=== PATIENT | male | born 1970 | race Caucasian/White ===

== ENCOUNTER 2024-03-17 03:31 | Emergency (ER) | payer OTHER, SELFPAY ==
[2024-03-17 03:31] VITALS: BP 162/98
--- NOTE | 2024-03-17 03:51 | ED.GENMED ---
History of Present Illness
<BHARAT Fuller - Last Filed: 03/17/24 05:41>
General
Chief Complaint: Throat Problem
Source: patient
Exam Limitations: none
Time Seen by Provider: 03/17/24 03:37
Travel History
Have you had any contact with someone who has COVID-19?: No
Do you have any symptoms of coronavirus? Fever > 100 degrees, chills, cough, shortness of breath, sore throat, loss of taste or smell, muscle aches, or headache?: No
History of Present Illness
History of Present Illness:
53 year old male with hx of CAD, HTN, HLD who presents with 24 hours of severe sore throat. Pt states he woke up last night with severe 10/10 sore throat. States the sore throat resolved during the day however it has returned. Currently he reports
7/10 throat pain. Pain worsens with swallowing. He also reports head ache, runny nose, mild cough, and 2 episodes of diarrhea. Denies fevers/chills, chest pain, SOB, body aches, abdominal pain, nausea, or vomiting. Denies any sick contacts or recent
travel. 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 Pt has taken Aspirin 81 mg and cough drops without relief of symptoms. He took tylenol prior to arrival. States the last time he had a sore throat this severe was last year when he had COVID.
Past History
<BHARAT Fuller - Last Filed: 03/17/24 05:41>
Past History
ED Past Medical History: CAD, HTN and Hypercholesterolemia
ED Past Surgical History: Cardiac (Stents X2)
Social History
Tobacco: Former smoker
Alcohol: None
Drug: Marijuana
Personal: Single
Living: alone
Family History
Family History: Early CAD, CAD and Sudden
Review of Systems
<BHARAT Fuller - Last Filed: 03/17/24 05:41>
Review of Systems
Allergies reviewed?: Yes
All Other Systems: ROS reviewed and negative except as documented in HPI and ROS
Constitutional: Reports no symptoms
EENT: Reports sore throat and other (rhinorrhea)
Respiratory: Reports cough
Cardiac: Reports no symptoms
ABD/GI: Reports diarrhea
: Reports no symptoms
Musculoskeletal: Reports no symptoms
Skin: Reports no symptoms
Neurological: Reports headache
Phy Exam
<[facility] - Last Filed: 03/17/24 05:41>
General Physical Exam
General Presentation: well appearing and no apparent distress
General age: appears stated age
General Skin: warm
General Habitus: obese
General Mental: alert
General Hydration: appears well hydrated
ENT Exam
ENT Exam: TM's normal and pharynx normal
Additional ENT: Oropharynx without erythema or swelling. No tonsillar enlargment or exudate
Cardiovascular Exam
Cardiovascular Exam: regular rate/rhythm, no edema, no gallop and no murmur
Pulmonary Exam
Pulmonary Exam: lungs clear, no respiratory distress, no rales, no crackles, no rhonchi and no wheezing
Gastrointestinal Exam
Gastrointestinal Exam: normal bowel sounds, non tender, soft and non distended
Neurological Exam
Neurological Exam: alert and oriented x3
Skin Exam
Skin Exam: normal color and warm/dry
Psychiatric Exam
Psychiatric Exam: normal mood/affect
Course
<[facility] - Last Filed: 03/17/24 05:41>
Orders/Labs/Results
Orders:
Orders
03/17/24 03:40
COVID-19 Antigen Urgent
Source: Nasal Swab
Influenza A+B Rapid Molecular Urgent
CHIDI Source: Nasal Swab
Specimen Description:
Date Specimen was Collected: 03/17/24
Time Specimen was Collected: 03:37
03/17/24 03:41
Rapid Strep Group A Urgent
CHIDI Source: Throat/Pharynx
Specimen Description:
Date Specimen was Collected: 03/17/24
Time Specimen was Collected: 03:37
03/17/24 04:09
Prednisone [Deltasone] 50 mg PO NOW STA
Vital Signs
Initial and Last Documented VS:
Initial Vital Signs
Temp Pulse Resp BP Pulse Ox
97.9 F 80 24 162/98 98
03/17/24 03:31 03/17/24 03:31 03/17/24 03:31 03/17/24 03:31 03/17/24 03:31
Last Documented Vital Signs
Temp Pulse Resp BP Pulse Ox
97.9 F 80 24 162/98 98
03/17/24 03:31 03/17/24 03:31 03/17/24 03:31 03/17/24 03:31 03/17/24 03:31
<Mery Landrum, DO - Last Filed: 03/17/24 04:23>
Orders/Labs/Results
Orders:
Orders
03/17/24 03:40
COVID-19 Antigen Urgent
Source: Nasal Swab
Influenza A+B Rapid Molecular Urgent
CHIDI Source: Nasal Swab
Specimen Description:
Date Specimen was Collected: 03/17/24
Time Specimen was Collected: 03:37
03/17/24 03:41
Rapid Strep Group A Urgent
CHIDI Source: Throat/Pharynx
Specimen Description:
Date Specimen was Collected: 03/17/24
Time Specimen was Collected: 03:37
03/17/24 04:09
Prednisone [Deltasone] 50 mg PO NOW STA
Vital Signs
Initial and Last Documented VS:
Initial Vital Signs
Temp Pulse Resp BP Pulse Ox
97.9 F 80 24 162/98 98
03/17/24 03:31 03/17/24 03:31 03/17/24 03:31 03/17/24 03:31 03/17/24 03:31
Last Documented Vital Signs
Temp Pulse Resp BP Pulse Ox
97.9 F 80 24 162/98 98
03/17/24 03:31 03/17/24 03:31 03/17/24 03:31 03/17/24 03:31 03/17/24 03:31
<BHARAT Fuller - Last Filed: 03/17/24 05:41>
MDM/Problems Addressed
Differential Diagnosis Includes:
viral vs strep pharyngitis
MDM/Problems Addressed:
53 year old male who presents with 24 hours of sore throat.
Chronic conditions affecting care: HTN, CAD and Psychiatric illness
<BHARAT Fuller - Last Filed: 03/17/24 05:41>
*Critical Care Note
Total Time (30-74mins, 75-104mins- exclusive of procedures): Not Applicable
<Mery Landrum DO - Last Filed: 03/17/24 04:23>
*Pulse Oximetry
Patient hypoxic: no
ED Attending Note
<BHARAT Fuller - Last Filed: 03/17/24 05:41>
-
Portions of this chart may have been created with voice recognition software.� Occasional wrong word or��sound alike� substitutions may have occurred due to the inherent limitations of voice recognition software.
<Mrey Landrum DO - Last Filed: 03/17/24 04:23>
ED Attending Note
Patient seen and examined by attending physician: Yes
I performed the substantive portion of visit, reviewed & personally made and approve the management plan that is documented in note by myself or AMARIS.: Yes
I performed a history and physical exam of patient and discussed management with resident, I reviewed resident's note and agree with documented findings and plan of care.: Yes
ED Attending Note:
This is a 53-year-old gentleman who has history of hypertension, hyperlipidemia, CAD, bipolar disorder who complains of 24-hour history of URI symptoms, mainly sore throat accompanied with mild nasal congestion, intermittent dry cough and mild left
ear discomfort. Sore throat is worse tonight waking him from sleep but after waking he took a dose of Tylenol and since arrival to the ED he admits that sore throat is markedly improved. He denies chest pain or shortness of breath, no neck nor
back pain, no abdominal pain, no nausea nor vomiting, no diarrhea nor constipation. He denies fever nor chills.
No known close contacts with similar symptoms.
No recent travel nor recent antibiotic use.
He admits to similar symptoms 1 year ago and tested positive for COVID-19 at that time. COVID URI resolved without sequela.
He has no history of chronic lung disease. No history of diabetes. Prior history of smoking, quit in 2016.
GENERAL: 53-year-old overweight male appears his stated age, he is bright and alert, pleasant, easily communicative and appears in no acute distress. Speech is clear, non-muffled. No cough appreciated during exam.
EYE: anicteric
NECK: Supple, nontender, no meningismus, no significant adenopathy.
ENT: posterior pharynx is minimally injected without edema nor exudate nor ulcerations, scant clear to pearly postnasal drip is noted, oral mucosa is moist. Left TM without redness or bulging but there is note of pearly effusion behind the left TM.
Right TM and canal are clear. Nares have mildly boggy turbinates with scant clear rhinorrhea.
CARDIAC: Regular rate and rhythm. no murmur.
LUNGS: Clear breath sounds bilaterally, no acute respiratory distress, no wheezes/rales/rhonchi
ABDOMEN: Soft, nondistended, without focal tenderness
NEUROLOGICAL: Alert and oriented x3, no focal neuro deficits. Gait is olivares and steady.
SKIN: Warm and dry, normal color, skin intact. No rash.
MUSCULOSKELETAL: No C/C/E. peripheral pulses are full and equal b/l. No palpable tenderness.
PSYCH: Normal and appropriate interaction.
53-year-old gentleman presents with 24-hour history of URI symptoms without fever.
Overall nontoxic in appearance.
Exam remarkable for serous left otitis media, mild turbinate injection with clear rhinorrhea, clear postnasal drip.
Concern for viral URI, COVID URI, less likely influenza, less likely strep pharyngitis.
Rapid strep, influenza and COVID testing are pending. If unremarkable, history/exam and testing most consistent with viral URI with serous left otitis media.
03/17/2024 0418 AM
Rapid strep is negative as is influenza and COVID.
Will treat viral URI, left serous otitis media with a tapering course of prednisone.
Recommend supportive measures, staying well-hydrated on a daily basis, continue Tylenol as needed for pain, fever.
Elevate head of bed at nighttime.
Prompt follow-up with PCP for recheck.
Return precautions discussed.
Discharge Plan
Departure
Patient Disposition: Home (Routine Discharge)
Date of Disposition: 03/17/24
Time of Disposition: 04:20
Patient with high blood pressure during this ER visit?: No
Condition: Good
Discharge Problem:
Viral upper respiratory infection, Acute serous otitis media of left ear
Instructions: Sore Throat, Adult (DC), Serous Otitis Media, Upper respiratory infection in adults - Discharge instructions
Prescriptions:
New
prednisone 10 mg Tablet
See Rx Instructions .ROUTE .COMPLEX Qty: 30 0RF
Rx Instructions:
Take By Mouth:
40 mg daily x3 days, 30 mg daily x3 days,
20 mg daily x3 days, 10 mg daily x3 days.
No Action
clopidogrel 75 MG tablet
75 mg PO DAILY Qty: 90 3RF
lisinopril 40 MG tablet
20 mg PO HS
hydroxyzine HCl 10 MG tablet
10 mg PO HS
atorvastatin 80 MG tablet
80 mg PO HS
metoprolol succinate 50 MG tablet extended release 24 hr
50 mg PO HS
aspirin 81 MG tablet,delayed release (DR/EC)
81 mg PO DAILY
pantoprazole 40 MG tablet,delayed release (DR/EC)
40 mg PO HS
nitroglycerin 0.4 MG tablet, sublingual
0.4 mg sublingual [id number] PRN (Reason: chest pain)
quetiapine [Seroquel XR] 150 MG tablet extended release 24 hr
150 mg PO HS
isosorbide mononitrate 30 MG tablet extended release 24 hr
60 mg PO DAILY
divalproex 500 MG tablet,delayed release (DR/EC)
1,000 mg PO HS
divalproex 500 MG tablet,delayed release (DR/EC)
500 mg PO DAILY
clonazepam 1 MG tablet
1 mg PO BID
albuterol sulfate [ProAir HFA] 90 mcg/actuation Hfa Aerosol Inhaler
2 puff INHALATION R Q4HPRN PRN (Reason: shortness of breath) Qty: 6.7 0RF
tramadol 100 mg tablet
100 mg PO Q4H PRN (Reason: pain) Qty: 11 0RF
penicillin V potassium 500 mg tablet
500 mg PO Q6H 7 Days Qty: 28 0RF
tramadol 50 mg tablet
50 mg PO Q6H PRN (Reason: pain) Qty: 19 0RF
Rx Instructions:
1-2 tablets q6h prn pain
Referrals:
Jermaine Hager PA-C [Family Provider] -
Interventions
Interventions:
*Risk Screen - Suicide Last Done: 03/17/24 03:31
*Neglect/Abuse Screening Last Done: 03/17/24 03:31
*Nursing Disposition Last Done: 03/17/24 04:28
ED-EENT Assessment Last Done: 03/17/24 04:12
ED- Pulmonary Assessment Last Done: 03/17/24 04:12
Discharge Date and Time
Discharge Date/Time: 03/17/24 04:28
Print Language: WALLISIAN
[2024-03-17 04:04] LABS: COVID-19 Antigen Negative (Negative)
[2024-03-17] MEDS: DELTASONE 50 MG PO (04:25)
== END 2024-03-17 04:28 | disposition home or self-care (01) ==
LOC: EMR 03:31
PROVIDERS: EMERGENCY PHYSICIAN Emergency Medicine; FAMILY PHYSICIAN Physician Assistant Medical
DX: J06.9 Acute upper respiratory infection, unspecified (principal); H65.02 Acute serous otitis media, left ear; I10 Essential (primary) hypertension; I25.10 Atherosclerotic heart disease of native coronary artery without angina pectoris; F31.9 Bipolar disorder, unspecified; E78.00 Pure hypercholesterolemia, unspecified; Z11.52 Encounter for screening for COVID-19; Z87.891 Personal history of nicotine dependence
CPT/HCPCS: 99283; 87070; 87502; 87811; 87880

== ENCOUNTER 2024-03-29 17:08 | Inpatient (IN) | payer OTHER, SELFPAY ==
[2024-03-29] VITALS (9 sets, daily range): BP systolic 120–160; BP diastolic 76–97; BMI 40.4
--- NOTE | 2024-03-29 14:23 | ED.GENMED ---
History of Present Illness
General
Chief Complaint: Chest Pain
Source: patient
Exam Limitations: none
Time Seen by Provider: 03/29/24 14:19
Nursing documentation reviewed up to this point in time: agreed with
Travel History
Have you had any contact with someone who has COVID-19?: No
Do you have any symptoms of coronavirus? Fever > 100 degrees, chills, cough, shortness of breath, sore throat, loss of taste or smell, muscle aches, or headache?: No
History of Present Illness
History of Present Illness:
53 yo male presents emergency department due to chest pain started an hour ago. He has been having chest pain every day for the past month. He has multiple cardiac stents and follows with Dr. Melton. It is in the center of his chest and the left
side of his chest. He takes isosorbide and it does help him. Worse with exertion.
Past History
Past History
ED Past Medical History: CAD, HTN and Hypercholesterolemia
ED Past Surgical History: Cardiac (Stents X2)
Social History
Tobacco: Former smoker
Alcohol: None
Drug: Marijuana
Personal: Single
Living: alone
Family History
Family History: Early CAD, CAD and Sudden
Review of Systems
Review of Systems
Allergies reviewed?: Yes
All Other Systems: Not applicable
Constitutional: Reports no symptoms
EENT: Reports no symptoms
Respiratory: Reports no symptoms
Cardiac: Reports chest pain
ABD/GI: Reports no symptoms
: Reports no symptoms
Musculoskeletal: Reports no symptoms
Skin: Reports no symptoms
Neurological: Reports no symptoms
Endocrine: Reports no symptoms
Hematologic/Lymphatic: Reports no symptoms
Psychiatric: Reports no symptoms
Phy Exam
Physical Exam
Physical Exam:
Physical Exam
General: no apparent distress, not acutely ill
Neck: supple. no meningeal signs. normal posterior pharynx
Heart: s1/s2 regular rate and rhythm, no murmur. equal radial
pulses.
HEENT: Pupils equal round reactive to light, EOMI
Lungs: no acute respiratory distress. clear bilaterally
Abdomen: normal bowel sounds. not tender. no CVAT
Neuro: alert and oriented. no focal neurological deficits cranial nerves II through XII intact
Skin: no rash
Psychiatric: well kept. interactive and cooperative
Extremities: no edema. no calf tenderness. negative homans. good distal pulses
Scores
Heart Score for Chest Pain Patients
STEMI patient?: No
History: Moderately Suspicious
ECG: Nonspecific Repolarization
Age: >45 - <65 years
Risk Factors: >/= 3 Risk Factors or History of CAD
Troponin: >/= 3 x Normal Limit
Heart Score for Chest Pain Patients: 7
Heart Score Risk: 72.7 % MACE over next 6 weeks
Course
Orders/Labs/Results
Orders:
Orders
03/29/24 13:09
Electrocardiogram (*1) Urgent
Reason for Study: Chest Pain
EKG- Treatment ONCE
03/29/24 14:20
Complete Blood Count/With Diff Urgent
Comprehensive Metabolic Panel Urgent
D-Dimer Urgent
Glycohemoglobin (HgbA1c) Urgent
Magnesium Urgent
PTT Urgent
Comment: HGBA1C & PTT ADDED ON BY FLOOR 3PM 03-29-24
Troponin I Urgent
03/29/24 14:44
Aspirin Chewable [Low Strength Aspirin] 324 mg PO NOW STA
03/29/24 Dinner
NPO
Allow oral meds: Yes
Allow clear liquids: No
NPO with Ice Chips: No
03/29/24 15:06
Add On- LAB Routine
Tests Added?: Hgba1c
03/29/24 15:07
Echo 2D MMode Color/Doppler Urgent
Reason for Study: CAD, chest pain
03/29/24 15:09
Heparin 4,000 units IV NOW STA
Heparin Protocol- PTT Orders As Directed
PTT per Heparin protocol: -Obtain CBC and baseline PTT - if not already collected.
-Obtain PTT 6 hours from start of infusion. Then, every 6 hours until 2 consecutive
PTT's are therapeutic. Then, PTT Daily.
-With each rate change, obtain PTT every 6 hours until 2 consecutive PTT's are
therapeutic. Then, PTT Daily.
Notify MD As Directed
Notify physician if: PTT is greater than or equal to 200.
03/29/24 15:12
Add On- LAB Urgent
Tests Added?: PTT
03/29/24 15:15
Heparin 18800 Units/250 ml 25,000 units in 250 ml IV PER PROTOCOL
Weight to be used for heparin protocol in kilograms (kg):: 124
Protocol:: Cardiac Tx/Acute Coronary
PTT Goal Range to be used:: PTT 73 to 111 seconds
Order type:: Initial
INITIAL Infusion Dose (UNITS/KG/hr) & then follow protocol:: 12 units/kg/hr
Infusion Dose in UNITS/hr & then follow protocol (UNITS/hr):: 1,000
INFUSION RATE in mL/hr & then follow protocol (mL/hr):: 10
PTT less than or equal to 64 seconds:: Increase rate by 200 units/hr (+ 2 mL/hr)
PTT 64.1 to 72.9 seconds:: Increase rate by 100 units/hr (+ 1 mL/hr)
PTT 73 to 111 seconds:: Target Range. No change in rate.
PTT 111.1 to 130.9 seconds:: Decrease rate by 100 units/hr (- 1 mL/hr)
PTT 131 to 199.9 seconds:: HOLD for 1 hr. Then decrease rate by 200 units/hr (- 2 mL/hr)
PTT greater than or equal to 200 seconds:: HOLD for 2 hrs & Notify Provider. Then decrease by 200 units/hr (-
2 mL/hr)
Lab follow-up:: Each change, PTT q6h until 2 consecutive are therapeutic. Then PTT
daily.
03/29/24 16:00
CARDIOLOGY CONSULT Routine
Consulting Provider: Kraig Chapa
Was physician already notified: Yes
Reason for consult: [place]
03/29/24 16:03
Clopidogrel Bisulfate [Plavix] 75 mg PO NOW STA
03/29/24 16:07
Admit/Transfer Patient As Directed
Co-Sign Provider:
Level of Care: Inpatient admission
Assign to:: IVU
Physician / Group: darius mckenna
Diagnosis: Unstable angina
Reason for Hospitalization: Unstable angina
Expected length of stay greater than two midnights?: Yes
ELOS- Estimated Length of Stay in days: 3
I certify the patient meets the requirements for IP care: Yes
Code Status As Directed
Resuscitation Status: Full Code
03/29/24 16:14
Nitroglycerin Sublingual [Nitrostat (Sublingual)] 0.4 mg SL NOW STA
03/29/24 16:16
Verapamil Injectable [Isoptin/Verapamil Injection] 5 mg .ROUTE .STK-MED ONE
03/29/24 16:17
Heparin 1000 Units/500 ml [Heparin] 1,000 units in 500 ml .ROUTE .STK-MED
Heparin Sodium,Porcine/Ns/Pf [Heparin 2000 Units/1000 ml] 2,000 unit in 1,000 ml .ROUTE .STK-MED
Lidocaine HCl/Pf [Xylocaine-Mpf 1% Vial] 50 mg .ROUTE .STK-MED ONE
Nitroglycerin [Tridil] 1,500 mcg .ROUTE .STK-MED ONE
03/29/24 16:23
Fentanyl Citrate/Pf [Sublimaze] 100 mcg .ROUTE .STK-MED ONE
Heparin 10,000 units .ROUTE .STK-MED ONE
Midazolam HCl [Versed] 2 mg .ROUTE .STK-MED ONE
03/29/24 17:31
Dextrose 50%-Water [Dextrose 50% Syringe] 12.5 grams IV [id number] PRN
Glucagon [GlucaGen] 1 mg IM PRN PRN
Insulin Aspart Corrective Low [Novolog Flexpen-Low Resistance] See Protocol SC AC
acetaminophen 1,300 mg PO Q8HPRN PRN
03/29/24 17:31
VTE Contraindication Routine
VTE Mechanical Device Contraindication: Medical Contraindication
Pharmocologic Contraindication: Medical Contraindication
Comment: pt on iv heparin
Activity As Directed
Activity Level: As Tolerated
Bedside Glucose Monitoring As Directed
Frequency: AC&HS
Additional Instructions:: Change to q6h if pt on TPN, tube feeding or not eating
Intake/ Output As Directed
Frequency: Per unit guidelines
Vital Signs As Directed
Frequency: Per unit guidelines
Weight As Directed
Frequency: Daily
Ot Eval And Treat Routine
Pt Eval And Treat Routine
Activity Level: As Tolerated
03/29/24 20:00
Clonazepam [Klonopin] 1 mg PO BID
03/29/24 22:00
Atorvastatin [Lipitor] 80 mg PO HS
Divalproex Delayed Rel. 12 Hr [Depakote (12 Hr Release)] 1,000 mg PO HS
HydrOXYZINE [Atarax] 10 mg PO HS
Lisinopril [Zestril] 20 mg PO HS
Metoprolol Xl [Toprol Xl] 50 mg PO HS
Pantoprazole [Protonix] 40 mg PO HS
Trazodone [Desyrel] 100 mg PO HS
03/30/24 06:00
EKG [Electrocardiogram (*1)] IN AM
Reason for Study: Chest Pain
Cardiovascular Evaluation IN AM
Complete Blood Count/With Diff IN AM
Glycohemoglobin (HgbA1c) IN AM
03/30/24 08:00
Bupropion(12Hr)Sustain Release [WELLBUTRIN SR (12 hour sustained release)] 200 mg PO DAILY
Divalproex Delayed Rel. 12 Hr [Depakote (12 Hr Release)] 500 mg PO DAILY
ISOSORBIDE MONOnitrate ER [Imdur (Extended Release)] 60 mg PO DAILY
Lamotrigine [Lamictal] 100 mg PO DAILY
Abnormal Lab Results
03/29/24
14:20
Abs Immat Gran (auto) 0.1 H 10^3/uL
(0-0.05)
Immature Gran % 1.4 H %
(0-0.5)
Glucose 205 H mg/dl
(70-99)
Troponin I 0.200 H* ng/ml
03/29/24 14:20
03/29/24 14:20
Vital Signs
Initial and Last Documented VS:
Initial Vital Signs
Temp Pulse Resp BP Pulse Ox
97.9 F 86 20 160/97 97
03/29/24 13:13 03/29/24 13:13 03/29/24 13:13 03/29/24 13:13 03/29/24 13:13
Last Documented Vital Signs
Temp Pulse Resp BP Pulse Ox
97.6 F 72 20 141/89 97
03/29/24 17:47 03/29/24 16:15 03/29/24 17:47 03/29/24 14:06 03/29/24 18:30
MDM/Problems Addressed
Differential Diagnosis Includes:
ACS, PE
MDM/Problems Addressed:
53-year-old male with NSTEMI. Admit to hospitalist. Discussed with Dr. Chapa, who states patient will go to [facility].
Chronic conditions affecting care: CAD
Acute Exacerbation and/or Progression of Chronic Illness: CAD
*Pulse Oximetry
Patient hypoxic: no
*EKG
Interpreted by ED Provider?: Yes
EKG Intrepretation Date: 03/29/24
EKG Intrepretation Time: 13:12
Interpretation: abnormal
Comparison EKG: no changes
Heart Rate: 74
Rate: normal
Rhythm: sinus
Lohman: normal axis
Interval: normal interval
QRS Pattern: normal QRS
Ischemia: non-specific ST changes
*Talent Agent Interpretation
Rate: normal
Interpretation: normal
Heart Rate: 68
Rhythm: sinus
*Critical Care Note
Total Time (30-74mins, 75-104mins- exclusive of procedures): 30
comment:
Critical care statement: A total of 30 minutes of critical care time was provided for this patient. This includes management of unstable vital signs, evaluation of the patient at bedside, reviewing the patient's pertinent medical records, discussion
with consultants, review of old EKGs and review of pertinent medical records. This time with separate from time utilized to perform the aforementioned documented procedures
Data Reviewed
Review of Other/Old Records Reveals: Operative Reports (Prior cardiac catheterization 04/12/2021, OM 2 stenosis with SHANA placed)
Source: records
Patient Management
Discussion with other providers: Hospitalist and [employer] (Cardiology Dr. Chapa)
Escalation/DeEscalation of care consider admission/obs:
Admit indicated
ED Attending Note
-
Portions of this chart may have been created with voice recognition software.� Occasional wrong word or��sound alike� substitutions may have occurred due to the inherent limitations of voice recognition software.
Discharge Plan
Departure
Patient Disposition: Admit
Date of Disposition: 03/29/24
Time of Disposition: 15:04
Admit to: IVU
Presentation/result/management discussed w/ accepting MD/DO: Hospitalist
Patient with high blood pressure during this ER visit?: Yes
Condition: Good
Discharge Problem:
Unstable angina
Interventions
Interventions:
*Risk Screen - Suicide Last Done: 03/29/24 13:13
*General Assessment Last Done: 03/29/24 13:13
*Neglect/Abuse Screening Last Done: 03/29/24 13:13
ED- Fall Risk Assessment Last Done: 03/29/24 14:03
*ED COVID-19 Vaccine History Last Done: 03/29/24 13:56
*Nursing Disposition Last Done: 03/29/24 16:42
ED- Cardiac Assessment Last Done: 03/29/24 14:03
Discharge Date and Time
Discharge Date/Time: 03/29/24 16:44
[2024-03-29 14:27] LABS: % Basophils 0.3 % (0-2); % Eosinophils 0.8 % (0-6); % Immature Granulocytes 1.4 % (0-0.5); % Lymphocytes 26.3 % (20.5-51.1); % Monocytes 6.4 % (1.7-9.3); % Neutrophils 64.8 % (42.2-75.2); Absolute Eosinophils 0.1 10^3/uL (0-0.7); Absolute Immature Granulocytes 0.1 10^3/uL (0-0.05); Absolute Lymphocytes 2.6 10^3/uL (1.2-3.4); Absolute Monocytes 0.6 10^3/uL (0.1-0.6); Absolute Neutrophils 6.5 10^3/uL (1.4-6.5); Hematocrit 42.8 % (39.0-52.0); Hemoglobin 14.4 g/dL (13.0-18.0); Mean Corp Hgb Conc. 33.6 g/dL (33.0-37.0); Mean Corpuscular Hgb 29.4 pg (27.0-31.0); Mean Corpuscular Volume 87.3 fL (80.0-94.0); Mean Platelet Volume 9.4 fL (7.4-10.4); Nucleated Red Blood Cells % 0 % (-); Platelet Count 206 10^3/uL (130-400); Red Cell Dist. Width 13.8 % (11.5-14.5)
[2024-03-29 14:43] LABS: ALT (SGPT) 34 U/L (0-50); AST (SGOT) 23 U/L (17-59); Albumin 4.1 g/dl (3.5-5.0); Alkaline Phosphatase 69 U/L (38-126); Blood Urea Nitrogen 13 mg/dl (9-20); Calcium 9.6 mg/dl (8.4-10.2); Carbon Dioxide 26 mmol/L (22-30); Chloride 102 mmol/L (98-107); Estimated Creatinine Clearance > 125 ml/min; Glucose 205 mg/dl (70-99); Magnesium 1.8 mg/dl (1.6-2.3); Potassium 3.9 mmol/L (3.5-5.1); Sodium 138 mmol/L (135-145); Total Bilirubin 0.3 mg/dl (0.2-1.3); Total Protein 6.9 g/dl (6.3-8.2); eGFR > 60.00
[2024-03-29] MEDS: LOW STRENGTH ASPIRIN 324 MG PO (15:00)
[2024-03-29 15:05] LABS: D-Dimer < 0.27 ug/mlFEU (0.00-0.50)
[2024-03-29] MEDS: HEPARIN 25000 UNITS/250 ML IV ×2 (15:19→23:33)
[2024-03-29] MEDS: HEPARIN 4000 UNITS IV (15:19)
--- NOTE | 2024-03-29 15:30 | CON.CAR ---
Addendum entered and electronically signed by Kraig Chapa MD 03/29/24 17:26:
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
-53-year-old male with CAD status-post multiple stents over the past decade (partially noncompliant with Cardiology follow-up and medications as patient was last seen in the office over a year and a half ago, and he stopped taking aspirin 6 months
ago), hypertension, hyperlipidemia, diabetes (likely poorly controlled), obesity, and severe anxiety/depression (on multiple medications for this) presenting with chest pain highly concerning for unstable angina.
-The patient's troponin is mildly elevated, concerning for an NSTEMI.
-Will start the patient on a heparin drip; full dose aspirin now.
-Case discussed with Interventional Cardiology; cardiac catheterization recommended today.
-Admit to the Hospitalist service, given comorbidities listed above.
-Check hemoglobin A1c and lipid panel.
-High-dose statin.
-Telemetry monitoring; will follow.
Original Note:
Consultation
Consultation Request
Date/Time Consultation Requested: 03/29/24 3p
Date/Time Consultation Performed: 03/29/24 3:15p
Requesting Provider: Dr. Carnes
Performing Provider: RAFAT Izquierdo for Dr. Chapa
Reason for Consultation: chest pain
Medical History
-
Chief Complaint: chest pain
History of Present Illness:
Mr. Kuhn is a 53 year-old male with CAD (RCA, LCx SHANA 07/2016, then mid LAD SHANA 07/2017, then SHANA of high-grade ostial OM2 03/2021), hypertension, former tobacco use (quit 10 years ago), dyslipidemia, NIDDM, obesity, and anxiety, who presents to the
ER with c/o chest pain for 1 month. Chest pain is severe, occurs sometimes with rest and always with exertion, and resolves with rest. He admits to NOT taking ASA 81mg daily for the last 6 months for unclear reasons. Currently his chest pain is a
11/01. He has not been seen in our office in 2 years. EKG NSR 74 bpm, unchanged from previous. Initial troponin 0.200.
Past Medical History
Past Medical History: Other (as above)
Past Surgical History: Orthopedic (left knee)
Social History
Tobacco: Former Smoker (quit 10 years ago)
Alcohol: None
Personal: Single
Living: With Roomate (girlfriend )
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
Allergies / Home Medications
Allergy/AdvReac Type Severity Reaction Status Date / Time
No Known Allergies Allergy Verified 03/29/24 13:17
�Medication �Instructions �Recorded �Confirmed �Type
clopidogrel 75 mg tablet 75 mg PO DAILY ##90 08/09/16 04/12/21 Rx
hydroxyzine HCl 10 mg tablet 10 mg PO HS 03/30/17 04/12/21 History
lisinopril 40 mg tablet 20 mg PO HS 03/30/17 04/12/21 History
aspirin 81 mg tablet,delayed 81 mg PO DAILY 08/21/17 04/13/21 History
release
atorvastatin 80 mg tablet 80 mg PO HS 08/21/17 04/12/21 History
metoprolol succinate 50 mg 50 mg PO HS 08/21/17 04/12/21 History
tablet,extended release 24 hr
nitroglycerin 0.4 mg sublingual 0.4 mg sublingual [id number] PRN 09/14/18 04/12/21 History
tablet chest pain
pantoprazole 40 mg tablet,delayed 40 mg PO HS 09/14/18 04/12/21 History
release
clonazepam 1 mg tablet 1 mg PO BID 04/12/21 04/12/21 History
divalproex 500 mg tablet,delayed 1,000 mg PO HS 04/12/21 04/12/21 History
release
divalproex 500 mg tablet,delayed 500 mg PO DAILY 04/12/21 04/12/21 History
release
isosorbide mononitrate 30 mg 60 mg PO DAILY 04/12/21 04/12/21 History
tablet,extended release 24 hr
quetiapine 150 mg tablet,extended 150 mg PO HS 04/12/21 04/12/21 History
release 24 hr (Seroquel XR)
albuterol sulfate 90 mcg/actuation 2 puff inhalation R Q4HPRN PRN 02/04/23 Rx
aerosol inhaler (ProAir HFA) shortness of breath #6.7 grams
penicillin V potassium 500 mg 500 mg PO Q6H 7 days #28 tabs 02/18/23 Rx
tablet
tramadol 100 mg tablet 100 mg PO Q4H PRN pain #11 tabs 02/18/23 Rx
tramadol 50 mg tablet 50 mg PO Q6H PRN pain #19 tabs 02/18/23 Rx
prednisone 10 mg tablet See Rx Instructions .Route 03/17/24 Rx
.COMPLEX #30 tabs
Review of Systems
-
History Source: Patient
All other systems: Negative unless noted
Physical Exam
Vital Signs
Temp Pulse Resp BP Pulse Ox
97.9 F 82 20 141/89 96
03/29/24 13:13 03/29/24 14:06 03/29/24 13:13 03/29/24 14:06 03/29/24 14:06
Lab Results
03/29/24 14:20
03/29/24 14:20
Troponin I 0.200 ng/ml H* 03/29/24 14:20
Physical Exam
General: Well Developed, Well Nourished and No Apparent Distress
HEENT: Normocephalic, Anicteric and Moist Mucous Membranes
Respiratory: Clear
Cardiac: S1/S2 and Regular Rhythm
GI: Soft, Non Tender and Normal Bowel Sounds
Rectal: Deferred by Provider
Genito-urinary: No Costovertebral Tender
Musculoskeletal: No Clubbing, No Cyanosis and No Edema
Skin: Warm and Dry
Neuro: AO x 3
Hematologic/Lymphatic: No Lymphadenopathy
Psych: Calm
Impression / Plan
-
NSTEMI - initial troponin 0.200, trend to peak.
- exertional and non-exertional chest pain for 1 month, resolves with rest.
- ASA 325mg and IV Heparin drip.
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
CAD - SHANA to RCA, LCX, mid LAD and ostial OM2 (2020).
- NSTEMI as above.
- has not been taking ASA 81mg daily, unclear reasons.
- he has not been seen in our office in 2 years.
- suspect medication noncompliance.
HTN - continue outpatient meds, lisinopril, Toprol, Imdur.
- monitor.
HLD - Lipitor 80mg daily.
- lipid profile in 2021 - TC 238, TG 285, LDL 150, HDL 35.
- check lipid profile.
- with CAD, goal LDL is < 55.
NIDDM - on metformin per pcp.
- hgba1c 6.8% 08/2022.
- per hospitalist.
Anxiety - continue meds.
Data Reviewed
-
EKG: Tracing Personally Visualized and interpreted (NSR 74 bpm, unchanged from previous.)
Labs: Labs Reviewed by me
Old Records: Reviewed
[2024-03-29 15:33] LABS: APTT 26.9 Sec (23.4-35.0)
--- NOTE | 2024-03-29 15:35 | HPS.HSE ---
Addendum entered and electronically signed by Edis Russell MD 03/29/24 16:16:
I saw and examined the patient.
The HAND CHAIN MAKER or PA's note was reviewed and I agree with the note.
Comment:
53 yo male w/ pmhx of �HTN, HLD, CAD/stent circumflex, RCA, 2016, OM 24 March 2021, history of CAD with LAD disease, arthritis, eczema, bipolar disorder, depression, history of COVID, hemorrhoids now coming in for chest pain an hour ago.� Describes
chest pain in the center and left side of his chest, worsened with exertion. Has been happening intermittently for about 1 month. Has not taken asa for 6 months. Stopped on his own. �Vitals, BP 141/89, pulse 82, respiratory rate of 20, afebrile.� 97
percent on room air.� Troponin is 0.2.� EKG with no obvious acute findings.� Admitted to medicine due to mild hyperglycemia, bipolar disease.� Plan�unstable angina, planning for cath today.� Aspirin, heparin drip. �Statin hydration. �Follow-up with
lipid panel, hemoglobin A1c.� Insulin sliding scale, will hold metformin. Cont psych meds
Original Note:
Family Physician
-
Family Physician: Jermaine Hager
Chief Complaint
-
Chest pain
History of Present Illness
53-year-old male complaining of chest pain midsternal on and off for the past few weeks lasting approximately 1 hour. He does report occasional indigestion did have some today after eating eggs and biscuits this morning. He reports he missed his
Protonix for the past few days. He denies any radiation of the chest pain, diaphoresis, nausea, fever, chills, shortness breath, cough, abdominal pain, nausea, vomiting, diarrhea, urinary symptoms. He has past medical history of CAD with 4 stents.
He does state that he has not been taking his aspirin for at least 6 months to 1 year because he forgot. He also reports he stopped his Seroquel and Ambien as the combination of those with his other medications was making him confused and walking
into bill.
He has past medical history HTN, HLD, CAD/stent circumflex, RCA, 2015, OM 24 March 2021, history of CAD with LAD disease, arthritis, eczema, bipolar disorder, depression, history of COVID, hemorrhoids, obesity due to excess calorie consumption�BMI
40.4 kg.
Medical History
Past Medical History
Past Medical History: Reports Other
Additional Past Medical History:
HTN
HLD
CAD/stent circumflex, RCA, 2015, OM 24 March 2021, history of CAD with LAD disease
Former smoker 35-year 1 pack a day quit 10 years ago
arthritis
eczema
bipolar disorder
depression
Morbid obesity
history of COVID
hemorrhoids
Past Surgical History: Reports Other
Additional Past Surgical History:
Knee arthroscopy 20 years ago
Undescended testicle repair 35 years ago
PTCA/stent circumflex, RCA 08/08/2016, stent OM 11/28/2020
Left knee meniscus repair 2020
Social History
Tobacco: Former Smoker (Former smoker 35-year 1 pack a day quit 10 years ago)
Drug: None
Personal: Other (Girlfriend Marianela)
Living: With Family (Girlfriend Marianela)
Family History
Family History: CAD (Mother and father CAD/CABG both 74) and Other (Brother history multiple CVA starting at age 30 age 65, brother drug overdose, 1 brother/1 sister estranged from)
Allergies / Home Medications
Allergies reflects when Allergies were last updated in [facility].
Home Medications with original date entered in [facility]
Allergy/Medication List:
Allergies
Allergy/AdvReac Type Severity Reaction Status Date / Time
No Known Allergies Allergy Verified 03/29/24 13:17
Home Medications
clopidogrel 75 mg tablet 75 mg PO DAILY ##90 08/09/16
hydroxyzine HCl 10 mg tablet 10 mg PO HS 03/30/17
lisinopril 40 mg tablet 20 mg PO HS 03/30/17
atorvastatin 80 mg tablet 80 mg PO HS 08/21/17
metoprolol succinate 50 mg tablet,extended release 24 hr 50 mg PO HS 08/21/17
nitroglycerin 0.4 mg sublingual tablet 0.4 mg sublingual [id number] PRN chest pain 09/14/18
pantoprazole 40 mg tablet,delayed release 40 mg PO HS 09/14/18
clonazepam 1 mg tablet 1 mg PO BID 04/12/21
divalproex 500 mg tablet,delayed release 1,000 mg PO HS 04/12/21
divalproex 500 mg tablet,delayed release 500 mg PO DAILY 04/12/21
acetaminophen 650 mg tablet,extended release 1,300 mg PO Q8HPRN PRN mild pain 03/29/24
bupropion HCl 200 mg tablet,12 hr sustained-release 200 mg PO DAILY 03/29/24
isosorbide mononitrate 60 mg tablet,extended release 24 hr 60 mg PO DAILY 03/29/24
lamotrigine 100 mg tablet 100 mg PO DAILY 03/29/24
metformin 500 mg tablet 500 mg PO DAILY 03/29/24
quetiapine 400 mg tablet,extended release 24 hr 400 mg PO HS 03/29/24
trazodone 100 mg tablet 100 mg PO HS 03/29/24
zolpidem 10 mg tablet 10 mg PO HS 03/29/24
Review of Systems
-
History Source: Patient
A 12 point ROS was completed and negative except as noted: Yes
Constitutional: Denies Fever, Fatigue or Chills
EENT: Denies Sore Throat or Runny Nose
Respiratory: Denies Cough or Trouble Breathing
Cardiac: Reports Chest Pain (Midsternal); Denies Diaphoresis, Palpitations or Syncope
Abdomen/GI: Reports Other (Indigestion today); Denies Abdominal Pain, Nausea, Vomiting, Diarrhea, Constipated, Bloody Stools or Black Stools
: Denies Dysuria, Frequency, Flank Pain, Incontinence, Difficulty Voiding or Urgency
Musculoskeletal: Denies Joint Pain or Edema
Skin: Denies Itching or Rash
Neurological: Denies Dizzy, Headache or Weakness
Endocrine: Reports No Symptoms
Hematologic/Lymphatic: Reports No Symptoms
Psych: Reports Calm
Physical Exam
Vital Signs
Vital Signs
Temp Pulse Resp BP Pulse Ox
97.9 F 82 20 141/89 96
03/29/24 13:13 03/29/24 14:06 03/29/24 13:13 03/29/24 14:06 03/29/24 14:06
Physical Exam
General: Conversant, Pain (2/10) and Morbidly Obese; No Chills
HEENT: NormoCephalic, Anicteric, Moist mucous membranes, PERRLA, [place] Conjunctivae and No Ptosis
Respiratory: Clear; No Wheezes, Rales or Rhonchi
Cardiac: S1/S2 and Regular Rhythm; No Murmur, Rub, Gallop or Peripheral Edema
Breast: Deferred by me
GI: Soft, Non Tender, Non Distended, Normal Bowel Sounds and No Hepatosplenomegaly
Genito-urinary: Deferred by me
Musculoskeletal: No Clubbing, No Cyanosis and No Edema
Skin: Warm and Dry; No Rash
Neuro: AO x 3, No Motor Deficits, Nonfocal/grossly intact, Cranial Nerves Intact and No Sensory Deficits; No Slurred Speech, Facial Droop or Tremors
Psych: Calm
Laboratory Results
-
03/29/24 14:20
03/29/24 14:20
Laboratory Results
Total Bilirubin 0.3 mg/dl (0.2-1.3) 03/29/24 14:20
AST 23 U/L (17-59) 03/29/24 14:20
ALT 34 U/L (0-50) 03/29/24 14:20
Alkaline Phosphatase 69 U/L (38-126) 03/29/24 14:20
Troponin I 0.200 ng/ml H* 03/29/24 14:20
Data Reviewed
-
Lab Data: Labs Reviewed by me
Impression/Plan
-
Impression/plan:
Admit to IVU
#Unstable angina with troponin elevation
#CAD�PTCA/stent circumflex, RCA 08/08/2016, stent OM 11/28/2020
Troponin 0.2 will trend
-N.p.o. for cath today
-Check lipid profile, HgbA1c
-IV heparin drip
-Will give patient's Plavix 75 mg now he missed this a.m.
-Nitro sublingual now for current chest pain short of 10
-Aspirin 324 mg now then aspirin 81 mg daily(patient had stopped it 6 months - 1 year ago)
-Continue atorvastatin 80 mg at bedtime, Plavix 75 mg daily, Imdur 60 mg daily, metoprolol succinate 50 mg at bedtime
2D echo 12/26/2019: EF 55 to 60%, mild LVH, no valvular disease
EKG: NSR 74 bpm, QTc 386 MS no significant change from February 04, 2023
#HTN�benign
BP 141/89
-Continue lisinopril 20 mg at bedtime, Imdur 60 mg daily, metoprolol succinate 50 mg at bedtime with hold parameters
#DM2 with hyperglycemia
BS 205
Accu-Cheks with SSI, check HgbA1c
-Hold metformin 500 mg daily
#GERD
-Continue Protonix 40 mg at bedtime
#Bipolar disorder
-Continue , trazodone 100 mg at bedtime, Depakote 500 mg a.m., 1000 g at bedtime, Wellbutrin 20 mg daily
-Continue clonazepam 1 mg twice daily
-Pt stopped Seroquel 400 mg at bedtime/, Ambien 10 mg at bedtime 2 weeks ago due to feeling off and walking into bill
#Insomnia
-Continue hydroxyzine 10 mg at bedtime
Pt stopped , Ambien 10 mg at bedtime 2 weeks ago
#Obesity due to excess calorie consumption�BMI 40.4 kg
Affects all aspects of care
-Weight loss recommended, low-fat diet
DVT prophylaxis
-Continue IV heparin drip
Full code
[2024-03-29] MEDS: PLAVIX 75 MG PO (16:11)
--- NOTE | 2024-03-29 17:41 | ITS.CL.CATH ---
Health Unit Clerk - Catheterization
Cardiac Catheterization
Procedure Report:
CARDIAC CATHETERIZATION REPORT
Date of Procedure: 03/29/2024
Referring: Kraig Chapa M.D.
INDICATION: Non-ST elevation myocardial infarction.
PROCEDURE:
1. Left heart catheterization.
2. Coronary angiography.
3. Successful IVUS of the left main coronary artery.
ACCESS:
6 [place] right radial artery.
CATHETERS:
1. 5 [place] JR4.
2. 5 [place] JL 3.5.
3. 6 [place] JL 3.5 guiding catheter.
HEMODYNAMIC DATA
Weight (kg): 123.8
AO (s/d/x, mmHg): 141/86/107
LV (s/x mmHg): 141/16
LEFT VENTRICULOGRAPHY: Not performed.
CORONARY ANGIOGRAPHY
Dominance: Right.
Left Main: Normal size, trifurcating vessel. There is a 50-60%, hazy lesion in the mid vessel.
LAD: Normal size vessel giving rise to several small diagonals. A patent stent is visible in the proximal/mid vessel. There is no evidence of in-stent restenosis. There are minor luminal irregularities.
Ramus: Small size, diminutive vessel.
Circumflex: Large size, nondominant vessel giving rise to 2 obtuse marginals then ending is a small left posterolateral branch. A patent stent is visible in the proximal circumflex going into OM1. There is no evidence of in-stent restenosis.
There are minor luminal irregularities.
RCA: Normal size, dominant vessel. A patent stent is visible in the proximal vessel with no evidence of in-stent restenosis. There are minor luminal irregularities.
INTERVENTION(S)
1. Successful IVUS of the hazy, 50-60% mid left main coronary artery lesion demonstrating hemodynamically significant disease (MLA = 4.5 mm�).
Narrative:
The decision was made to perform intracoronary imaging. The diagnostic catheter was removed over a wire and exchanged for 6 [place] JL 3.5 guiding catheter. The guiding catheter was advanced into the ascending aorta and seated in the left main
coronary artery. Additional heparin was given to obtain an ACT greater than 250 seconds. After crossing the lesion with a coronary wire, an IVUS catheter was advanced through the guiding catheter and into the ostium of the artery. Ring down was
performed once the imaging crystal was no longer inside of the guiding catheter. The IVUS catheter was advanced into the proximal LAD. Intravascular ultrasound was performed in a retrograde fashion using a slow pullback. Intracoronary imaging
demonstrated calcified atherosclerotic disease in the proximal LAD with severe stenosis in the mid left main coronary artery. Minimal luminal area was measured at 4.5 mm�. The lesion was measured several times. The IVUS catheter was withdrawn,
the wire was pulled back and the catheter was disengaged. The catheter was removed over a J-wire.
Closure Device: Vascular band.
Radiation (mGy): 611.83
DAP (cm2.Gy): 54.5705
Fluoroscopy time (minutes): 5.2
Sedation time (minutes): 36
CONCLUSIONS
1. Right dominant circulation with a hemodynamically significant 58-60%, hazy mid left main coronary artery lesion, patent stents in the LAD, circumflex and OM1 and proximal RCA, all without in-stent restenosis and minor luminal irregularities.
2. Top normal to mildly elevated filling pressures (LVEDP = 16 mmHg at 123.8 kg).
3. Diabetes mellitus.
RECOMMENDATIONS:
1. Expectant management after cardiac catheterization via right radial approach.
2. Limited weight bearing on the right wrist for one week.
3. Consultation with CT surgery regarding optimal revascularization technique given diabetes and left main stenosis.
4. Trend troponins to peak.
5. Echocardiogram pending.
6. Hold clopidogrel and resume heparin after hemostasis achieved in the right radial artery.
Copy to: Ever Dumas M.D., Jermaine Hager PA-C, Patrick Wynn M.D.
Angel Copeland, DO, FACC, FACP
--- NOTE | 2024-03-29 17:50 | PTCARENOTE ---
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 pt is GERARDO, SR on the monitor, HR in the 70s, O2 95% on RA, VSS. Pt offers no complaints at this time and denies CP. R radial is CDI. Pt educated on plan of care and pt verbalized understanding. call dickson within reach.
--- NOTE | 2024-03-29 18:08 | CONSULT.CT ---
Consultation
-
Date/Time Consultation Requested: 03/29
Date/Time Consultation Performed: 03/29
Requesting Provider: Dr. Copeland
Performing Provider: Bernie Walls for Dr. Stepan Fernandes
Reason for Consultation: CABG evaluation
Patient History
Physicians
Family Physician: Jermaine Hager
Outpatient Manager Background: Garfield Fleming
Inpatient Manager Background: Angel Copeland
History of Present Illness
53 year-old Right hand dominant male with known CAD and multiple stents, was admitted via the ER 03/29 with c/o chest pain for 1 week. Initially reported exertional midsternal chest pain that progressed to occasional rest pain. He admits
to NOT taking ASA 81mg daily for the last 6 months (doesn't remember to take meds) and has not been evaluated by manufacturing project manager for more than 1 year. Initial troponin 0.200. Patient received Plavix dose in the emergency room. Echocardiogram
reported a normal ejection fraction. Patient taken to the cardiac catheterization lab and found to have significant left main disease. Patient is currently resting in bed and pain-free. He is most concerned about an operation due to driving
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
TTE 03/29: EF 55-60%. Normal RV size and function. Trace MR, no TR
Cardiac Cath 03/29 (R radial by Dr. Copeland): 50-60% mid left main. Patent proximal/mid LAD stent. Patent proximal LCx stent. Patent proximal RCA stent. Successful IVUS of the hazy, 50-60% mid left main coronary artery lesion demonstrating
hemodynamically significant disease (MLA = 4.5 mm�).
Past Medical History
Past Medical History: CAD (RCA, LCx SHANA 07/2016, mid LAD SHANA 07/2017, high-grade ostial OM2 SHANA 03/2021), HTN, Hypercholesterolemia, NIDDM (takes MFM), Psychiatric (bipolar disporder) and Other (undescended testes, obesity (BMI 40))
Past Surgical History
Past Surgical History: Other (repair for undescended testes)
Social History
Alcohol: None
Drug: None
Tobacco: Former Smoker
Personal: Single
Living: Other (lives with girlfriend)
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
Allergies
Allergy/AdvReac Type Severity Reaction Status Date / Time
No Known Allergies Allergy Verified 03/29/24 13:17
Home Medications
�Medication �Instructions �Recorded �Confirmed �Type
clopidogrel 75 mg tablet 75 mg PO DAILY ##90 08/09/16 03/29/24 Rx
hydroxyzine HCl 10 mg tablet 10 mg PO HS 03/30/17 03/29/24 History
lisinopril 40 mg tablet 20 mg PO HS 03/30/17 03/29/24 History
atorvastatin 80 mg tablet 80 mg PO HS 08/21/17 03/29/24 History
metoprolol succinate 50 mg 50 mg PO HS 08/21/17 03/29/24 History
tablet,extended release 24 hr
nitroglycerin 0.4 mg sublingual 0.4 mg sublingual [id number] PRN 09/14/18 03/29/24 History
tablet chest pain
pantoprazole 40 mg tablet,delayed 40 mg PO HS 09/14/18 03/29/24 History
release
clonazepam 1 mg tablet 1 mg PO BID 04/12/21 03/29/24 History
divalproex 500 mg tablet,delayed 1,000 mg PO HS 04/12/21 03/29/24 History
release
divalproex 500 mg tablet,delayed 500 mg PO DAILY 04/12/21 03/29/24 History
release
acetaminophen 650 mg 1,300 mg PO Q8HPRN PRN mild pain 03/29/24 03/29/24 History
tablet,extended release
bupropion HCl 200 mg tablet,12 hr 200 mg PO DAILY 03/29/24 03/29/24 History
sustained-release
isosorbide mononitrate 60 mg 60 mg PO DAILY 03/29/24 03/29/24 History
tablet,extended release 24 hr
lamotrigine 100 mg tablet 100 mg PO DAILY 03/29/24 03/29/24 History
metformin 500 mg tablet 500 mg PO DAILY 03/29/24 03/29/24 History
quetiapine 400 mg tablet,extended 400 mg PO HS 03/29/24 03/29/24 History
release 24 hr
trazodone 100 mg tablet 100 mg PO HS 03/29/24 03/29/24 History
zolpidem 10 mg tablet 10 mg PO HS 03/29/24 03/29/24 History
Review of Systems
-
History Source: Patient
HEENT: Reports Visual Changes (poor night vision)
Respiratory: Reports No Symptoms
Cardiac: Reports No Symptoms
Abdomen/GI: Reports No Symptoms
: Reports No Symptoms
Musculoskeletal: Reports No Symptoms
Skin: Reports No Symptoms
Neurological: Reports No Symptoms
Vascular: Reports No Symptoms
Physical Exam
Vital Signs
Temp 97.6 F 03/29/24 17:47
Temp route: Oral 03/29/24 17:47
Pulse 72 03/29/24 16:15
Resp Rate 20 03/29/24 17:47
Blood pressure 141/89 03/29/24 14:06
Blood pressure extremity used: Left upper arm 03/29/24 17:47
Position: Lying 03/29/24 17:47
MAP (cuff-Gabrielle Monitor) 101 03/29/24 14:06
SaO2 96 03/29/24 17:47
Oxygen Mode of Delivery Room air 03/29/24 17:47
Actual Weight 124 kg 03/29/24 14:03
Body Mass Index (BMI) 40.4 03/29/24 14:03
Labs
03/29/24 14:20
03/29/24 14:20
APTT Cancelled 03/29/24 21:25
Troponin I Cancelled 03/29/24 17:00
Exam
General: No Apparent Distress and Comfortable
HEENT: Normocephalic, Moist Mucous Membranes and PERRLA
Neck: Trachea Midline
Respiratory: Clear
Cardiac: S1/S2 and Regular Rhythm
GI: Normal Bowel Sounds and Other (obese)
Rectal: Deferred by Provider
Skin: Warm and Dry
Neuro: AO x 3, No Motor Deficits and Nonfocal/Grossly Intact
Extremities: Pulses (+2/4 DP pulese B/L; right radial artery w/TR band intact)
Assessment / Plan
-
53 year old male with left main disease and patent LAD, LCx & RCA stents
- case d/w Dr. Fernandes
-last Plavix dose 03/29
- pre-op diagnostic orders placed
- need case management to follow for social determinants of health assessment
- for CABG 04/04
- hold MGM x 48h s/p cath
- hold lisinopril 24-48h prior to CABG (increased risk of vasoplegia)
- check valproic acid level
[2024-03-29 18:16] LABS: Glucose - Point of Care 171 mg/dl (70-99)
[2024-03-29 20:15] LABS: Glucose - Point of Care 183 mg/dl (70-99)
[2024-03-29] MEDS: NOVOLOG FLEXPEN-LOW RESISTANCE 1 UNITS SC (20:15)
[2024-03-29 20:30] LABS: B.E. 1.3 mmol/L; HCO3 25.9 mmol/L (21-28); O2 Saturation % 97.6 % (94-98); PCO2 40 mmHg (35-48); PO2 86 mmHg (83-108); pH 7.42 (7.35-7.45)
[2024-03-29] MEDS: KLONOPIN 1 MG PO (20:51)
[2024-03-29 21:31] LABS: INR 0.98
[2024-03-29 21:32] LABS: APTT 46.3 Sec (23.4-35.0)
[2024-03-29 21:39] LABS: ALT (SGPT) 30 U/L (0-50); AST (SGOT) 20 U/L (17-59); Albumin 3.7 g/dl (3.5-5.0); Alkaline Phosphatase 64 U/L (38-126); Direct Bilirubin 0.3 mg/dl (0.0-0.4); Total Bilirubin 0.3 mg/dl (0.2-1.3); Total Protein 6.4 g/dl (6.3-8.2)
[2024-03-29 21:42] LABS: Glucose - Point of Care 164 mg/dl (70-99)
[2024-03-29] MEDS: TOPROL XL 50 MG PO (21:52)
[2024-03-29] MEDS: LIPITOR 80 MG PO (21:52)
[2024-03-29] MEDS: ZESTRIL 20 MG PO (21:52)
[2024-03-29] MEDS: PROTONIX 40 MG PO (21:52)
[2024-03-29] MEDS: DESYREL 100 MG PO (21:52)
[2024-03-29] MEDS: DEPAKOTE (12 HR RELEASE) 1000 MG PO (21:52)
[2024-03-29] MEDS: ATARAX 10 MG PO (21:52)
--- NOTE | 2024-03-29 23:54 | PTCARENOTE ---
Heparin gtt infusing at 1000 units/hr. R radial site is c/d/i. Pt has no c/o at this time. Currently in bed; call yessi w/in reach.
[2024-03-30] VITALS (79 sets, daily range): BP systolic 71–138; BP diastolic 39–97; PULSE 67–68; O2SAT 98; BMI 40.4
[2024-03-30] MEDS: NITROSTAT (SUBLINGUAL) 0.400000000000000022 MG SL ×2 (02:43→02:50)
--- NOTE | 2024-03-30 02:59 | PTCARENOTE ---
Pt rang call dickson c/o CP 08/01. Pt reports 'it is the same pain i get every night and it eventually alleviates itself.' 2L O2 NC applied for comfort sating at 98%. Miguel REDDY aware and orders placed. 1 SL Nitro administered. BP 138/96. Pt reports
some relief rating 05/01. Additional SL Nitro administered. BP 115/83. Pt reports relief. Pt aware to use call dickson if CP returns.
[2024-03-30 05:40] LABS: % Basophils 0.4 % (0-2); % Eosinophils 1.5 % (0-6); % Immature Granulocytes 1.1 % (0-0.5); % Lymphocytes 37.2 % (20.5-51.1); % Monocytes 5.9 % (1.7-9.3); % Neutrophils 53.9 % (42.2-75.2); Absolute Eosinophils 0.1 10^3/uL (0-0.7); Absolute Immature Granulocytes 0.1 10^3/uL (0-0.05); Absolute Monocytes 0.5 10^3/uL (0.1-0.6); Absolute Neutrophils 4.4 10^3/uL (1.4-6.5); Hemoglobin 13.8 g/dL (13.0-18.0); Mean Corp Hgb Conc. 34.5 g/dL (33.0-37.0); Mean Corpuscular Hgb 29.5 pg (27.0-31.0); Mean Corpuscular Volume 85.5 fL (80.0-94.0); Nucleated Red Blood Cells % 0 % (-); Platelet Count 177 10^3/uL (130-400); Red Blood Cell Count 4.68 10^6/uL (4.70-6.10); Red Cell Dist. Width 14.1 % (11.5-14.5); White Blood Cell Count 8.2 10^3/uL (4.8-10.8)
[2024-03-30 05:50] LABS: APTT 39.8 Sec (23.4-35.0)
[2024-03-30 06:00] LABS: Blood Urea Nitrogen 11 mg/dl (9-20); Calcium 9.2 mg/dl (8.4-10.2); Carbon Dioxide 21 mmol/L (22-30); Chloride 107 mmol/L (98-107); Estimated Creatinine Clearance > 125 ml/min; Glucose 126 mg/dl (70-99); HDL Cholesterol 40 mg/dl; LDL Cholesterol, Calculated 74 mg/dl; Potassium 3.9 mmol/L (3.5-5.1); Sodium 138 mmol/L (135-145); Total Cholesterol 163 mg/dl (50-199); Triglyceride 246 mg/dl (10-149); Very Low Density Lipoprotein 49 mg/dl (0-30); eGFR > 60.00
[2024-03-30 06:09] LABS: Depakane 28.6 ug/ml (50.0-120.0)
[2024-03-30 07:24] LABS: Glucose - Point of Care 127 mg/dl (70-99)
--- NOTE | 2024-03-30 07:34 | W.PN.CD ---
Today's Communication / Plan
-
CT surgery consult.
Hold clopidogrel.
Nitro gtt.
EKG.
Pantoprazole.
Impression / Plan
-
Impression/Plan: 53 y/o male with HTN, HLD, NIDDM and prior CAD with PCI of the RCA/LCx/LAD now admitted with NSTEMI.
#NSTEMI
-Acute. Pain exacerbated overnight, relieved with SL nitro.
-Troponin peaked at 0.200.
-Cardiac catheterization shows severe LMCA disease (MLA 4.5 mm2 on IVUS). Prior SHANA to RCA, LCX, mid LAD and ostial OM2 (2020), all stable on cardiac catheterization.
-Has not been seen in the office for quite some time. There is suspicion for non-compliance.
-Continue aspirin, atorvastatin, heparin and metoprolol.
-Hold clopidogrel.
-CT surgery consult.
-Start nitro gtt and titrate for further chest pain. I am not entirely convinced that his chest pain is cardiac. His CAD is significant but difficult to assign resting pain. Possible GERD component.
-Start pantoprazole 40 mg daily.
#HTN
-Chronic, stable.
-Continue metoprolol, lisinopril.
#HLD
-Chronic.
-Total cholesterol = 163, LDL = 74, HDL = 40, Triglycerides = 246.
-Goal LDL < 55.
-Continue atorvastatin 80 mg daily.
-Start ezetimibe 10 mg daily.
-Repeat lipid panel in 3 months. He may need PCSK9i and/or icosapent ethyl.
#NIDDM
-Chronic, stable.
-HbA1c pending.
-Metformin on hold given recent cath.
-SSI per hospitalist.
-He would benefit from GLP1 analog (Diabetes + CAD + obesity).
#Anxiety
-Chronic, stable.
-Continue meds per hospitalist.
Subjective/Interval History:
Cath shows obstructive LMCA disease.
Chest pain free.
Patient had severe chest pain overnight, relieved by SL nitro x2.
Troponin peaked at 0.200, now 0.190.
DATA:
Cardiac Catheterization, 03/29/2024:
CONCLUSIONS
1. Right dominant circulation with a hemodynamically significant 58-60%, hazy mid left main coronary artery lesion, patent stents in the LAD, circumflex and OM1 and proximal RCA, all without in-stent restenosis and minor luminal irregularities.
2. Top normal to mildly elevated filling pressures (LVEDP = 16 mmHg at 123.8 kg).
3. Diabetes mellitus.
TTE, 03/29/2024:
CONCLUSIONS
LV ejection fraction is 55-60% by visual assessment. No regional wall motion
abnormalities are seen.
Normal right ventricular size and function.
No significant valvular disease.
No significant change since the prior study of 12/26/2019.
Physical Exam
Vital Signs/Labs
Vital Signs
Temp Pulse Resp BP Pulse Ox
36.6 C 71 18 92/69 98
03/30/24 03:07 03/30/24 03:00 03/30/24 03:07 03/30/24 03:00 03/30/24 03:07
03/28/24 03/29/24 03/30/24
11:59 11:59 11:59
Actual Weight 124 kg
03/30/24 05:31
03/30/24 05:31
PT 13.0 Sec (11.4-14.6) 03/29/24 21:06
INR 0.98 03/29/24 21:06
APTT 39.8 Sec (23.4-35.0) H 03/30/24 05:31
Magnesium 1.8 mg/dl (1.6-2.3) 03/29/24 14:20
Triglycerides 246 mg/dl (10-149) H 03/30/24 05:31
LDL Cholesterol, Calc 74 mg/dl 03/30/24 05:31
VLDL Cholesterol, Calc 49 mg/dl (0-30) H 03/30/24 05:31
HDL Cholesterol 40 mg/dl 03/30/24 05:31
LAB Results
03/29/24 03/29/24 03/30/24
14:20 17:00 05:31
Troponin I 0.200 H* Cancelled 0.190 H*
Physical Exam
Constitutional: No acute distress and Comfortable
EENT: Anicteric and Moist mucous membranes
Cardiovascular: Rhythm & rate is regular, Pedal edema is absent, JVD pressure is normal, S1S2 is normal and Murmur/rub/gallop absent
Respiratory: Respiratory effort normal, Lungs clear to auscul., Wheeze Absent, Crackles Absent and Rhonchi Absent
GI: Soft, Distention absent, Flat, Non tender and Normal bowel sounds
Neuro/Psych: AO x 3
Other: Cath Site (Right radial access site is C/D/I.)
Data Reviewed
-
Date of Service: March 30, 2024
Medical Decision Making: Reviewed Test Results, Independent Historian Assessment, Test Interpretation and Review of Case with other Provider
EKG: Tracing Personally Visualized and interpreted and Report Reviewed by me
Echo: Tracing Personally Visualized and interpreted and Report Reviewed by me
X-Ray/CT/US/MRI/NUC/PET: Image Personally Visualized and interpreted and Report Reviewed by me
Medical Tests (PFT, Pathology etc): Image Personally Visualized and interpreted, Report Reviewed by me, Discussed with Physician, Discussed with Nurse and Discussed with Patient
Labs: Labs Reviewed by me
Old Records: Reviewed
[2024-03-30] MEDS: NITROGLYCERIN PREMIX 250 IV (08:04)
[2024-03-30] MEDS: NOVOLOG FLEXPEN-LOW RESISTANCE SC ×2 (08:22→18:19)
[2024-03-30] MEDS: LAMICTAL 100 MG PO (08:22)
[2024-03-30] MEDS: KLONOPIN 1 MG PO ×2 (08:23→19:22)
[2024-03-30] MEDS: IMDUR (EXTENDED RELEASE) 60 MG PO (08:23)
[2024-03-30] MEDS: DEPAKOTE (12 HR RELEASE) 500 MG PO (08:23)
[2024-03-30] MEDS: WELLBUTRIN SR (12 hour sustained release) 200 MG PO (08:23)
--- NOTE | 2024-03-30 09:13 | PTCARENOTE ---
received pt at change of shift, pt c/o 11/[address] stack, nitro gtt ordered and hung per order see MAR. Pt is SR on the monitor, HR in the 70s, vss. pt is resting in bed comfortably. pt educated on plan of care. call dickson within reach.
[2024-03-30 09:41] LABS: Glycohemoglobin (HgbA1c) 7.4 % (4.0-5.6)
[2024-03-30] MEDS: PROTONIX IV 40 MG IV (10:41)
[2024-03-30] MEDS: NSS (PRESERVATIVE FREE) 10 ML IV (10:42)
[2024-03-30 11:49] LABS: Glucose - Point of Care 152 mg/dl (70-99)
[2024-03-30] MEDS: NOVOLOG FLEXPEN-LOW RESISTANCE 1 UNITS SC (12:13)
[2024-03-30 12:30] LABS: APTT 42.8 Sec (23.4-35.0)
--- NOTE | 2024-03-30 12:45 | PTOTSP ---
educated pt regarding sternal precautions and impact on ADLs. pt verbalized understanding. pt demonstrates ability to complete simple ADLs, functional transfers, ambulation with no assistance. no acute OT needs identified at this time, will sign
off.
[2024-03-30] MEDS: LR 500 IV (12:53)
--- NOTE | 2024-03-30 16:02 | W.PN.HOSP.TC ---
Today's Communication/Plan
-
CT surg consult
nitro ggt
ppi iv
ezetimibe
Assessment / Plan
Assessment / Plan
Physical Exam
General: Conversant, Pain (11/01) and Morbidly Obese; No Chills
HEENT: NormoCephalic, Anicteric, Moist mucous membranes, PERRLA, [place] Conjunctivae and No Ptosis
Respiratory: Clear; No Wheezes, Rales or Rhonchi
Cardiac: S1/S2 and Regular Rhythm; No Murmur, Rub, Gallop or Peripheral Edema
Breast: Deferred by me
GI: Soft, Non Tender, Non Distended, Normal Bowel Sounds and No Hepatosplenomegaly
Genito-urinary: Deferred by me
Musculoskeletal: No Clubbing, No Cyanosis and No Edema
Skin: Warm and Dry; No Rash
Neuro: AO x 3, No Motor Deficits, Nonfocal/grossly intact, Cranial Nerves Intact and No Sensory Deficits; No Slurred Speech, Facial Droop or Tremors
Psych: Calm
#Unstable angina
#NSTEMI
#CAD�PTCA/stent circumflex, RCA 08/08/2016, stent OM 11/28/2020
#ACS
� Cardiac catheterization showing severe LMCA disease
�Hold clopidogrel
� CT surgery consult
� Nitro drip
� EKG
� Continue aspirin, statin, heparin, metoprolol
� Suspicion for noncompliance
- EF 55 -60 %
#Nonspecific chest pain
� Possibly secondary to cardiac disease although there is possibility of acid reflux
� Initiate PPI IV
#HTN�benign
-Continue lisinopril 20 mg at bedtime, Imdur 60 mg daily, metoprolol succinate 50 mg at bedtime with hold parameters
#DM2 with hyperglycemia
BS 205
Accu-Cheks with SSI, check HgbA1c - 7.4
-Hold metformin 500 mg daily
#GERD
-Continue Protonix 40 mg at bedtime
#HLD
-statin
-Start Ezetimibe
-would benefit from GLP-1
#Bipolar disorder
-Continue , trazodone 100 mg at bedtime, Depakote 500 mg a.m., 1000 g at bedtime, Wellbutrin 20 mg daily
-Continue clonazepam 1 mg twice daily
-Pt stopped Seroquel 400 mg at bedtime/, Ambien 10 mg at bedtime 2 weeks ago due to feeling off and walking into bill
#Insomnia
-Continue hydroxyzine 10 mg at bedtime
Pt stopped , Ambien 10 mg at bedtime 2 weeks ago
#Obesity due to excess calorie consumption�BMI 40.4 kg
Affects all aspects of care
-Weight loss recommended, low-fat diet
DVT prophylaxis
-Continue IV heparin drip
Full code
Anticipated Discharge: > 48 hours
Subjective/Interval History
-
Date of Service: March 30, 2024
Still has some chest pain, cardiac cath with significant LMCA disease
Objective Data
-
Labs:
Laboratory Results
03/30/24 03/30/24 03/30/24
05:31 12:07 19:00
WBC 8.2
Hgb 13.8
Hct 40.0
Plt Count 177
APTT 39.8 H 42.8 H Pending
Sodium 138
Potassium 3.9
Chloride 107
Carbon Dioxide 21 L
BUN 11
Creatinine 0.7
Glucose 126 H
Calcium 9.2
Vital Signs:
Vital Signs
Temp Pulse Resp BP Pulse Ox
97.7 F 77 18 85/49 96
03/30/24 15:31 03/30/24 15:31 03/30/24 15:31 03/30/24 14:00 03/30/24 15:31
I&O
03/29/24 03/30/2424
06:59 06:59 06:59
Intake Total 680 / 680 480 / 480
Output Total
Balance 679 / 679 480 / 480
Review of Systems
-
History Source: Patient
All other systems: Not reviewed unless documented
Data Reviewed
-
Diagnostic Radiology: Image personally visualized and interpreted and Report Reviewed by me
CT Scan: Image personally visualized and interpreted and Report Reviewed by me
Medical Tests (Nuc Med, Echo etc): Image personally visualized and interpreted and Report Reviewed by me
Labs: Labs Reviewed by me
[2024-03-30 17:48] LABS: Glucose - Point of Care 134 mg/dl (70-99)
--- NOTE | 2024-03-30 18:36 | PTCARENOTE ---
pt has been sr on the monitor, hr in the 70s, vss. pt denies CP at this time. Nitro gtt weaned off per dr. santillan due to low BPs. heparin gtt running per protocol, see documentation. pt educated on plan of care for the evening and pt verbalized
understanding. call dickson within reach.
[2024-03-30] MEDS: HEPARIN 25000 UNITS/250 ML IV (19:17)
[2024-03-30 19:26] LABS: APTT 57.4 Sec (23.4-35.0)
--- NOTE | 2024-03-30 20:30 | PTCARENOTE ---
Received pt at handoff. Heparin gtt infusing at 16 ml/hr. Pt currently reports no CP. Assessment noted as documented. Tele-SR. HR 60-70s. Ambulatory in room w/ standby assist. R radial site is c/d/i w/ ecchymosis. Currently in bed; call yessi w/in
reach.
[2024-03-30 21:34] LABS: Glucose - Point of Care 131 mg/dl (70-99)
[2024-03-30] MEDS: ATARAX 10 MG PO (22:18)
[2024-03-30] MEDS: DESYREL 100 MG PO (22:18)
[2024-03-30] MEDS: TOPROL XL 50 MG PO (22:18)
[2024-03-30] MEDS: LIPITOR 80 MG PO (22:18)
[2024-03-30] MEDS: DEPAKOTE (12 HR RELEASE) 1000 MG PO (22:18)
[2024-03-31] VITALS (7 sets, daily range): BP systolic 91–124; BP diastolic 58–84; BMI 37.1
--- NOTE | 2024-03-31 00:50 | W.PN.CT ---
Addendum entered and electronically signed by Stepan Fernandes MD 03/31/24 09:08:
I saw and examined the patient.
The PA's note was reviewed and I agree with the note.
Comment:
No episodes of CP - OFF NTG, continue heparin
OR timing pending - tentatively OR post plavix washout
Original Note:
Today's Communication / Plan
-
Plan:
-No chest pain overnight
-NTG gtt d/c'd d/t hypotension. Off note pt noted to be on isosorbide mononitrate
-Plavix washout
-Ongoing CT Surgery evaluation
-For CABG by Dr. Fernandes likely 04/04
-Will cont. to closely monitor
Assessment / Plan
-
Assessment:
-CAD including 50-60% mid LM
-NSTEMI (peak trop 0.20)
-Unstable Angina
-Hx CAD S/P PCI with SHANA to RCA and LCx 07/2016; mid LAD 07/2017; high-grade ostial OM2 03/2021 (all patent per cath 03/29)
-Plavix washout, last dose 03/29
-LVEF 55-60%
-No significant valvular disease
-HTN
-HLD
-T2DM (A1C 7.4)
-Class 3 obesity (BMI 40.4)
-Probable COLETTE
-Bipolar disorder
-Anxiety disorder
-S/P Repair of undescended testes
Discussed patient care with: Cardiology, Nursing, Respiratory Therapy, Pharmacy and Care Team
Subjective
-
Date of Service: March 31, 2024
No issues overnight. Denies CP/SOB
Objective Data
-
PT 13.0 Sec (11.4-14.6) 03/29/24 21:06
INR 0.98 06/07/24 21:06
APTT 57.4 Sec (23.4-35.0) H 03/30/24 19:03
Vital Signs
Vital Signs
Temp Pulse Resp BP Pulse Ox
98.4 F 76 16 107/78 95
03/30/24 22:15 03/30/24 22:18 03/30/24 22:15 03/30/24 22:18 03/30/24 22:15
CT Intake/Output/Weight
03/30/24 03/30/24 03/31/24
06:59 18:59 06:59
Intake Total 200 / 680 480 / 480
Output Total
Balance 199 / 679 480 / 480
SaO2: 95 (RA)
Physical Exam
-
General: Awake, Oriented and AOx3
Cardiovascular: Regular rate & rhythm (sinus bradycardia) and No Murmurs
Extremities: No Edema
Data Reviewed
-
Lab Results: Results Reviewed
Medications: Active Meds Reviewed
Chest X-Ray: Report Reviewed and Image Reviewed
ECG: Report Reviewed and Image Reviewed
[2024-03-31 02:13] LABS: Hematocrit 38.2 % (39.0-52.0); Hemoglobin 12.9 g/dL (13.0-18.0); Mean Corp Hgb Conc. 33.8 g/dL (33.0-37.0); Mean Corpuscular Hgb 29.8 pg (27.0-31.0); Mean Corpuscular Volume 88.2 fL (80.0-94.0); Mean Platelet Volume 9.6 fL (7.4-10.4); Platelet Count 150 10^3/uL (130-400); Red Blood Cell Count 4.33 10^6/uL (4.70-6.10); Red Cell Dist. Width 14.1 % (11.5-14.5); White Blood Cell Count 8.4 10^3/uL (4.8-10.8)
[2024-03-31 02:26] LABS: APTT 83.1 Sec (23.4-35.0)
[2024-03-31 02:47] LABS: Blood Urea Nitrogen 12 mg/dl (9-20); Calcium 9.7 mg/dl (8.4-10.2); Carbon Dioxide 24 mmol/L (22-30); Chloride 104 mmol/L (98-107); Estimated Creatinine Clearance > 125 ml/min; Glucose 150 mg/dl (70-99); Magnesium 1.8 mg/dl (1.6-2.3); Potassium 4.4 mmol/L (3.5-5.1); Sodium 135 mmol/L (135-145); eGFR > 60.00
--- NOTE | 2024-03-31 08:23 | W.PN.CD ---
Today's Communication / Plan
-
Clopidogrel washout.
CABG this week.
Impression / Plan
-
Impression/Plan: 53 y/o male with HTN, HLD, NIDDM and prior CAD with PCI of the RCA/LCx/LAD now admitted with NSTEMI.
#NSTEMI
-Acute. Pain exacerbated overnight, relieved with SL nitro.
-Troponin peaked at 0.200.
-Cardiac catheterization shows severe LMCA disease (MLA 4.5 mm2 on IVUS). Prior SHANA to RCA, LCX, mid LAD and ostial OM2 (2020), all stable on cardiac catheterization.
-Has not been seen in the office for quite some time. There is suspicion for non-compliance.
-Continue aspirin, atorvastatin, heparin and metoprolol.
-Clopidogrel washout.
-CT surgery consulted. CABG this week.
#HTN
-Chronic, stable.
-Continue metoprolol, lisinopril.
#HLD
-Chronic.
-Total cholesterol = 163, LDL = 74, HDL = 40, Triglycerides = 246.
-Goal LDL < 55.
-Continue atorvastatin 80 mg daily.
-Start ezetimibe 10 mg daily.
-Repeat lipid panel in 3 months. He may need PCSK9i and/or icosapent ethyl.
#GERD
-New diagnosis.
-Chest pain resolved with addition of PPI.
-Maintain pantoprazole at this time. Transition to famotidine as an outpatient.
#NIDDM
-Chronic, stable.
-HbA1c pending.
-Metformin on hold given recent cath.
-SSI per hospitalist.
-He would benefit from GLP1 analog (Diabetes + CAD + obesity).
#Anxiety
-Chronic, stable.
-Continue meds per hospitalist.
Subjective/Interval History:
Nitro gtt discontinued due to hypotension.
PPI added yesterday.
Patient is now chest pain free.
PFT's show normal pulmonary function.
DATA:
Cardiac Catheterization, 03/29/2024:
CONCLUSIONS
1. Right dominant circulation with a hemodynamically significant 58-60%, hazy mid left main coronary artery lesion, patent stents in the LAD, circumflex and OM1 and proximal RCA, all without in-stent restenosis and minor luminal irregularities.
2. Top normal to mildly elevated filling pressures (LVEDP = 16 mmHg at 123.8 kg).
3. Diabetes mellitus.
TTE, 03/29/2024:
CONCLUSIONS
LV ejection fraction is 55-60% by visual assessment. No regional wall motion
abnormalities are seen.
Normal right ventricular size and function.
No significant valvular disease.
No significant change since the prior study of 12/26/2019.
Physical Exam
Vital Signs/Labs
Vital Signs
Temp Pulse Resp BP Pulse Ox
36.5 C 90 18 100/72 95
03/31/24 01:55 03/31/24 02:00 03/31/24 01:55 03/31/24 01:55 03/31/24 06:50
03/29/24 03/30/24 03/31/24
11:59 11:59 11:59
Actual Weight 124 kg 114 kg
03/31/24 02:00
03/31/24 02:00
PT 13.0 Sec (11.4-14.6) 03/29/24 21:06
INR 0.98 03/29/24 21:06
APTT 83.1 Sec (23.4-35.0) H 03/31/24 02:00
Magnesium 1.8 mg/dl (1.6-2.3) 03/31/24 02:00
Triglycerides 246 mg/dl (10-149) H 03/30/24 05:31
LDL Cholesterol, Calc 74 mg/dl 03/30/24 05:31
VLDL Cholesterol, Calc 49 mg/dl (0-30) H 03/30/24 05:31
HDL Cholesterol 40 mg/dl 03/30/24 05:31
LAB Results
03/29/24 03/29/24 03/30/24
14:20 17:00 05:31
Troponin I 0.200 H* Cancelled 0.190 H*
Physical Exam
Constitutional: No acute distress and Comfortable
EENT: Anicteric and Moist mucous membranes
Cardiovascular: Rhythm & rate is regular, Pedal edema is absent, JVD pressure is normal, S1S2 is normal and Murmur/rub/gallop absent
Respiratory: Respiratory effort normal, Lungs clear to auscul., Wheeze Absent, Crackles Absent and Rhonchi Absent
GI: Soft, Distention absent, Flat, Non tender and Normal bowel sounds
Neuro/Psych: AO x 3
Other: Cath Site (Right radial access site C/D/I.)
Data Reviewed
-
Date of Service: March 31, 2024
Medical Decision Making: Reviewed Test Results, Independent Historian Assessment, Test Interpretation and Review of Case with other Provider
EKG: Tracing Personally Visualized and interpreted and Report Reviewed by me
Echo: Tracing Personally Visualized and interpreted and Report Reviewed by me
X-Ray/CT/US/MRI/NUC/PET: Image Personally Visualized and interpreted and Report Reviewed by me
Medical Tests (PFT, Pathology etc): Image Personally Visualized and interpreted and Report Reviewed by me
Labs: Labs Reviewed by me
Old Records: Reviewed
[2024-03-31] MEDS: IMDUR (EXTENDED RELEASE) 60 MG PO (08:39)
[2024-03-31] MEDS: WELLBUTRIN SR (12 hour sustained release) 200 MG PO (08:39)
[2024-03-31] MEDS: PROTONIX IV 40 MG IV (08:40)
[2024-03-31] MEDS: KLONOPIN 1 MG PO ×2 (08:40→20:20)
[2024-03-31] MEDS: LAMICTAL 100 MG PO (08:40)
[2024-03-31] MEDS: NSS (PRESERVATIVE FREE) 10 ML IV (08:40)
[2024-03-31] MEDS: DEPAKOTE (12 HR RELEASE) 500 MG PO (08:40)
[2024-03-31 08:43] LABS: Glucose - Point of Care 115 mg/dl (70-99)
[2024-03-31 09:01] LABS: APTT 104.7 Sec (23.4-35.0)
[2024-03-31] MEDS: NOVOLOG FLEXPEN-LOW RESISTANCE SC ×3 (09:27→17:42)
[2024-03-31] MEDS: HEPARIN 25000 UNITS/250 ML IV (10:51)
--- NOTE | 2024-03-31 12:42 | PTCARENOTE ---
pt continues to be SR on the monitor, hr in the 60s, vss. pt offers no complaints at this time. heparin gtt running per protocol, see documentation. pt is resting in bed comfortably. pt educated on plan of care and pt verbalized understanding. call
dickson within reach.
[2024-03-31 13:51] LABS: Glucose - Point of Care 143 mg/dl (70-99)
--- NOTE | 2024-03-31 14:35 | W.PN.HOSP.TC ---
Today's Communication/Plan
-
plavix washout
cabg this week
Assessment / Plan
Assessment / Plan
Physical Exam
General: Conversant, Pain (11/01) and Morbidly Obese; No Chills
HEENT: NormoCephalic, Anicteric, Moist mucous membranes, PERRLA, [place] Conjunctivae and No Ptosis
Respiratory: Clear; No Wheezes, Rales or Rhonchi
Cardiac: S1/S2 and Regular Rhythm; No Murmur, Rub, Gallop or Peripheral Edema
Breast: Deferred by me
GI: Soft, Non Tender, Non Distended, Normal Bowel Sounds and No Hepatosplenomegaly
Genito-urinary: Deferred by me
Musculoskeletal: No Clubbing, No Cyanosis and No Edema
Skin: Warm and Dry; No Rash
Neuro: AO x 3, No Motor Deficits, Nonfocal/grossly intact, Cranial Nerves Intact and No Sensory Deficits; No Slurred Speech, Facial Droop or Tremors
Psych: Calm
#Unstable angina
#NSTEMI
#CAD�PTCA/stent circumflex, RCA 08/08/2016, stent OM 11/28/2020
#ACS
� Cardiac catheterization showing severe LMCA disease
�Hold clopidogrel for washout
� CT surgery consult - plan for CABG
� DC Nitro drip
� EKG
� Continue aspirin, statin, heparin, metoprolol
� Suspicion for noncompliance
- EF 55 -60 %
#Nonspecific chest pain
� Possibly secondary to cardiac disease although there is possibility of acid reflux
� Initiate PPI IV
#HTN�benign
-Continue lisinopril 20 mg at bedtime, Imdur 60 mg daily, metoprolol succinate 50 mg at bedtime with hold parameters
#DM2 with hyperglycemia
BS 205
Accu-Cheks with SSI, check HgbA1c - 7.4
-Hold metformin 500 mg daily
#GERD
-Continue Protonix 40 mg at bedtime
#HLD
-statin
-Start Ezetimibe
-would benefit from GLP-1
#Bipolar disorder
-Continue , trazodone 100 mg at bedtime, Depakote 500 mg a.m., 1000 g at bedtime, Wellbutrin 20 mg daily
-Continue clonazepam 1 mg twice daily
-Pt stopped Seroquel 400 mg at bedtime/, Ambien 10 mg at bedtime 2 weeks ago due to feeling off and walking into bill
#Insomnia
-Continue hydroxyzine 10 mg at bedtime
Pt stopped , Ambien 10 mg at bedtime 2 weeks ago
#Obesity due to excess calorie consumption�BMI 40.4 kg
Affects all aspects of care
-Weight loss recommended, low-fat diet
DVT prophylaxis
-Continue IV heparin drip
Full code
Anticipated Discharge: > 48 hours
Subjective/Interval History
-
Date of Service: March 31, 2024
no acute events
Objective Data
-
Labs:
Laboratory Results
03/31/24 03/31/24
02:00 08:41
APTT 104.7 H
Sodium 135
Potassium 4.4
Chloride 104
Carbon Dioxide 24
BUN 12
Creatinine 0.8
Glucose 150 H
Calcium 9.7
Vital Signs:
Vital Signs
Temp Pulse Resp BP Pulse Ox
98.2 F 65 20 91/58 93
03/31/24 11:26 03/31/24 13:30 03/31/24 11:26 03/31/24 11:30 03/31/24 11:26
I&O
03/30/24 03/31/24 04/01/24
06:59 06:59 06:59
Intake Total 680 / 680 720 / 720 480 / 480
Output Total
Balance 679 / 679 720 / 720 480 / 480
Review of Systems
-
History Source: Patient
All other systems: Not reviewed unless documented
Data Reviewed
-
Diagnostic Radiology: Image personally visualized and interpreted and Report Reviewed by me
CT Scan: Image personally visualized and interpreted and Report Reviewed by me
Medical Tests (Nuc Med, Echo etc): Image personally visualized and interpreted and Report Reviewed by me
Labs: Labs Reviewed by me
[2024-03-31 17:31] LABS: Glucose - Point of Care 135 mg/dl (70-99)
[2024-03-31 21:29] LABS: Glucose - Point of Care 130 mg/dl (70-99)
[2024-03-31] MEDS: LIPITOR 80 MG PO (22:14)
[2024-03-31] MEDS: DESYREL 100 MG PO (22:14)
[2024-03-31] MEDS: TOPROL XL 50 MG PO (22:14)
[2024-03-31] MEDS: DEPAKOTE (12 HR RELEASE) 1000 MG PO (22:14)
[2024-03-31] MEDS: ATARAX 10 MG PO (22:14)
[2024-04-01] VITALS (10 sets, daily range): BP systolic 90–130; BP diastolic 44–87; BMI 36.7
[2024-04-01] MEDS: HEPARIN 25000 UNITS/250 ML IV ×2 (02:19→17:46)
--- NOTE | 2024-04-01 04:19 | W.PN.CT ---
Addendum entered and electronically signed by Stepan Fernandes MD 04/01/24 16:23:
I saw and examined the patient.
The PA's note was reviewed and I agree with the note.
Comment:
Planning for OR on MONDAY
Pt. w/ significant social apprehension regarding loss of apartment, car, etc. given recovery time required postoperatively
Pt. speaking with creditors....offered to assist in any way possible as surgery represents the best medial option for this patient
Original Note:
Today's Communication / Plan
-
Plan:
-No chest pain overnight
-NTG gtt d/c'd 03/30/24 d/t hypotension. Off note, on isosorbide mononitrate
-Plavix washout
-Ongoing CT Surgery evaluation
-For CABG by Dr. Fernandes likely 04/04
-Will cont. to closely monitor
Assessment / Plan
-
Assessment:
-CAD including 50-60% mid LM
-NSTEMI (peak trop 0.20)
-Unstable Angina
-Hx CAD S/P PCI with SHANA to RCA and LCx 07/2016; mid LAD 07/2017; high-grade ostial OM2 03/2021 (all patent per cath 03/29)
-Plavix washout, last dose 03/29
-LVEF 55-60%
-No significant valvular disease
-HTN
-HLD
-T2DM (A1C 7.4)
-Class 3 obesity (BMI 40.4)
-Probable COLETTE
-Bipolar disorder
-Anxiety disorder
-S/P Repair of undescended testes
Discussed patient care with: Cardiology, Nursing, Pharmacy and Care Team
Subjective
-
Date of Service: April 01, 2024
No issues overnight. Denies CP/SOB
Objective Data
-
PT 13.0 Sec (11.4-14.6) 03/29/24 21:06
INR 0.98 03/29/24 21:06
APTT 104.7 Sec (23.4-35.0) H 03/31/24 08:41
Vital Signs
Vital Signs
Temp Pulse Resp BP Pulse Ox
97.7 F 65 20 101/72 96
04/01/24 02:22 04/01/24 02:30 04/01/24 02:22 04/01/24 02:22 04/01/24 02:22
CT Intake/Output/Weight
03/31/24 03/31/24 04/01/24
06:59 18:59 06:59
Intake Total 240 / 720 480 / 480
Balance 240 / 720 480 / 480
SaO2: 96 (RA)
Physical Exam
-
General: Awake, Oriented and AOx3
Cardiovascular: Regular rate & rhythm, No Murmurs, No Rub and No Gallop
Respiratory: Clear
Extremities: No Edema
Data Reviewed
-
Lab Results: Results Reviewed
Medications: Active Meds Reviewed
Chest X-Ray: Report Reviewed and Image Reviewed
ECG: Report Reviewed and Image Reviewed
[2024-04-01 05:52] LABS: Hematocrit 39.2 % (39.0-52.0); Hemoglobin 13.3 g/dL (13.0-18.0); Mean Corp Hgb Conc. 33.9 g/dL (33.0-37.0); Mean Corpuscular Hgb 29.8 pg (27.0-31.0); Mean Corpuscular Volume 87.7 fL (80.0-94.0); Mean Platelet Volume 9.4 fL (7.4-10.4); Platelet Count 146 10^3/uL (130-400); Red Blood Cell Count 4.47 10^6/uL (4.70-6.10); Red Cell Dist. Width 13.9 % (11.5-14.5); White Blood Cell Count 8.9 10^3/uL (4.8-10.8)
[2024-04-01 06:04] LABS: APTT 84.7 Sec (23.4-35.0)
[2024-04-01 06:18] LABS: Blood Urea Nitrogen 13 mg/dl (9-20); Calcium 9.8 mg/dl (8.4-10.2); Carbon Dioxide 24 mmol/L (22-30); Chloride 102 mmol/L (98-107); Estimated Creatinine Clearance 118 ml/min; Glucose 132 mg/dl (70-99); Potassium 3.8 mmol/L (3.5-5.1); Sodium 136 mmol/L (135-145); eGFR > 60.00
[2024-04-01] MEDS: NOVOLOG FLEXPEN-LOW RESISTANCE SC ×2 (07:05→17:47)
[2024-04-01 07:07] LABS: Glucose - Point of Care 132 mg/dl (70-99)
--- NOTE | 2024-04-01 08:51 | W.PN.HOSP.TC ---
Today's Communication/Plan
-
see A/P
Assessment / Plan
Assessment / Plan
Physical Exam
General: Conversant, Morbidly Obese; No Chills
HEENT: NormoCephalic, Anicteric, Moist mucous membranes, PERRLA, [place] Conjunctivae and No Ptosis
Respiratory: Clear; No Wheezes, Rales or Rhonchi
Cardiac: S1/S2 and Regular Rhythm; No Murmur, Rub, Gallop or Peripheral Edema
Breast: Deferred by me
GI: Soft, Non Tender, Non Distended, Normal Bowel Sounds and No Hepatosplenomegaly
Genito-urinary: Deferred by me
Musculoskeletal: No Clubbing, No Cyanosis and No Edema
Skin: Warm and Dry; No Rash
Neuro: AO x 3, No Motor Deficits, Nonfocal/grossly intact, Cranial Nerves Intact and No Sensory Deficits; No Slurred Speech, Facial Droop or Tremors
Psych: Calm
A/P:
# ACS/unstable angina with NSTEMI
# CAD�PTCA/stent circumflex, RCA 08/08/2016, stent OM 11/28/2020
Cardiac catheterization 03/29/24 showed severe left main coronary artery lesion, patent stents in the LAD, circumflex and OM1 and proximal RCA, all without in-stent restenosis and minor luminal irregularities.
Off nitro drip due to hypotension.
Cont isosorbide mononitrate, aspirin, statin, heparin drip, metoprolol
EF 55 -60 %
For CABG by Dr. Fernandes likely 04/04 after Plavix washout
# Nonspecific chest pain
Possibly secondary to cardiac disease although there is possibility of acid reflux
Initiated PPI IV
# HTN�benign
Cont Imdur 60 mg daily, metoprolol succinate 50 mg with hold parameters
lisinopril on hold
# DM2 with hyperglycemia
Accu-Cheks with SSI,
HgbA1c 7.4 %
Hold metformin 500 mg daily
# GERD
Continue Protonix 40 mg at bedtime
# HLD
statin
Start Ezetimibe
would benefit from GLP-1
# Bipolar disorder
Continue trazodone 100 mg at bedtime, Depakote 500 mg a.m., 1000 g at bedtime, Wellbutrin 200 mg daily
Continue clonazepam 1 mg twice daily
Pt stopped Seroquel 400 mg at bedtime, Ambien 10 mg at bedtime 2 weeks ago due to feeling off and walking into bill
# Insomnia
Continue hydroxyzine 10 mg at bedtime
Pt stopped Ambien 10 mg at bedtime 2 weeks ago
# Obesity due to excess calorie consumption
BMI 40.4 kg
Affects all aspects of care
Weight loss recommended, low-fat diet
DVT prophylaxis: Continue IV heparin drip
Full code
Anticipated Discharge: > 48 hours
Subjective/Interval History
-
Date of Service: April 01, 2024
Objective Data
-
Labs:
Laboratory Results
04/01/24
05:34
WBC 8.9
Hgb 13.3
Hct 39.2
Plt Count 146
APTT 84.7 H
Sodium 136
Potassium 3.8
Chloride 102
Carbon Dioxide 24
BUN 13
Creatinine 0.9
Glucose 132 H
Calcium 9.8
Vital Signs:
Vital Signs
Temp Pulse Resp BP Pulse Ox
36.8 C 66 18 101/72 96
04/01/24 07:03 04/01/24 07:03 04/01/24 07:03 04/01/24 02:22 04/01/24 07:03
I&O
03/31/24 04/01/24 04/02/24
06:59 06:59 06:59
Intake Total 720 / 720 480 / 480
Balance 720 / 720 480 / 480
Review of Systems
-
All other systems: Reviewed and negative
Data Reviewed
-
Labs: Labs Reviewed by me
[2024-04-01 09:10] LABS: ACT-LR - POC > 397 Seconds (116-155)
[2024-04-01] MEDS: WELLBUTRIN SR (12 hour sustained release) 200 MG PO (09:16)
[2024-04-01] MEDS: PROTONIX IV 40 MG IV (09:17)
[2024-04-01] MEDS: FLUSH (NSS) 3 FLUSH IV (09:17)
[2024-04-01] MEDS: KLONOPIN 1 MG PO ×2 (09:17→19:33)
[2024-04-01] MEDS: NSS (PRESERVATIVE FREE) 10 ML IV (09:17)
[2024-04-01] MEDS: LAMICTAL 100 MG PO (09:17)
[2024-04-01] MEDS: IMDUR (EXTENDED RELEASE) 60 MG PO (09:17)
[2024-04-01] MEDS: DEPAKOTE (12 HR RELEASE) 500 MG PO (09:18)
--- NOTE | 2024-04-01 09:35 | PTCARENOTE ---
The patient is aaxo3, vital signs are stable. NSR noted on the monitor. He has no complaints of chest pain or SOB. His Heparin gtt is running at 1600 units/hr. His right wrist cath site is c/d/i. He is ambulatory in his room.
[2024-04-01 12:25] LABS: Glucose - Point of Care 159 mg/dl (70-99)
--- NOTE | 2024-04-01 12:47 | W.PN.UPDATE ---
Update Note
Progress Note Update
STS RISK SCORE
Procedure Type:�Isolated CABG
PERIOPERATIVE OUTCOME ESTIMATE %
Operative Mortality 0.782%
Morbidity & Mortality 5.1%
Stroke 0.555%
Renal Failure 0.535%
Reoperation 1.46%
Prolonged Ventilation 2.98%
Deep Sternal Wound Infection 0.32%
Long Hospital Stay (>14 days) 2.29%
Short Hospital Stay (<6 days)* 63.3%
Clinical Summary
Planned Surgery: Isolated CABG, Urgent, First cardiovascular surgery
Demographics: 53 year old, White, male, 124kg, 175cm, BMI: 40.5 kg/m�
Lab Values: Creatinine: 0.7 mg/dL, Hematocrit: 40%, WBC Count: 8.2 10�/�L, Platelet Count: 724068 cells/�L
PreOp Medications: Oral diabetes control
Substance Abuse: Former smoker
Risk Factors / Comorbidities: Diabetes Mellitus
Cardiac Status: NYHA Class III, Ejection Fraction = 60%
Coronary Artery Disease: 3 vessels diseased, Left Main Stenosis >=50%, Non-ST Elevation OR, OR: 1 to 7 Days
Valve Disease: Trivial/Trace MR
Prev. Cardiac Interv: Previous PCI: Not at this facility
[2024-04-01] MEDS: NOVOLOG FLEXPEN-LOW RESISTANCE 1 UNITS SC (13:05)
--- NOTE | 2024-04-01 14:10 | W.PN.CD ---
Today's Communication / Plan
-
Clopidogrel washout.
CABG (04/04/2024).
Impression / Plan
-
Impression/Plan: 53 y/o male with HTN, HLD, NIDDM and prior CAD with PCI of the RCA/LCx/LAD now admitted with NSTEMI.
#NSTEMI
-Acute. Pain exacerbated overnight, relieved with SL nitro.
-Troponin peaked at 0.200.
-Cardiac catheterization shows severe LMCA disease (MLA 4.5 mm2 on IVUS). Prior SHANA to RCA, LCX, mid LAD and ostial OM2 (2020), all stable on cardiac catheterization.
-Has not been seen in the office for quite some time. There is suspicion for non-compliance.
-Continue aspirin, atorvastatin, heparin and metoprolol.
-Clopidogrel washout.
-CT surgery consulted. CABG anticipated on 04/04/2024 (Dr. Fernandes).
#HTN
-Chronic, stable.
-Continue metoprolol.
-Lisinopril on hold for relative hypotension.
#HLD
-Chronic.
-Total cholesterol = 163, LDL = 74, HDL = 40, Triglycerides = 246.
-Goal LDL < 55.
-Continue atorvastatin 80 mg daily.
-Start ezetimibe 10 mg daily.
-Repeat lipid panel in 3 months. He may need PCSK9i and/or icosapent ethyl.
#GERD
-New diagnosis.
-Chest pain resolved with addition of PPI.
-Maintain pantoprazole at this time. Transition to famotidine as an outpatient.
#NIDDM
-Chronic, stable.
-HbA1c pending.
-Metformin on hold given recent cath.
-SSI per hospitalist.
-He would benefit from GLP1 analog (Diabetes + CAD + obesity).
#Anxiety
-Chronic, stable.
-Continue meds per hospitalist.
Subjective/Interval History:
No acute events.
No subjective complaints.
DATA:
Cardiac Catheterization, 03/29/2024:
CONCLUSIONS
1. Right dominant circulation with a hemodynamically significant 58-60%, hazy mid left main coronary artery lesion, patent stents in the LAD, circumflex and OM1 and proximal RCA, all without in-stent restenosis and minor luminal irregularities.
2. Top normal to mildly elevated filling pressures (LVEDP = 16 mmHg at 123.8 kg).
3. Diabetes mellitus.
TTE, 03/29/2024:
CONCLUSIONS
LV ejection fraction is 55-60% by visual assessment. No regional wall motion
abnormalities are seen.
Normal right ventricular size and function.
No significant valvular disease.
No significant change since the prior study of 12/26/2019.
Physical Exam
Vital Signs/Labs
Vital Signs
Temp Pulse Resp BP Pulse Ox
36.6 C 59 18 90/44 97
04/01/24 11:28 04/01/24 12:00 04/01/24 11:28 04/01/24 11:30 04/01/24 11:28
03/31/24 04/01/24 04/02/24
11:59 11:59 11:59
Actual Weight 114 kg 112.8 kg
04/01/24 05:34
04/01/24 05:34
PT 13.0 Sec (11.4-14.6) 03/29/24 21:06
INR 0.98 03/29/24 21:06
APTT 84.7 Sec (23.4-35.0) H 04/01/24 05:34
Magnesium 1.8 mg/dl (1.6-2.3) 03/31/24 02:00
Triglycerides 246 mg/dl (10-149) H 03/30/24 05:31
LDL Cholesterol, Calc 74 mg/dl 03/30/24 05:31
VLDL Cholesterol, Calc 49 mg/dl (0-30) H 03/30/24 05:31
HDL Cholesterol 40 mg/dl 03/30/24 05:31
LAB Results
03/29/24 03/29/24 03/30/24
14:20 17:00 05:31
Troponin I 0.200 H* Cancelled 0.190 H*
Physical Exam
Constitutional: No acute distress and Comfortable
EENT: Anicteric and Moist mucous membranes
Cardiovascular: Rhythm & rate is regular, Pedal edema is absent, JVD pressure is normal, S1S2 is normal and Murmur/rub/gallop absent
Respiratory: Respiratory effort normal, Lungs clear to auscul., Wheeze Absent, Crackles Absent and Rhonchi Absent
GI: Soft, Distention absent, Flat, Non tender and Normal bowel sounds
Neuro/Psych: AO x 3
Data Reviewed
-
Date of Service: April 01, 2024
Medical Decision Making: Reviewed Test Results, Independent Historian Assessment, Test Interpretation and Review of Case with other Provider
EKG: Tracing Personally Visualized and interpreted and Report Reviewed by me
Echo: Tracing Personally Visualized and interpreted and Report Reviewed by me
X-Ray/CT/US/MRI/NUC/PET: Image Personally Visualized and interpreted, Report Reviewed by me, Discussed with Physician and Discussed with Patient
Medical Tests (PFT, Pathology etc): Image Personally Visualized and interpreted, Report Reviewed by me, Discussed with Physician and Discussed with Patient
Labs: Labs Reviewed by me
Old Records: Reviewed
--- NOTE | 2024-04-01 14:37 | CM ---
CM following for DC planning needs.
Met w/ patient at bedside to complete initial assessment.
Pt resides w/ sig. other in a private, 2 story home. He is functionally indep. at baseline w/ ADLs, mobility without the use of any assisted device.
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
Pt. and sig. other reside with an elderly woman, that they assist. They are currently living at [address] [place] [address]. in [place].
Pt. is anticipating CT Surgery on . 04/04. Will do pre-op teaching with him beforehand.
Pt. concerned with meals, transportation and income post operatively.
Will provide him with [employer] resources.
Plan is for CT Surgery 04/04.
Goal is for home w/ CT Transitional Care RN.
CM to follow.
[2024-04-01 17:40] LABS: Glucose - Point of Care 129 mg/dl (70-99)
[2024-04-01 21:38] LABS: Glucose - Point of Care 120 mg/dl (70-99)
[2024-04-01] MEDS: NITROSTAT (SUBLINGUAL) 0.400000000000000022 MG SL ×2 (22:00→22:11)
[2024-04-01] MEDS: TYLENOL 650 MG PO (22:15)
[2024-04-01] MEDS: TOPROL XL PO (22:17)
[2024-04-01] MEDS: DESYREL 100 MG PO (22:19)
[2024-04-01] MEDS: LIPITOR 80 MG PO (22:19)
[2024-04-01] MEDS: DEPAKOTE (12 HR RELEASE) 1000 MG PO (22:19)
[2024-04-01] MEDS: ATARAX 10 MG PO (22:19)
[2024-04-01] MEDS: TOPROL XL 50 MG PO (22:46)
[2024-04-02] VITALS (8 sets, daily range): BP systolic 102–115; BP diastolic 71–76; BMI 36.5
--- NOTE | 2024-04-02 03:35 | PTCARENOTE ---
Patient rang call dickson at approx 21:58 c/o left sided 'chest discomfort'. Patient rated pain a 2/10. BP 130/87. Sublingual nitro administered at 22:00, and BP post nitro 103/68. Post pain assessment performed, pt reports pain increased to a 3/10.
2nd sublingual nitroglycerin administered at 22:11. Patient developed headache after 2nd nitro. Tylenol administered at 22:15. Patient w/ good relief. Chest discomfort improved. Patient currently laying in bed.Tele remains SR. IV heparin gtt
currently infusing at 16ml/hr. POC ongoing. Call dickson within reach.
[2024-04-02] MEDS: TYLENOL 650 MG PO (04:34)
[2024-04-02 05:03] LABS: Hematocrit 37.7 % (39.0-52.0); Hemoglobin 13.2 g/dL (13.0-18.0); Mean Corpuscular Hgb 29.7 pg (27.0-31.0); Mean Corpuscular Volume 84.7 fL (80.0-94.0); Mean Platelet Volume 9.4 fL (7.4-10.4); Platelet Count 151 10^3/uL (130-400); Red Blood Cell Count 4.45 10^6/uL (4.70-6.10); White Blood Cell Count 9.1 10^3/uL (4.8-10.8)
[2024-04-02 05:17] LABS: APTT 94.6 Sec (23.4-35.0)
--- NOTE | 2024-04-02 05:23 | W.PN.CT ---
Today's Communication / Plan
-
Plan:
-Pt had 3/10 chest pain last night, relieved by SL NTG x 2
-NTG gtt d/c'd 03/30/24 d/t hypotension. Of note, on isosorbide mononitrate
-Plavix washout
-Ongoing CT Surgery evaluation
-For CABG by Dr. Fernandes likely 04/04
-Will cont. to closely monitor
Assessment / Plan
-
Assessment:
-CAD including 50-60% mid LM
-NSTEMI (peak trop 0.20)
-Unstable Angina
-Hx CAD S/P PCI with SHANA to RCA and LCx 07/2016; mid LAD 07/2017; high-grade ostial OM2 03/2021 (all patent per cath 03/29)
-Plavix washout, last dose 03/29
-LVEF 55-60%
-No significant valvular disease
-HTN
-HLD
-T2DM (A1C 7.4)
-Class 3 obesity (BMI 40.4)
-Probable COLETTE
-Bipolar disorder
-Anxiety disorder
-S/P Repair of undescended testes
Discussed patient care with: Cardiology, Nursing, Respiratory Therapy, Pharmacy and Care Team
Subjective
-
Date of Service: April 02, 2024
Pt had 3/10 chest pain last night, relieved by SL NTG x 2
Objective Data
-
Lab Results
04/02/24 04:44
PT 13.0 Sec (11.4-14.6) 03/29/24 21:06
INR 0.98 03/29/24 21:06
APTT 94.6 Sec (23.4-35.0) H 04/02/24 04:44
Vital Signs
Vital Signs
Temp Pulse Resp BP Pulse Ox
97.4 F 68 22 105/71 94
04/02/24 04:31 04/02/24 04:31 04/02/24 04:31 04/02/24 04:31 04/02/24 04:31
CT Intake/Output/Weight
04/01/24 04/01/24 04/02/24
06:59 18:59 06:59
Intake Total 432 / 432
Balance 432 / 432
SaO2: 94 (RA)
Physical Exam
-
General: Awake, Oriented and AOx3
Cardiovascular: Regular rate & rhythm, No Murmurs, No Rub and No Gallop
Respiratory: Clear
Sternum: Stable
Extremities: No Edema
Data Reviewed
-
Lab Results: Results Reviewed
Medications: Active Meds Reviewed
Chest X-Ray: Report Reviewed and Image Reviewed
ECG: Report Reviewed and Image Reviewed
[2024-04-02 05:31] LABS: Blood Urea Nitrogen 13 mg/dl (9-20); Calcium 9.8 mg/dl (8.4-10.2); Carbon Dioxide 27 mmol/L (22-30); Chloride 102 mmol/L (98-107); Estimated Creatinine Clearance 117 ml/min; Glucose 129 mg/dl (70-99); Magnesium 1.9 mg/dl (1.6-2.3); Sodium 137 mmol/L (135-145); eGFR > 60.00
[2024-04-02 08:11] LABS: Glucose - Point of Care 139 mg/dl (70-99)
[2024-04-02] MEDS: NOVOLOG FLEXPEN-LOW RESISTANCE SC ×2 (08:26→16:45)
--- NOTE | 2024-04-02 08:34 | W.PN.CD ---
Today's Communication / Plan
-
Clopidogrel washout.
SL nitro PRN chest pain.
CABG on 04/04/2024.
Impression / Plan
-
Impression/Plan: 53 y/o male with HTN, HLD, NIDDM and prior CAD with PCI of the RCA/LCx/LAD now admitted with NSTEMI.
#NSTEMI
-Acute. Pain exacerbated overnight, relieved with SL nitro.
-Troponin peaked at 0.200.
-Cardiac catheterization shows severe LMCA disease (MLA 4.5 mm2 on IVUS). Prior SHANA to RCA, LCX, mid LAD and ostial OM2 (2020), all stable on cardiac catheterization.
-Has not been seen in the office for quite some time. There is suspicion for non-compliance.
-Continue aspirin, atorvastatin, heparin and metoprolol.
-Clopidogrel washout.
-CT surgery consulted. CABG anticipated on 04/04/2024 (Dr. Fernandes).
#HTN
-Chronic, stable.
-Continue metoprolol.
-Lisinopril on hold for relative hypotension.
#HLD
-Chronic.
-Total cholesterol = 163, LDL = 74, HDL = 40, Triglycerides = 246.
-Goal LDL < 55.
-Continue atorvastatin 80 mg daily.
-Start ezetimibe 10 mg daily.
-Repeat lipid panel in 3 months. He may need PCSK9i and/or icosapent ethyl.
#GERD
-New diagnosis.
-Chest pain resolved with addition of PPI.
-Maintain pantoprazole at this time. Transition to famotidine as an outpatient.
#NIDDM
-Chronic, stable.
-HbA1c pending.
-Metformin on hold given recent cath.
-SSI per hospitalist.
-He would benefit from GLP1 analog (Diabetes + CAD + obesity).
#Anxiety
-Chronic, stable.
-Continue meds per hospitalist.
Subjective/Interval History:
Recurrent chest pain relieved with SL nitro overnight.
DATA:
Cardiac Catheterization, 03/29/2024:
CONCLUSIONS
1. Right dominant circulation with a hemodynamically significant 58-60%, hazy mid left main coronary artery lesion, patent stents in the LAD, circumflex and OM1 and proximal RCA, all without in-stent restenosis and minor luminal irregularities.
2. Top normal to mildly elevated filling pressures (LVEDP = 16 mmHg at 123.8 kg).
3. Diabetes mellitus.
TTE, 03/29/2024:
CONCLUSIONS
LV ejection fraction is 55-60% by visual assessment. No regional wall motion
abnormalities are seen.
Normal right ventricular size and function.
No significant valvular disease.
No significant change since the prior study of 12/26/2019.
Physical Exam
Vital Signs/Labs
Vital Signs
Temp Pulse Resp BP Pulse Ox
37.1 C 82 16 115/72 96
04/02/24 07:26 04/02/24 07:26 04/02/24 07:26 04/02/24 07:26 04/02/24 07:26
03/31/24 04/01/24 04/02/24
11:59 11:59 11:59
Actual Weight 114 kg 112.8 kg 111.9 kg
04/02/24 04:44
04/02/24 04:44
PT 13.0 Sec (11.4-14.6) 03/29/24 21:06
INR 0.98 03/29/24 21:06
APTT 94.6 Sec (23.4-35.0) H 04/02/24 04:44
Magnesium 1.9 mg/dl (1.6-2.3) 04/02/24 04:44
Triglycerides 246 mg/dl (10-149) H 03/30/24 05:31
LDL Cholesterol, Calc 74 mg/dl 03/30/24 05:31
VLDL Cholesterol, Calc 49 mg/dl (0-30) H 03/30/24 05:31
HDL Cholesterol 40 mg/dl 03/30/24 05:31
Physical Exam
Constitutional: No acute distress and Comfortable
EENT: Anicteric and Moist mucous membranes
Cardiovascular: Rhythm & rate is regular, Pedal edema is absent, JVD pressure is normal, S1S2 is normal and Murmur/rub/gallop absent
Respiratory: Respiratory effort normal, Lungs clear to auscul., Wheeze Absent, Crackles Absent and Rhonchi Absent
GI: Soft, Distention absent, Flat, Non tender and Normal bowel sounds
Neuro/Psych: AO x 3
Data Reviewed
-
Date of Service: April 02, 2024
Medical Decision Making: Reviewed Test Results, Independent Historian Assessment, Test Interpretation and Review of Case with other Provider
EKG: Tracing Personally Visualized and interpreted and Report Reviewed by me
Echo: Tracing Personally Visualized and interpreted and Report Reviewed by me
X-Ray/CT/US/MRI/NUC/PET: Image Personally Visualized and interpreted and Report Reviewed by me
Medical Tests (PFT, Pathology etc): Image Personally Visualized and interpreted and Report Reviewed by me
Labs: Labs Reviewed by me
--- NOTE | 2024-04-02 08:34 | W.PN.HOSP.TC ---
Today's Communication/Plan
-
see A/P
Assessment / Plan
Assessment / Plan
Physical Exam
General: Conversant, Morbidly Obese; No Chills
HEENT: NormoCephalic, Anicteric, Moist mucous membranes, PERRLA, [place] Conjunctivae and No Ptosis
Respiratory: Clear; No Wheezes, Rales or Rhonchi
Cardiac: S1/S2 and Regular Rhythm; No Murmur, Rub, Gallop or Peripheral Edema
Breast: Deferred by me
GI: Soft, Non Tender, Non Distended, Normal Bowel Sounds and No Hepatosplenomegaly
Genito-urinary: Deferred by me
Musculoskeletal: No Clubbing, No Cyanosis and No Edema
Skin: Warm and Dry; No Rash
Neuro: AO x 3, No Motor Deficits, Nonfocal/grossly intact, Cranial Nerves Intact and No Sensory Deficits; No Slurred Speech, Facial Droop or Tremors
Psych: Calm
A/P:
# ACS/unstable angina with NSTEMI
# CAD�PTCA/stent circumflex, RCA 08/08/2016, stent OM 11/28/2020
Cardiac catheterization 03/29/24 showed severe left main coronary artery lesion, patent stents in the LAD, circumflex and OM1 and proximal RCA, all without in-stent restenosis and minor luminal irregularities.
Off nitro drip due to hypotension.
Cont isosorbide mononitrate, aspirin, statin, heparin drip, metoprolol
EF 55 -60 %
For CABG by Dr. Fernandes likely 04/04 after Plavix washout
# Nonspecific chest pain
Possibly secondary to cardiac disease although there is possibility of acid reflux
Initiated PPI IV
# HTN�benign
Cont Imdur 60 mg daily, metoprolol succinate 50 mg with hold parameters
lisinopril on hold
# DM2 with hyperglycemia
Accu-Cheks with SSI,
HgbA1c 7.4 %
Hold metformin 500 mg daily
# GERD
Continue Protonix 40 mg at bedtime
# HLD
statin
Started Ezetimibe
would benefit from GLP-1
# Bipolar disorder
Mood stable
Continue trazodone 100 mg at bedtime, Depakote 500 mg a.m., 1000 g at bedtime, Wellbutrin 200 mg daily
Continue clonazepam 1 mg twice daily
Pt stopped Seroquel 400 mg at bedtime, Ambien 10 mg at bedtime 2 weeks ago due to feeling off and walking into bill
# Insomnia
Continue hydroxyzine 10 mg at bedtime
Pt stopped Ambien 10 mg at bedtime 2 weeks ago
# Obesity due to excess calorie consumption
BMI 40.4 kg
Affects all aspects of care
Weight loss recommended, low-fat diet
DVT prophylaxis: Continue IV heparin drip
Full code
Anticipated Discharge: > 48 hours
Subjective/Interval History
-
Date of Service: April 02, 2024
Objective Data
-
Labs:
Laboratory Results
04/02/24
04:44
WBC 9.1
Hgb 13.2
Hct 37.7 L
Plt Count 151
APTT 94.6 H
Sodium 137
Potassium 4.0
Chloride 102
Carbon Dioxide 27
BUN 13
Creatinine 0.9
Glucose 129 H
Calcium 9.8
Vital Signs:
Vital Signs
Temp Pulse Resp BP Pulse Ox
37.1 C 82 16 115/72 96
04/02/24 07:26 04/02/24 07:26 04/02/24 07:26 04/02/24 07:26 04/02/24 07:26
I&O
04/01/24 04/02/24 04/03/24
06:59 06:59 06:59
Intake Total 480 / 480 432 / 432
Balance 480 / 480 432 / 432
Review of Systems
-
All other systems: Reviewed and negative
Data Reviewed
-
Labs: Labs Reviewed by me
[2024-04-02] MEDS: PROTONIX IV 40 MG IV (08:54)
[2024-04-02] MEDS: NSS (PRESERVATIVE FREE) 10 ML IV (08:54)
[2024-04-02] MEDS: WELLBUTRIN SR (12 hour sustained release) 200 MG PO (08:55)
[2024-04-02] MEDS: LAMICTAL 100 MG PO (08:55)
[2024-04-02] MEDS: IMDUR (EXTENDED RELEASE) 60 MG PO (08:55)
[2024-04-02] MEDS: DEPAKOTE (12 HR RELEASE) 500 MG PO (08:55)
[2024-04-02] MEDS: FLUSH (NSS) 3 FLUSH IV (08:55)
[2024-04-02] MEDS: KLONOPIN 1 MG PO ×2 (08:56→19:33)
--- NOTE | 2024-04-02 09:05 | PTCARENOTE ---
The patient is aaox3 and ambulatory in his room. His vital signs are stable. NSR is noted on the monitor. He has no complaints of chest pain. His heparin gtt is running at 1600 units/hr and his call dickson is within reach.
[2024-04-02] MEDS: HEPARIN 25000 UNITS/250 ML IV (09:41)
--- NOTE | 2024-04-02 11:27 | CM ---
Addendum entered by SHOAIB Montgomery 04/02/24 15:08:
Met with patient this afternoon. Pt. was sleepy and I agreed to return tomorrow to complete pre-op teaching.
[facility] medical transport/ rapid response team.
Will meet w/ patient again tomorrow for pre-op teaching.
Original Note:
CM following for DC planning needs.
Attempted to meet with patient to provide resources from [facility] and [facility], however, patient was sleeping soundly and did not arouse to name.
Will re-attempt at a later time.
Will also plan to complete pre-op teaching at that time.
[2024-04-02 13:06] LABS: Glucose - Point of Care 182 mg/dl (70-99)
[2024-04-02] MEDS: NOVOLOG FLEXPEN-LOW RESISTANCE 1 UNITS SC (13:50)
[2024-04-02 16:27] LABS: Glucose - Point of Care 148 mg/dl (70-99)
[2024-04-02 22:09] LABS: Glucose - Point of Care 117 mg/dl (70-99)
[2024-04-02] MEDS: DESYREL 100 MG PO (22:27)
[2024-04-02] MEDS: TOPROL XL 50 MG PO (22:27)
[2024-04-02] MEDS: LIPITOR 80 MG PO (22:27)
[2024-04-02] MEDS: DEPAKOTE (12 HR RELEASE) 1000 MG PO (22:27)
[2024-04-02] MEDS: ATARAX 10 MG PO (22:27)
[2024-04-02] MEDS: SENOKOT-S 1 TABLET PO (22:56)
[2024-04-03] VITALS (8 sets, daily range): BP systolic 95–139; BP diastolic 61–119; BMI 36.3
[2024-04-03] MEDS: HEPARIN 25000 UNITS/250 ML IV ×2 (00:22→16:57)
--- NOTE | 2024-04-03 01:38 | PTCARENOTE ---
Tele remains SR, VSS, and denies any chest pain or discomfort. IV heparin gtt remains at 16ml/hr. POC ongoing. Call dickson within reach, pt can make his needs known.
[2024-04-03 03:02] LABS: Hematocrit 37.9 % (39.0-52.0); Hemoglobin 13.5 g/dL (13.0-18.0); Mean Corp Hgb Conc. 35.6 g/dL (33.0-37.0); Mean Corpuscular Hgb 29.9 pg (27.0-31.0); Mean Corpuscular Volume 83.8 fL (80.0-94.0); Mean Platelet Volume 9.2 fL (7.4-10.4); Platelet Count 152 10^3/uL (130-400); Red Blood Cell Count 4.52 10^6/uL (4.70-6.10); White Blood Cell Count 9.8 10^3/uL (4.8-10.8)
[2024-04-03 03:16] LABS: APTT 101.2 Sec (23.4-35.0)
[2024-04-03 03:29] LABS: Blood Urea Nitrogen 12 mg/dl (9-20); Calcium 9.7 mg/dl (8.4-10.2); Carbon Dioxide 26 mmol/L (22-30); Chloride 103 mmol/L (98-107); Estimated Creatinine Clearance 105 ml/min; Glucose 119 mg/dl (70-99); Magnesium 1.9 mg/dl (1.6-2.3); Potassium 4.2 mmol/L (3.5-5.1); Sodium 137 mmol/L (135-145); eGFR > 60.00
--- NOTE | 2024-04-03 04:49 | W.PN.CT ---
Today's Communication / Plan
-
Plan:
-No chest pain overnight
-NTG gtt d/c'd 03/30/24 d/t hypotension. Of note, on isosorbide mononitrate
-Plavix washout
-Ongoing CT Surgery evaluation
-For CABG by Dr. Fernandes likely tomorrow 04/04
-Will cont. to closely monitor
Assessment / Plan
-
Assessment:
-CAD including 50-60% mid LM
-NSTEMI (peak trop 0.20)
-Unstable Angina
-Hx CAD S/P PCI with SHANA to RCA and LCx 07/2016; mid LAD 07/2017; high-grade ostial OM2 03/2021 (all patent per cath 03/29)
-Plavix washout, last dose 03/29
-LVEF 55-60%
-No significant valvular disease
-HTN
-HLD
-T2DM (A1C 7.4)
-Class 3 obesity (BMI 40.4)
-Probable COLETTE
-Bipolar disorder
-Anxiety disorder
-S/P Repair of undescended testes
Discussed patient care with: Cardiology, Nursing, Respiratory Therapy, Pharmacy and Care Team
Subjective
-
Date of Service: April 03, 2024
No issues overnight. Denies CP/SOB
Objective Data
-
Lab Results
04/03/24 02:42
04/03/24 02:42
PT 13.0 Sec (11.4-14.6) 03/29/24 21:06
INR 0.98 03/29/24 21:06
APTT 101.2 Sec (23.4-35.0) H 04/03/24 02:42
Vital Signs
Vital Signs
Temp Pulse Resp BP Pulse Ox
97.6 F 71 20 122/84 96
04/03/24 02:45 04/03/24 03:00 04/03/24 02:45 04/03/24 02:32 04/03/24 02:45
CT Intake/Output/Weight
04/02/24 04/02/24 04/03/24
06:59 18:59 06:59
Intake Total 432 / 432 720 / 960 240 / 960
Balance 432 / 432 720 / 960 240 / 960
SaO2: 96 (RA)
Physical Exam
-
General: Awake, Oriented and AOx3
Cardiovascular: Regular rate & rhythm, No Murmurs and No Rub
Respiratory: Decreased Breath Sounds
Sternum: Stable
Incision: Clean, Dry and Intact
Extremities: No Edema
Data Reviewed
-
Lab Results: Results Reviewed
Medications: Active Meds Reviewed
Chest X-Ray: Report Reviewed and Image Reviewed
ECG: Report Reviewed and Image Reviewed
[2024-04-03] MEDS: PROTONIX IV 40 MG IV (08:27)
[2024-04-03] MEDS: KLONOPIN 1 MG PO ×2 (08:28→22:48)
[2024-04-03] MEDS: WELLBUTRIN SR (12 hour sustained release) 200 MG PO (08:28)
[2024-04-03] MEDS: LAMICTAL 100 MG PO (08:28)
[2024-04-03] MEDS: IMDUR (EXTENDED RELEASE) 60 MG PO (08:28)
[2024-04-03] MEDS: DEPAKOTE (12 HR RELEASE) 500 MG PO (08:29)
[2024-04-03] MEDS: FLUSH (NSS) 1 FLUSH IV (08:30)
[2024-04-03 08:43] LABS: Glucose - Point of Care 129 mg/dl (70-99)
[2024-04-03] MEDS: NOVOLOG FLEXPEN-LOW RESISTANCE SC ×3 (08:44→17:03)
[2024-04-03] MEDS: NSS (PRESERVATIVE FREE) 10 ML IV (08:45)
--- NOTE | 2024-04-03 11:01 | W.PN.UPDATE ---
Addendum entered and electronically signed by Stepan Fernandes MD 04/04/24 07:39:
I saw and examined the patient.
The PA's note was reviewed and I agree with the note.
Comment:
CARDIAC SURGERY ATTENDING:
I had a long conversation with Mr. Jermaine Kuhn. We re-discussed his pathology, the proposed operative interventions, the associated perioperative risks (including, but not limited to, , stroke, MT, arrhythmia, PNA, RAE/F, bleeding, and
infection), the expected in-hospital postoperative course, and the expected outpatient recovery. All questions were answered to the best of my abilities. Mr. Kuhn is agreeable to proceed. Given his young age and LM CAD, I am planning for FATEMEH
grafting w/ DEBRA to LAD and fRITA 'Y' to OM. We discussed that given his elevated BMI (36.1), FATEMEH grafting could negatively affect sternal healing, but that FATEMEH grafting would provide the best patency rates given his young age. The current
operative plan is also dependent on the quality/flow through his BITAs at the time of surgery. I will plan to close w/ rigid sternal plate fixation in addition to sternal wires.
Original Note:
Update Note
Progress Note Update
Procedure Type:�Isolated CABG
PERIOPERATIVE OUTCOME ESTIMATE %
Operative Mortality 0.652%
Morbidity & Mortality 4.65%
Stroke 0.52%
Renal Failure 0.527%
Reoperation 1.33%
Prolonged Ventilation 2.48%
Deep Sternal Wound Infection 0.27%
Long Hospital Stay (>14 days) 1.97%
Short Hospital Stay (<6 days)* 67.1%
Clinical Summary
Planned Surgery: Isolated CABG, Urgent, First cardiovascular surgery
Demographics: 53 year old, male, 124kg, 175cm, BMI: 40.5 kg/m�
Lab Values: Creatinine: 0.7 mg/dL, Hematocrit: 40%, WBC Count: 8.2 10�/�L, Platelet Count: 472661 cells/�L
PreOp Medications: Oral diabetes control
Substance Abuse: Former smoker
Risk Factors / Comorbidities: Diabetes Mellitus , Hypertension
Cardiac Status: Ejection Fraction = 50%
Coronary Artery Disease: 2 vessels diseased, Left Main Stenosis >=50%, Non-ST Elevation MT, MT: 1 to 7 Days
Valve Disease: Trivial/Trace MR
--- NOTE | 2024-04-03 11:14 | W.PN.CD ---
Today's Communication / Plan
-
CABG tomorrow.
Impression / Plan
-
Impression/Plan: 53 y/o male with HTN, HLD, NIDDM and prior CAD with PCI of the RCA/LCx/LAD now admitted with NSTEMI.
#NSTEMI
-Acute. Pain exacerbated overnight, relieved with SL nitro.
-Troponin peaked at 0.200.
-Cardiac catheterization shows severe LMCA disease (MLA 4.5 mm2 on IVUS). Prior SHANA to RCA, LCX, mid LAD and ostial OM2 (2020), all stable on cardiac catheterization.
-Has not been seen in the office for quite some time. There is suspicion for non-compliance.
-Continue aspirin, atorvastatin, heparin and metoprolol.
-Clopidogrel washout.
-CT surgery consulted. CABG anticipated on 04/04/2024 (Dr. Fernandes).
#HTN
-Chronic, stable.
-Continue metoprolol.
-Lisinopril on hold for relative hypotension.
#HLD
-Chronic.
-Total cholesterol = 163, LDL = 74, HDL = 40, Triglycerides = 246.
-Goal LDL < 55.
-Continue atorvastatin 80 mg daily.
-Start ezetimibe 10 mg daily.
-Repeat lipid panel in 3 months. He may need PCSK9i and/or icosapent ethyl.
#GERD
-New diagnosis.
-Chest pain resolved with addition of PPI.
-Maintain pantoprazole at this time. Transition to famotidine as an outpatient.
#NIDDM
-Chronic, stable.
-HbA1c pending.
-Metformin on hold given recent cath.
-SSI per hospitalist.
-He would benefit from GLP1 analog (Diabetes + CAD + obesity).
#Anxiety
-Chronic, stable.
-Continue meds per hospitalist.
Subjective/Interval History:
No acute events.
No subjective complaints.
DATA:
Cardiac Catheterization, 03/29/2024:
CONCLUSIONS
1. Right dominant circulation with a hemodynamically significant 58-60%, hazy mid left main coronary artery lesion, patent stents in the LAD, circumflex and OM1 and proximal RCA, all without in-stent restenosis and minor luminal irregularities.
2. Top normal to mildly elevated filling pressures (LVEDP = 16 mmHg at 123.8 kg).
3. Diabetes mellitus.
TTE, 03/29/2024:
CONCLUSIONS
LV ejection fraction is 55-60% by visual assessment. No regional wall motion
abnormalities are seen.
Normal right ventricular size and function.
No significant valvular disease.
No significant change since the prior study of 12/26/2019.
Physical Exam
Vital Signs/Labs
Vital Signs
Temp Pulse Resp BP Pulse Ox
36.5 C 71 18 127/86 96
04/03/24 07:57 04/03/24 10:00 04/03/24 07:57 04/03/24 07:57 04/03/24 07:57
04/01/24 04/02/24 04/03/24
11:59 11:59 11:59
Actual Weight 112.8 kg 111.9 kg 111.5 kg
04/03/24 02:42
04/03/24 02:42
PT 13.0 Sec (11.4-14.6) 03/29/24 21:06
INR 0.98 03/29/24 21:06
APTT 101.2 Sec (23.4-35.0) H 04/03/24 02:42
Magnesium 1.9 mg/dl (1.6-2.3) 04/03/24 02:42
Triglycerides 246 mg/dl (10-149) H 03/30/24 05:31
LDL Cholesterol, Calc 74 mg/dl 03/30/24 05:31
VLDL Cholesterol, Calc 49 mg/dl (0-30) H 03/30/24 05:31
HDL Cholesterol 40 mg/dl 03/30/24 05:31
Physical Exam
Constitutional: No acute distress and Comfortable
EENT: Anicteric and Moist mucous membranes
Cardiovascular: Rhythm & rate is regular, Pedal edema is absent, JVD pressure is normal, S1S2 is normal and Murmur/rub/gallop absent
Respiratory: Respiratory effort normal, Lungs clear to auscul., Wheeze Absent, Crackles Absent and Rhonchi Absent
GI: Soft, Distention absent, Flat, Non tender and Normal bowel sounds
Neuro/Psych: AO x 3
Data Reviewed
-
Date of Service: April 03, 2024
Medical Decision Making: Reviewed Test Results, Independent Historian Assessment, Test Interpretation and Review of Case with other Provider
EKG: Tracing Personally Visualized and interpreted and Report Reviewed by me
Echo: Tracing Personally Visualized and interpreted and Report Reviewed by me
X-Ray/CT/US/MRI/NUC/PET: Image Personally Visualized and interpreted and Report Reviewed by me
Medical Tests (PFT, Pathology etc): Image Personally Visualized and interpreted and Report Reviewed by me
Labs: Labs Reviewed by me
Old Records: Reviewed
--- NOTE | 2024-04-03 11:24 | CM ---
CM following for DC planning needs.
Attempted to meet w/ patient at bedside to complete pre-op teaching. Pt. was sleeping soundly. Did not arouse. Will re-attempt again at a later time.
Plan for OR 04/05
--- NOTE | 2024-04-03 11:34 | W.PN.HOSP.TC ---
Today's Communication/Plan
-
for CBGA tmr
Assessment / Plan
Assessment / Plan
Physical Exam
General: Conversant, Morbidly Obese; No Chills
HEENT: NormoCephalic, Anicteric, Moist mucous membranes, PERRLA, [place] Conjunctivae and No Ptosis
Respiratory: Clear; No Wheezes, Rales or Rhonchi
Cardiac: S1/S2 and Regular Rhythm; No Murmur, Rub, Gallop or Peripheral Edema
Breast: Deferred by me
GI: Soft, Non Tender, Non Distended, Normal Bowel Sounds and No Hepatosplenomegaly
Genito-urinary: Deferred by me
Musculoskeletal: No Clubbing, No Cyanosis and No Edema
Skin: Warm and Dry; No Rash
Neuro: No Motor Deficits, Nonfocal/grossly intact, Cranial Nerves Intact and No Sensory Deficits; No Slurred Speech, Facial Droop or Tremors
Psych: Calm
A/P:
# ACS/unstable angina with NSTEMI
# CAD�PTCA/stent circumflex, RCA 08/08/2016, stent OM 11/28/2020
Cardiac catheterization 03/29/24 showed severe left main coronary artery lesion, patent stents in the LAD, circumflex and OM1 and proximal RCA, all without in-stent restenosis and minor luminal irregularities.
Off nitro drip due to hypotension.
Cont isosorbide mononitrate, aspirin, statin, heparin drip, metoprolol
EF 55 -60 %
For CABG by Dr. Fernandes likely 04/04 after Plavix washout
# Nonspecific chest pain
Possibly secondary to cardiac disease although there is possibility of acid reflux
Initiated PPI IV
# HTN�benign
Cont Imdur 60 mg daily, metoprolol succinate 50 mg with hold parameters
lisinopril on hold
# DM2 with hyperglycemia
Accu-Cheks with SSI,
HgbA1c 7.4 %
Hold metformin 500 mg daily
# GERD
Continue Protonix 40 mg at bedtime
# HLD
statin
Started Ezetimibe
would benefit from GLP-1
# Bipolar disorder
Mood stable
Continue trazodone 100 mg at bedtime, Depakote 500 mg a.m., 1000 g at bedtime, Wellbutrin 200 mg daily
Continue clonazepam 1 mg twice daily
Pt stopped Seroquel 400 mg at bedtime, Ambien 10 mg at bedtime 2 weeks ago due to feeling off and walking into bill
# Insomnia
Continue hydroxyzine 10 mg at bedtime
Pt stopped Ambien 10 mg at bedtime 2 weeks ago
# Obesity due to excess calorie consumption
BMI 40.4 kg
Affects all aspects of care
Weight loss recommended, low-fat diet
DVT prophylaxis: Continue IV heparin drip
Full code
Anticipated Discharge: 24 - 48 hours
Subjective/Interval History
-
Date of Service: April 03, 2024
Objective Data
-
Labs:
Laboratory Results
04/03/24
02:42
WBC 9.8
Hgb 13.5
Hct 37.9 L
Plt Count 152
APTT 101.2 H
Sodium 137
Potassium 4.2
Chloride 103
Carbon Dioxide 26
BUN 12
Creatinine 1.0
Glucose 119 H
Calcium 9.7
Vital Signs:
Vital Signs
Temp Pulse Resp BP Pulse Ox
36.5 C 71 18 127/86 96
04/03/24 07:57 04/03/24 10:00 04/03/24 07:57 04/03/24 07:57 04/03/24 07:57
I&O
04/02/24 04/03/24 04/04/24
06:59 06:59 06:59
Intake Total 432 / 432 1152 / 1152
Balance 432 / 432 1152 / 1152
Review of Systems
-
All other systems: Reviewed and negative
Data Reviewed
-
Labs: Labs Reviewed by me
[2024-04-03 13:20] LABS: Glucose - Point of Care 117 mg/dl (70-99)
--- NOTE | 2024-04-03 15:52 | CM ---
spoke to pt in room, we discussed preop CABG reaching including driving an lifting restrictions. he is pre vindep, lives with his GF in a 2 story home, he rents a room from a woman who owns the house. his GF does not drive. he has the cardiac educ
book. he is agreeable ot a f/u appt from the [place] transitional care nurse after dc. he might be able to get a ride home from the hospital and can take transportation from [facility] to get to his surgeon appt. his GF works at [employer] and will pick
up food for them and his roomate is providing her rides. plan is for CABG 04/04, cm role explained and all questions answered.
[2024-04-03 16:11] LABS: Glucose - Point of Care 144 mg/dl (70-99)
--- NOTE | 2024-04-03 17:26 | PTCARENOTE ---
Pt denies any chest pain or sob. Heparin infusing as ordered. Encouraged oob to the chair but pt prefers to stay in bed. No c/o offered.
--- NOTE | 2024-04-03 19:30 | PTCARENOTE ---
received pt into room 2605. pt A&Ox4, resting in chair at time of assessment. no c/o pain. SR on tele-monitor. HR 80s. POX 95% on RA. abd s/n, +BS. voiding in bathroom. no edema noted. palpable peripheral pulses. plan of care discussed w/ pt, pt in
agreement.
[2024-04-03] MEDS: ATARAX 10 MG PO (22:47)
[2024-04-03] MEDS: TOPROL XL 50 MG PO (22:47)
[2024-04-03] MEDS: LIPITOR 80 MG PO (22:47)
[2024-04-03] MEDS: DEPAKOTE (12 HR RELEASE) 1000 MG PO (22:47)
[2024-04-03] MEDS: DESYREL 100 MG PO (22:48)
--- NOTE | 2024-04-03 23:00 | PTCARENOTE ---
pt clipped for CVOR. pt completed 1st shower. NPO for 0000. heparin infusing, tactical air control party manager to CVOR.
[2024-04-04] VITALS (20 sets, daily range): BP systolic 87–149; BP diastolic 51–96; BMI 36.1
[2024-04-04 03:57] LABS: Hematocrit 36.6 % (39.0-52.0); Hemoglobin 12.9 g/dL (13.0-18.0); Mean Corp Hgb Conc. 35.2 g/dL (33.0-37.0); Mean Corpuscular Hgb 29.9 pg (27.0-31.0); Mean Corpuscular Volume 84.7 fL (80.0-94.0); Mean Platelet Volume 9.7 fL (7.4-10.4); Platelet Count 155 10^3/uL (130-400); Red Blood Cell Count 4.32 10^6/uL (4.70-6.10); Red Cell Dist. Width 14.1 % (11.5-14.5); White Blood Cell Count 8.2 10^3/uL (4.8-10.8)
[2024-04-04 04:05] LABS: APTT 81.9 Sec (23.4-35.0)
[2024-04-04 04:38] LABS: Blood Urea Nitrogen 14 mg/dl (9-20); Calcium 9.6 mg/dl (8.4-10.2); Carbon Dioxide 24 mmol/L (22-30); Chloride 102 mmol/L (98-107); Estimated Creatinine Clearance 105 ml/min; Glucose 117 mg/dl (70-99); Magnesium 1.8 mg/dl (1.6-2.3); Potassium 4.1 mmol/L (3.5-5.1); Sodium 137 mmol/L (135-145); eGFR > 60.00
[2024-04-04] MEDS: BACTROBAN 2% OINTMENT 1 APPLIC NASAL ×2 (05:58→20:30)
[2024-04-04] MEDS: MAGNESIUM OXIDE 500 MG PO (05:58)
[2024-04-04] MEDS: LOPRESSOR 25 MG PO (05:58)
[2024-04-04] MEDS: PROTONIX 40 MG PO (05:58)
--- NOTE | 2024-04-04 06:19 | PTCARENOTE ---
pre-op labs drawn. 2nd shower completed. pre-op meds given. pre-op education provided. all questions answered. pt NPO since 0000. heparin gtt union organiser to CVOR.
[2024-04-04 07:23] LABS: ACT+ - POC 93 Seconds (82-134)
[2024-04-04 07:28] LABS: B.E. - POC -0.5 mmol/L; Glucose - POC 148 mg/dl (65-99); HCO3 - POC 25 mmol/L (21-29); Hematocrit - POC 42 % PCV (42-52); Hemodilution- POC No; Hemoglobin Calculated - POC 14.3; Ionized Calcium - POC 1.32 mmol/L (1.12-1.27); O2 Saturation %Calculated-POC 98.4 5 (92-96); PCO2 - POC 44 mmHg (35-45); PO2 - POC 116 mmHg (80-100); POC Comment PRE; Sodium - POC 140 mmol/L (135-145); pH - POC 7.37 (7.35-7.45)
--- NOTE | 2024-04-04 07:39 | W.CVOR.SURPR ---
CVOR Surgeon Immed Pre Op
-
I have examined this patient prior to performance of the scheduled procedure.
The patient's condition is unchanged from the time of the dictated/written History and
Physical and the patient is able to undergo the scheduled procedure.
[2024-04-04 08:10] LABS: Urine Albumin Trace (Neg - Trace); Urine Bilirubin 1+ (Negative); Urine Character Clear (Clear); Urine Color Yellow; Urine Glucose Negative (Negative); Urine Ketone 1+ (Negative); Urine Leukocyte Negative (Negative); Urine Nitrite Negative (Negative); Urine Occult Blood 1+ (Negative); Urine Specific Gravity 1.015 (<1.030); Urine Urobilinogen 1+ (Neg - 1+)
[2024-04-04 08:30] LABS: Urine Amorphous Seen; Urine Squamous Cell 0-2 /LPF (Few)
--- NOTE | 2024-04-04 09:50 | W.PN.UPDATE ---
Update Note
Progress Note Update
Pt underwent Bypass surgery and will be under CT surgery service.
Hospitalist service will no longer be following.
Please call back if needed
[2024-04-04 10:12] LABS: ACT+ - POC 621 Seconds (82-134)
[2024-04-04 10:50] LABS: B.E. - POC 1.3 mmol/L; Glucose - POC 238 mg/dl (65-99); HCO3 - POC 28 mmol/L (21-29); Hematocrit - POC 32 % PCV (42-52); Hemodilution- POC Yes; Hemoglobin Calculated - POC 10.9; Ionized Calcium - POC 1.16 mmol/L (1.12-1.27); O2 Saturation %Calculated-POC 99.6 5 (92-96); PCO2 - POC 51 mmHg (35-45); PO2 - POC 192 mmHg (80-100); POC Comment CPB; Potassium - POC 5.1 mmol/L (3.6-5.0); Sodium - POC 136 mmol/L (135-145); pH - POC 7.34 (7.35-7.45)
[2024-04-04 10:54] LABS: ACT+ - POC 514 Seconds (82-134)
[2024-04-04 11:15] LABS: B.E. - POC -0.8 mmol/L; Glucose - POC 223 mg/dl (65-99); HCO3 - POC 24 mmol/L (21-29); Hematocrit - POC 34 % PCV (42-52); Hemodilution- POC Yes; Hemoglobin Calculated - POC 11.4; Ionized Calcium - POC 1.17 mmol/L (1.12-1.27); O2 Saturation %Calculated-POC 99.7 5 (92-96); PCO2 - POC 40 mmHg (35-45); PO2 - POC 191 mmHg (80-100); POC Comment CPB; Potassium - POC 4.4 mmol/L (3.6-5.0); Sodium - POC 139 mmol/L (135-145); pH - POC 7.39 (7.35-7.45)
[2024-04-04 11:18] LABS: ACT+ - POC 564 Seconds (82-134)
[2024-04-04 11:58] LABS: B.E. - POC -0.1 mmol/L; Glucose - POC 193 mg/dl (65-99); HCO3 - POC 26 mmol/L (21-29); Hematocrit - POC 32 % PCV (42-52); Hemodilution- POC Yes; Hemoglobin Calculated - POC 10.8; Ionized Calcium - POC 1.13 mmol/L (1.12-1.27); O2 Saturation %Calculated-POC 99.9 5 (92-96); PCO2 - POC 46 mmHg (35-45); PO2 - POC 296 mmHg (80-100); POC Comment CPB; Potassium - POC 4.7 mmol/L (3.6-5.0); Sodium - POC 139 mmol/L (135-145); pH - POC 7.36 (7.35-7.45)
[2024-04-04 11:58] LABS: ACT+ - POC 471 Seconds (82-134)
[2024-04-04 12:23] LABS: B.E. - POC -1.2 mmol/L; Glucose - POC 207 mg/dl (65-99); HCO3 - POC 23 mmol/L (21-29); Hematocrit - POC 33 % PCV (42-52); Hemodilution- POC Yes; Hemoglobin Calculated - POC 11.1; Ionized Calcium - POC 1.12 mmol/L (1.12-1.27); O2 Saturation %Calculated-POC 99.9 5 (92-96); PCO2 - POC 37 mmHg (35-45); PO2 - POC 293 mmHg (80-100); POC Comment WARM; Potassium - POC 4.7 mmol/L (3.6-5.0); Sodium - POC 140 mmol/L (135-145)
[2024-04-04 12:28] LABS: ACT+ - POC 555 Seconds (82-134)
[2024-04-04 13:00] LABS: ACT+ - POC 101 Seconds (82-134)
[2024-04-04 13:04] LABS: B.E. - POC -5.3 mmol/L; Glucose - POC 173 mg/dl (65-99); HCO3 - POC 21 mmol/L (21-29); Hematocrit - POC 29 % PCV (42-52); Hemodilution- POC Yes; Hemoglobin Calculated - POC 9.8; Ionized Calcium - POC 1.32 mmol/L (1.12-1.27); O2 Saturation %Calculated-POC 98.9 5 (92-96); PCO2 - POC 40 mmHg (35-45); PO2 - POC 137 mmHg (80-100); POC Comment POST; Potassium - POC 4.1 mmol/L (3.6-5.0); Sodium - POC 141 mmol/L (135-145); pH - POC 7.32 (7.35-7.45)
--- NOTE | 2024-04-04 13:22 | CON.INTV ---
Consultation
Consultation Request
Date/Time Consultation Requested: 04/04/2024
Date/Time Consultation Performed: 04/04/2024
Requesting Provider: Dr. Fernandes
Performing Provider: Dr. Manny Ayala
Reason for Consultation: Coronary artery bypass-postoperative ICU care
Medical History
-
History of Present Illness:
53-year-old man with known history of coronary artery disease, multiple stents, admitted through the emergency room on 03/29/2024 complaining of chest pain for 1 week. Has not been taking aspirin for longer than a month prior admission. Has not
followed up with cardiology in longer than a year. Found to have increased troponin. Echocardiogram reported normal LVEF. Subsequently underwent cardiac catheterization that demonstrated significant left main disease. He was deemed candidate for
revascularization. Coronary artery bypass underwent 04/04/2024. Patient in the critical care unit. Intubated, sedated on mechanical ventilation.
Unable to provide history.
Records reviewed.
Past Medical History
Past Medical History: Other (See assessment and plan section)
Social History
Tobacco: Former Smoker
Alcohol: None
Drug: None
Personal: Single
Living: Other (Girlfriend)
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
Family History
Family History: Unable to Obtain
Allergies / Home Medications
Allergies
Allergy/AdvReac Type Severity Reaction Status Date / Time
No Known Allergies Allergy Verified 03/29/24 13:17
Home Medications
�Medication �Instructions �Recorded �Confirmed �Last Taken �Type
clopidogrel 75 mg tablet 75 mg PO DAILY ##90 08/09/16 03/29/24 03/28/24 Rx
hydroxyzine HCl 10 mg tablet 10 mg PO HS Mental Health/Anxiety 03/30/17 03/29/24 03/28/24 History
lisinopril 40 mg tablet 20 mg PO HS Blood Pressure 03/30/17 03/29/24 03/28/24 History
atorvastatin 80 mg tablet 80 mg PO HS High Cholesterol 08/21/17 03/29/24 03/28/24 History
metoprolol succinate 50 mg 50 mg PO HS Heart Disease/Condition 08/21/17 03/29/24 03/28/24 History
tablet,extended release 24 hr
nitroglycerin 0.4 mg sublingual 0.4 mg sublingual [id number] PRN 09/14/18 03/29/24 12/26/19 09:00 History
tablet chest pain
pantoprazole 40 mg tablet,delayed 40 mg PO HS Gastrointestinal Issue 09/14/18 03/29/24 03/28/24 History
release
clonazepam 1 mg tablet 1 mg PO BID Mental Health/Anxiety 04/12/21 03/29/24 03/28/24 History
divalproex 500 mg tablet,delayed 1,000 mg PO HS Mental 04/12/21 03/29/24 03/28/24 History
release Health/Anxiety
divalproex 500 mg tablet,delayed 500 mg PO DAILY Mental 04/12/21 03/29/24 03/28/24 History
release Health/Anxiety
acetaminophen 650 mg 1,300 mg PO Q8HPRN PRN mild pain 03/29/24 03/29/24 03/29/24 History
tablet,extended release
bupropion HCl 200 mg tablet,12 hr 200 mg PO DAILY Mental 03/29/24 03/29/24 03/28/24 History
sustained-release Health/Anxiety
isosorbide mononitrate 60 mg 60 mg PO DAILY Heart 03/29/24 03/29/24 03/28/24 History
tablet,extended release 24 hr Disease/Condition
lamotrigine 100 mg tablet 100 mg PO DAILY Mental 03/29/24 03/29/24 03/28/24 History
Health/Anxiety
metformin 500 mg tablet 500 mg PO DAILY Diabetes 03/29/24 03/29/24 03/28/24 History
quetiapine 400 mg tablet,extended 400 mg PO HS Mental Health/Anxiety 03/29/24 03/29/24 03/28/24 History
release 24 hr
trazodone 100 mg tablet 100 mg PO HS Mental Health/Anxiety 03/29/24 03/29/24 03/28/24 History
zolpidem 10 mg tablet 10 mg PO HS Sleep 03/29/24 03/29/24 03/28/24 History
Review of Systems
-
Unable to Obtain full review of systems at this time due to: Patient Intubation
Vitals / Labs / Diagnostic Testing
Vital Signs
Temp Pulse Resp BP Pulse Ox
97.9 F 74 19 123/89 96
04/04/24 06:23 04/04/24 06:00 04/04/24 06:23 04/04/24 05:58 04/04/24 06:23
Laboratory Results
04/04/24
03:44
APTT 81.9 H
Diagnostic Testing:
Physical Exam
-
HEENT: Normocephalic and Other (ET tube in place without secretions)
Cardiovascular: S1/S2
Respiratory: Non-Labored Respirations and Other (Chest tube in place without air leakage or excessive drainage)
GI: Soft and Distended (Obese)
Neurology: Other (Sedated on mechanical ventilation)
Skin: Warm
General: Respiratory Distress (n)
Assessment
-
Status post coronary artery bypass 04/04/2024
Postoperative mechanical ventilation
Postoperative anemia
Conditions present prior admission:
Coronary artery disease with prior stents
Former smoker-normal spirometry on 03/30/2024
Hyperlipidemia
Hypertension
Prediabetes
GERD
Bipolar disorder
Chronic insomnia
Obesity
Assessment and plan:
He Is doing well postop-currently on mechanical ventilation and appears comfortable.
ABG reviewed: Pending
Continue SIMV mode with no change
Spontaneous breathing trial per protocol once sedation wears off.
Anemia noted-no evidence of acute bleeding
Follow H&H serially
Hemodynamics -only on very low-dose Levophed.
Adequate urinary output and renal function
Wean off as able.
Chest tube with no excessive drainage-no air leak.
Chest x-ray reviewed: Pending
Remain nothing by mouth
Head of the bed elevation
Glycemic control per protocol
DVT prophylaxis when safe from the surgical perspective.
Critical care statement: A total of 31 minutes of critical care time was provided for this patient today. This includes management of unstable vital signs, evaluation of the patient at bedside, reviewing the patient's pertinent medical records
including ventilator settings, arterial blood gases, radiographs, microbiology, laboratory evaluations and discussion with primary team, critical care nursing, and respiratory therapy.
--- NOTE | 2024-04-04 13:34 | W.IMMPOSTOP ---
Addendum entered and electronically signed by Stepan Fernandes MD 04/04/24 15:24:
[id number]
Original Note:
Surgical Immed Post Op Note
-
CARDIAC SURGERY OPERATIVE NOTE:
Preoperative Dx:
LM CAD, Hx of prior PCI/stents
Premature CAD
Morbid Obesity (BMI 36.1)
NIDDM
HTN/HLD
Postoperative Dx:
Same
Procedures;
1) Median sternotomy
2) Takedown of DEBRA (narrow pedicle)
3) Takedown of JAS (skeletonized)
4) [id number] anastomosis
5) CABG x 2 (DEBRA to LAD; 'Y' fRITA to OM)
Surgeon:
Stepan Fernandes M.D.
Assistants:
Shannan Tang P.A.-C.; first coat sander throughout, closure
Nga Live P.A.-C.; [id number] closure
Anesthesia:
Marshal Andre M.D. and Kong CoyN.A.
Perfusion:
Ana Cristina PabonCFredyPFredy; XC: 68min, CPB: 125min
Findings:
DEBRA was healthy appearing conduit - normal bill, very brisk blood flow; ELD 2.5mm
JAS was healthy appearing conduit - normal bill, very brisk blood flow; ELD 2.5mm
Pt's diaphragm was quite elevated (@ level of nipples) and his ascending aorta was very truncated.
DEBRA to JAS anastomosis performed at level of main PA just as DEBRA entered mediastinum; brisk from from both JAS and DEBRA distally
OM was visible on the epicardial surface, this vessel had profoundly friable bill; ELD 1.5. During initial anastomosis; lateral and heel sutures tore completely through vessel wall with very light manipulation. Anastomosis taken down and
reperformed over 1.0mm shunt with limited parachute technique. 1 repair stitch placed a heel of completed anastomosis. Good flow visually and on intraoperative U/S assessment
LAD was visible on the epicardial surface, this vessel also had profoundly friable bill w/ dense scattered calcifications; ELD 1.75mm. Brisk blood flow visually and on interoperative U/S assessment
Complications:
None significant; see findings
Transfusions:
None
Condition:
Stable/guarded to CVICU
81 sinus w/ isoelectric STs, 106/70, CVP 14. 99%
GTTS: levophed 4, insulin 1, precedex 0.5
[2024-04-04 14:18] LABS: Glucose - Point of Care 151 mg/dl (70-99)
[2024-04-04 14:20] LABS: Hematocrit 31.6 % (39.0-52.0); Hemoglobin 10.8 g/dL (13.0-18.0); Platelet Count 132 10^3/uL (130-400)
[2024-04-04 14:22] LABS: B.E. -3.6 mmol/L; HCO3 23.1 mmol/L (21-28); Ionized Calcium 1.24 mMOL/L (1.15-1.33); O2 Saturation % 99.3 % (94-98); PCO2 48 mmHg (35-48); PO2 129 mmHg (83-108); Sodium 135 mMOL/L (136-145); pH 7.29 (7.35-7.45)
[2024-04-04 14:30] LABS: INR 1.32; PT 16.5 Sec (11.4-14.6)
[2024-04-04 14:31] LABS: APTT 28.5 Sec (23.4-35.0)
--- NOTE | 2024-04-04 14:34 | PTCARENOTE ---
received pt from the cvor into 2265, sinus rhythm on tele w HR 80's, right radial dk leveled and zeroed, BP 118/75, CVP 11. Pt orally intubated #8 ETT/ 24 cm at the right lip. VENT SETTINGS: 60%/550/14/+5, pox 94-98%. Right IJ cordis w slick
intact. CT x4 w minimal amount of red drainage. Sim draining yellow. Routine EKG, CXR and labs completed.
DRIPS: Levophed 1-2mcg
Precedex 0.5mcg
Insulin titrated oer glycemic
[2024-04-04 14:38] LABS: Blood Urea Nitrogen 12 mg/dl (9-20); Estimated Creatinine Clearance 117 ml/min; Glucose 150 mg/dl (70-99); Magnesium 2.4 mg/dl (1.6-2.3)
[2024-04-04] MEDS: ALBUMIN 5% 250 IV (14:45)
[2024-04-04] MEDS: NSS 500 IV (14:47)
[2024-04-04] MEDS: LAMICTAL PO (14:48)
[2024-04-04] MEDS: WELLBUTRIN SR (12 hour sustained release) PO (14:48)
[2024-04-04] MEDS: NOVOLOG FLEXPEN SC ×2 (14:48→16:51)
[2024-04-04] MEDS: KLONOPIN PO ×2 (14:48→21:31)
[2024-04-04] MEDS: TYLENOL PO (14:49)
[2024-04-04] MEDS: DEPAKOTE (12 HR RELEASE) PO (14:49)
[2024-04-04] MEDS: ANCEF 10 IV ×2 (14:49)
[2024-04-04 15:12] LABS: Glucose - Point of Care 152 mg/dl (70-99)
[2024-04-04] MEDS: IMDUR (EXTENDED RELEASE) PO (15:27)
[2024-04-04] MEDS: NOVOLOG FLEXPEN-LOW RESISTANCE SC ×2 (15:27)
[2024-04-04] MEDS: NSS (PRESERVATIVE FREE) IV (15:28)
[2024-04-04] MEDS: PROTONIX IV IV (15:28)
[2024-04-04 16:21] LABS: Glucose - Point of Care 138 mg/dl (70-99)
[2024-04-04] MEDS: PACERONE PO (16:51)
[2024-04-04 17:07] LABS: Glucose - Point of Care 147 mg/dl (70-99)
--- NOTE | 2024-04-04 17:53 | PTCARENOTE ---
CHG bath and mouth care completed. Pt able to open eyes and follow commands. Awaiting RT for CPAP trial.
[2024-04-04 18:12] LABS: Hematocrit 32.3 % (39.0-52.0); Hemoglobin 11.1 g/dL (13.0-18.0); Platelet Count 154 10^3/uL (130-400)
[2024-04-04 18:40] LABS: Glucose - Point of Care 153 mg/dl (70-99)
[2024-04-04 18:43] LABS: B.E. -2.4 mmol/L; HCO3 24.2 mmol/L (21-28); O2 Saturation % 95.6 % (94-98); PCO2 48 mmHg (35-48); PO2 74 mmHg (83-108); Potassium 5.6 mMOL/L (3.5-5.1); Sodium 133 mMOL/L (136-145); pH 7.31 (7.35-7.45)
[2024-04-04 19:37] LABS: B.E. -4.8 mmol/L; HCO3 20.5 mmol/L (21-28); Ionized Calcium 1.11 mMOL/L (1.15-1.33); PCO2 38 mmHg (35-48); PO2 91 mmHg (83-108); Potassium 4.8 mMOL/L (3.5-5.1); Sodium 135 mMOL/L (136-145); pH 7.34 (7.35-7.45)
--- NOTE | 2024-04-04 19:37 | PTCARENOTE ---
Assumed care of patient at 1900. Patient found resting in bed at time of assessment. Patient is still intubated at this time on CPAP PSV, patient is alert, follows commands appropriately, moves all extremities. Patient is noticeably drowsy. Lung
sounds are diminished throughout, CPAP PSV settings as follows PSV 5 PEEP 5 FiO2 40% pPeak 12 Rrate 20 TV 350-500. saO2 at this time is 95%. Patient has CTx4: R/L pleural to one atrium and medsx2 with red sanguineous drainage. Heart sounds have a
regular rate and rhythm, patient is SR on the monitor, patient normal palpable L radial and a weak but palpable R radial pulse. Patient has weak but palpable dorsalis pedis pulses. Trace pedal edema is noted. Patient has round obese abdomen with
hypoactive BS throughout. There is a larios in place draining clear yellow urine. Patient has sternal incision with aquacell dressing that is CDI and ABD dressing over CT wounds that is CDI. Patient has R IJ cordis with slic, R radial dk, 20G PIV
in R wrist and 20G PIV in L hand. Patient is receiving insulin gtt at 3.5, Cordis KVO, and VIP KVO. Vital signs as follows: T-99.5 P-96 BP-114/70 MAP-89 CVP-11. Patient's ABG at change of shift not suitable for extubation CT CEPHALOMETRIC TECHNICIAN notified will recheck
ABG in 30 minutes ventilator settings to remain unchanged. No c/o pain from patient. Will continue to monitor.
[2024-04-04 19:38] LABS: Glucose - Point of Care 150 mg/dl (70-99)
[2024-04-04] MEDS: OFIRMEV 100 IV (19:55)
[2024-04-04] MEDS: CALCIUM CHLORIDE 10% SYRINGE 50 ML IV (20:13)
[2024-04-04] MEDS: CALCIUM CHLORIDE 10% SYRINGE 50 MG IV (20:13)
[2024-04-04 20:31] LABS: Glucose - Point of Care 187 mg/dl (70-99)
[2024-04-04] MEDS: ANCEF 5 IV (20:31)
--- NOTE | 2024-04-04 21:00 | PTCARENOTE ---
Patient successfully extubated at 2039 without incident. Patient able to successfully answer all orientation questions. iCa repleted. Patient given ofirmevx1 for pain. R/L pleural pleuravac changed due to inadequate suction. Patient is stable at
this time.
[2024-04-04] MEDS: DILAUDID 0.25 MG IV (21:22)
[2024-04-04] MEDS: SENOKOT-S PO (21:31)
[2024-04-04 21:32] LABS: Glucose - Point of Care 118 mg/dl (70-99)
[2024-04-04] MEDS: LOW STRENGTH ASPIRIN 81 MG PO (22:01)
[2024-04-04 22:33] LABS: Glucose - Point of Care 119 mg/dl (70-99)
--- NOTE | 2024-04-04 22:40 | PTCARENOTE ---
Patient hypertensive c/o 04/01 pain. Given 0.25 dilaudid without relief. On reassessment patient has 08/[address] PA notified. Toradol ordered and administered. Advised to start cardene at 2.5.
[2024-04-04] MEDS: TORADOL 15 MG IV (22:47)
--- NOTE | 2024-04-04 23:20 | PTCARENOTE ---
Patient blood pressure has stabilized no longer in pain. However desatting 87-90% at this time. CT PA notified. Contacted RT to possible start midflow.
--- NOTE | 2024-04-04 23:29 | PTCARENOTE ---
Patient placed on 8L via midflow NC by RT. SaO2 improved to 93%
[2024-04-04 23:34] LABS: Glucose - Point of Care 111 mg/dl (70-99)
[2024-04-04] MEDS: LIPITOR 80 MG PO (23:39)
[2024-04-04] MEDS: DESYREL PO (23:39)
[2024-04-04] MEDS: DEPAKOTE (12 HR RELEASE) 1000 MG PO (23:39)
[2024-04-04] MEDS: TYLENOL 1000 MG PO (23:40)
[2024-04-04] MEDS: PACERONE 200 MG PO (23:40)
[2024-04-05] VITALS (31 sets, daily range): BP systolic 89–154; BP diastolic 51–106; PULSE 87; O2SAT 96–97; BMI 36.2
--- NOTE | 2024-04-05 | PTCARENOTE ---
Patient reassessed. Patient is SR on the monitor. Only on insulin and KVO at this time. No c/o pain patient sleeping soundly. Remains on 8L via midflow NC saO2 at 93%.
[2024-04-05 00:39] LABS: Glucose - Point of Care 95 mg/dl (70-99)
[2024-04-05] MEDS: ROXICODONE 5 MG PO ×4 (02:27→20:43)
[2024-04-05 02:34] LABS: Glucose - Point of Care 105 mg/dl (70-99)
[2024-04-05] MEDS: DILAUDID 0.25 MG IV ×3 (03:15→23:57)
--- NOTE | 2024-04-05 03:27 | PTCARENOTE ---
Patient c/o 6/10 pain at approx 0230 given Alfreda 5 for pain. Thirty minutes later patient without relief c/o severe 10/10 pain writhing in bed and moaning. Given 0.25 dilaudid which appears to have provided relief at this time. Will continue to
monitor for pain exacerbations.
[2024-04-05 03:53] LABS: Hemoglobin 10.8 g/dL (13.0-18.0); Mean Corp Hgb Conc. 32.7 g/dL (33.0-37.0); Mean Corpuscular Hgb 29.3 pg (27.0-31.0); Mean Corpuscular Volume 89.4 fL (80.0-94.0); Mean Platelet Volume 10.2 fL (7.4-10.4); Platelet Count 181 10^3/uL (130-400); Red Blood Cell Count 3.69 10^6/uL (4.70-6.10); Red Cell Dist. Width 14.4 % (11.5-14.5); White Blood Cell Count 18.9 10^3/uL (4.8-10.8)
[2024-04-05] MEDS: ANCEF 5 IV ×2 (04:07→11:56)
[2024-04-05] MEDS: FLEXERIL 5 MG PO ×2 (04:16→14:48)
[2024-04-05 04:19] LABS: Blood Urea Nitrogen 14 mg/dl (9-20); Calcium 9.4 mg/dl (8.4-10.2); Carbon Dioxide 25 mmol/L (22-30); Chloride 106 mmol/L (98-107); Estimated Creatinine Clearance 117 ml/min; Glucose 105 mg/dl (70-99); Magnesium 1.9 mg/dl (1.6-2.3); Sodium 138 mmol/L (135-145); eGFR > 60.00
[2024-04-05] MEDS: TORADOL 15 MG IV ×4 (04:34→23:10)
--- NOTE | 2024-04-05 04:41 | W.PN.CT ---
Today's Communication / Plan
-
-pod #1
-no significant issues overnight. C/o incisional pain - some relief with Dilaudid and Toradol
-drips: insulin
-CT output: 2 meds 185/280, 2 pleur 160/195 in 12/24 hrs
-d/c slic and a-line
-d/c Sim
-continue insulin
-current meds (ASA, Plavix, Lipitor, Lopressor, Amio, Protonix)
-encourage IS, OOB
Assessment / Plan
-
Assessment:
-CAD including 50-60% mid LM- s/p CABG x 2 (DEBRA to LAD; to OM) on 04/04/[address] Fernandes, pod #1
-NSTEMI (peak trop 0.20)
-Unstable Angina
-Hx CAD S/P PCI with SHANA to RCA and LCx 07/2016; mid LAD 07/2017; high-grade ostial OM2 03/2021 (all patent per cath 03/29)
-Plavix washout, last dose 03/29
-LVEF 55-60%
-No significant valvular disease
-HTN
-HLD
-T2DM (A1C 7.4)
-Class 2 obesity (BMI 36)
-Probable COLETTE
-Bipolar disorder
-Anxiety disorder
-S/P Repair of undescended testes
-Acute postop blood loss anemia- stable
-Acute postop atelectasis
-Acute postop 1st degree AVB
-Acute postop hyperkalemia - improved
-Acute postop hypovolemia with subsequent hypervolemia
Discussed patient care with: Nursing and Care Team
Subjective
Procedure
s/p CABG x 2 (DEBRA to LAD; to OM) on 04/04/[address] Fernandes
-
Date of Service: April 05, 2024
Objective Data
-
PT 16.5 Sec (11.4-14.6) H 04/04/24 14:06
INR 1.32 04/04/24 14:06
APTT 28.5 Sec (23.4-35.0) 04/04/24 14:06
Vital Signs
Vital Signs
Temp Pulse Resp BP Pulse Ox
99.6 F 84 28 100/54 99
04/05/24 02:00 04/05/24 02:00 04/05/24 02:00 04/05/24 02:00 04/05/24 02:00
CT Intake/Output/Weight
04/04/24 04/04/24 04/05/24
06:59 18:59 06:59
Intake Total 192 / 192 404.5 / 592.7 188.2 / 592.7
Output Total 1255 / 2335 1080 / 2335
Balance 192 / 192 -850.5 / -1742.3 -891.8 / -1742.3
SaO2: 99
Physical Exam
-
General: Awake and AOx3
Cardiovascular: Regular rate & rhythm, No Murmurs and No Rub
Respiratory: Decreased Breath Sounds
Sternum: Stable
Incision: Clean, Dry and Intact
Extremities: No Edema (2+DP b/l)
Data Reviewed
-
Lab Results: Results Reviewed
Medications: Active Meds Reviewed
Chest X-Ray: Report Reviewed and Image Reviewed
ECG: Report Reviewed and Image Reviewed
[2024-04-05 04:42] LABS: Glucose - Point of Care 105 mg/dl (70-99)
--- NOTE | 2024-04-05 05:22 | PTCARENOTE ---
Patient delined. Sim removed. AM labs obtained. AM EKG obtained. Patient stable at this time.
[2024-04-05] MEDS: TYLENOL 1000 MG PO ×3 (06:08→22:28)
[2024-04-05 06:41] LABS: Glucose - Point of Care 116 mg/dl (70-99)
[2024-04-05] MEDS: NOVOLOG FLEXPEN SC ×2 (07:18→11:11)
--- NOTE | 2024-04-05 07:20 | PN.DE.MGMTRT ---
Insulin Management
- -
04/05/2024 Diabetes Management Consult
Patient admitted 03/29 with chest pain. Had cardiac cath. H CAD, ACS/unstable angina @ NSTEMI, bipolar, HLD, HTN, GERD, type 2 diabetes, obesity.
Prior to admission was taking metformin 500 mg BID. A1C 7.4%, cr 1, eGFR > 60.
Patient is POD 1 S/P CABG x 2. Currently on glycemic protocol insulin infusion, Will continue today. To be assessed for readiness to transition POD 2.
Diabetes History
- -
Type of Diabetes: 2
Pre-Admission Diabetes Regimen
04/04/24 04/05/24
14:06 03:23
Creatinine 0.9 0.9
Lab Results
Hemoglobin A1c 7.4 % (4.0-5.6) H 03/29/24 14:20
Insulin Pump Settings
IP Diabetes Regimen
04/04/24 04/04/24 04/04/24
14:06 14:11 15:11
Glucose 150 H
POC Glucose 151 H 152 H
04/04/24 04/04/24 04/04/24
16:19 17:06 18:38
Glucose
POC Glucose 138 H 147 H 153 H
04/04/24 04/04/24 04/04/24
19:35 20:29 21:28
Glucose
POC Glucose 150 H 187 H 118 H
04/04/24 04/04/24 04/05/24
22:30 23:31 00:32
Glucose
POC Glucose 119 H 111 H 95
04/05/24 04/05/24 04/05/24
02:32 03:23 04:40
Glucose 105 H
POC Glucose 105 H 105 H
04/05/24
06:30
Glucose
POC Glucose 116 H
Patient Education
[2024-04-05 08:01] LABS: Glucose - Point of Care 116 mg/dl (70-99)
--- NOTE | 2024-04-05 08:05 | W.PN.ANS.POP ---
Anesthesia Post Operative
- Anesthesia Post Op Note
Vital Signs Stable-See Nursing Note: Yes
Airway Patent: Yes
Adequate Pain Control: Yes
Change in Mental Status: No
Current Postoperative Nausea & Vomiting: No
Anesthesia Complications: No
General Anesthetic Recall: No
Unplanned Admission: No
Post Op Hydration Adequate: Yes
--- NOTE | 2024-04-05 08:18 | W.PN.CD ---
Today's Communication / Plan
-
Routine post operative management.
Incentive spirometry.
Ambulate.
Chest tube/pain management per CT surgery.
Impression / Plan
-
Impression/Plan: 53 y/o male with HTN, HLD, NIDDM and prior CAD with PCI of the RCA/LCx/LAD now admitted with NSTEMI.
#NSTEMI
-Acute. Pain exacerbated overnight, relieved with SL nitro.
-Troponin peaked at 0.200.
-Cardiac catheterization shows severe LMCA disease (MLA 4.5 mm2 on IVUS). Prior SHANA to RCA, LCX, mid LAD and ostial OM2 (2020), all stable on cardiac catheterization.
-Has not been seen in the office for quite some time. There is suspicion for non-compliance.
-S/P CABG x2 (ORTIZ to LAD, free LAKESHA Y-graft from ORTIZ to OM), 04/04/2024 (Dr. Fernandes).
-Expectant post operative management.
-Continue aspirin, atorvastatin, heparin and metoprolol.
#HTN
-Chronic, stable.
-Restart anti-hypertensives as BP normalizes.
#HLD
-Chronic.
-Total cholesterol = 163, LDL = 74, HDL = 40, Triglycerides = 246.
-Goal LDL < 55.
-Continue atorvastatin and ezetimibe.
-Repeat lipid panel in 3 months. He may need PCSK9i and/or icosapent ethyl.
#GERD
-New diagnosis.
-Chest pain resolved with addition of PPI.
-Maintain pantoprazole at this time. Transition to famotidine as an outpatient.
#NIDDM
-Chronic, stable.
-HbA1c pending.
-Metformin on hold given recent cath.
-SSI per hospitalist.
-He would benefit from GLP1 analog (Diabetes + CAD + obesity).
#Anxiety
-Chronic, stable.
-Continue meds per hospitalist.
Subjective/Interval History:
Patient de-lined.
Weight is up 0.3 kg.
DATA:
Cardiac Catheterization, 03/29/2024:
CONCLUSIONS
1. Right dominant circulation with a hemodynamically significant 58-60%, hazy mid left main coronary artery lesion, patent stents in the LAD, circumflex and OM1 and proximal RCA, all without in-stent restenosis and minor luminal irregularities.
2. Top normal to mildly elevated filling pressures (LVEDP = 16 mmHg at 123.8 kg).
3. Diabetes mellitus.
TTE, 03/29/2024:
CONCLUSIONS
LV ejection fraction is 55-60% by visual assessment. No regional wall motion
abnormalities are seen.
Normal right ventricular size and function.
No significant valvular disease.
No significant change since the prior study of 12/26/2019.
Physical Exam
Vital Signs/Labs
Vital Signs
Temp Pulse Resp BP Pulse Ox
37.6 C 90 22 112/78 98
04/05/24 06:00 04/05/24 08:00 04/05/24 07:00 04/05/24 08:00 04/05/24 07:16
04/03/24 04/04/24 04/05/24
11:59 11:59 11:59
Actual Weight 111.5 kg 110.9 kg 111.2 kg
04/05/24 03:23
04/05/24 03:23
PT 16.5 Sec (11.4-14.6) H 04/04/24 14:06
INR 1.32 04/04/24 14:06
APTT 28.5 Sec (23.4-35.0) 04/04/24 14:06
Magnesium 1.9 mg/dl (1.6-2.3) 04/05/24 03:23
Triglycerides 246 mg/dl (10-149) H 03/30/24 05:31
LDL Cholesterol, Calc 74 mg/dl 03/30/24 05:31
VLDL Cholesterol, Calc 49 mg/dl (0-30) H 03/30/24 05:31
HDL Cholesterol 40 mg/dl 03/30/24 05:31
Physical Exam
Constitutional: No acute distress and Comfortable
EENT: Anicteric and Moist mucous membranes
Cardiovascular: Rhythm & rate is regular, Pedal edema is absent, JVD pressure is normal, S1S2 is normal and Murmur/rub/gallop absent
Respiratory: Respiratory effort normal, Lungs clear to auscul., Wheeze Absent, Crackles Absent and Rhonchi Absent
GI: Soft, Distention absent, Flat, Non tender and Normal bowel sounds
Neuro/Psych: AO x 3
Data Reviewed
-
Date of Service: April 05, 2024
Medical Decision Making: Reviewed Test Results, Independent Historian Assessment, Test Interpretation and Review of Case with other Provider
EKG: Tracing Personally Visualized and interpreted and Report Reviewed by me
Echo: Tracing Personally Visualized and interpreted and Report Reviewed by me
X-Ray/CT/US/MRI/NUC/PET: Image Personally Visualized and interpreted, Report Reviewed by me and Discussed with Physician
Medical Tests (PFT, Pathology etc): Image Personally Visualized and interpreted, Report Reviewed by me and Discussed with Physician
Labs: Labs Reviewed by me
Old Records: Reviewed
[2024-04-05] MEDS: BACTROBAN 2% OINTMENT 1 APPLIC NASAL ×2 (08:39→20:41)
[2024-04-05] MEDS: PROTONIX 40 MG PO (08:39)
[2024-04-05] MEDS: LIDOCAINE 4% PATCH 1 PATCH TOPICAL (08:39)
[2024-04-05] MEDS: LOPRESSOR 12.5 MG PO ×2 (08:39→20:41)
[2024-04-05] MEDS: SENOKOT-S 1 TABLET PO ×2 (08:39→20:42)
[2024-04-05] MEDS: PLAVIX 75 MG PO (08:40)
[2024-04-05] MEDS: LOW STRENGTH ASPIRIN 81 MG PO (08:40)
[2024-04-05] MEDS: WELLBUTRIN SR (12 hour sustained release) 200 MG PO (08:40)
[2024-04-05] MEDS: LAMICTAL 100 MG PO (08:40)
[2024-04-05] MEDS: MAGNESIUM OXIDE 500 MG PO ×2 (08:40→20:42)
[2024-04-05] MEDS: PACERONE 200 MG PO ×3 (08:41→22:28)
[2024-04-05] MEDS: DEPAKOTE (12 HR RELEASE) 500 MG PO (08:41)
[2024-04-05] MEDS: KLONOPIN 1 MG PO ×2 (08:41→20:41)
--- NOTE | 2024-04-05 09:48 | PTCARENOTE ---
Patient received from night monitor resting oob in chair, AAO x 3, states pain better controlled at this time after Toradol administration. RIJ Cordis w/kvo infusing. Mediastinal chest tubes x 2, R and L pleural chest tubes, to two separate pleurevacs
- to -20cm suction w/no air leaks noted. All procedural sites stable. Insulin infusing peripherally, titrating per glycemic protocol. Patient updated to plan of care for the day, in agreement. See work list for full assessment and interventions
performed.
[2024-04-05] MEDS: NSS IV (10:03)
[2024-04-05 10:22] LABS: Glucose - Point of Care 125 mg/dl (70-99)
[2024-04-05] MEDS: NOVOLIN R INSULIN INFUSION 100 IV (11:25)
[2024-04-05 12:00] LABS: Glucose - Point of Care 98 mg/dl (70-99)
--- NOTE | 2024-04-05 12:12 | PTCARENOTE ---
VS stable, assessment unchanged. Patient resting comfortably. S/O at bedside.
[2024-04-05 13:00] LABS: Glucose - Point of Care 112 mg/dl (70-99)
[2024-04-05] MEDS: NOVOLOG FLEXPEN 4 UNITS SC ×2 (13:24→18:04)
--- NOTE | 2024-04-05 14:02 | W.PN.INTV ---
Today's Communication / Plan
Recommendations
Continue postoperative care
Increase activity as able
Follow chest tube output
Advance diet
Continue cardiac management
Sign off
Assessment
-
Status post coronary artery bypass 04/04/2024
Postoperative mechanical ventilation
Postoperative anemia
Conditions present prior admission:
Coronary artery disease with prior stents
Former smoker-normal spirometry on 03/30/2024
Hyperlipidemia
Hypertension
Prediabetes
GERD
Bipolar disorder
Chronic insomnia
Obesity
Assessment and plan:
Postoperative day 1
Extubated on low rate supplemental oxygen
Incisional pain noted
Continue narcotics as needed for pain control
Incentive spirometry as able
Increase activity per protocol
Anemia noted-no evidence of acute bleeding
Follow H&H serially
Hemodynamically stable off vasopressors
Normal renal function
Chest tube management per primary team. No excessive drainage.
Chest x-ray reviewed: Low lung volumes. No collections or pneumothorax.
Advance diet as tolerated per
Head of the bed elevation
Glycemic control per protocol
Recommended sleep apnea evaluation in the future.
DVT prophylaxis when safe from the surgical perspective.
Patient has been transferred to telemetry.
Critical care team will sign off.
Subjective Dataa
Subjective Data
Date of Service:
Date of Service: April 05, 2024
Chief Complaint: [employer] Follow Up (Status post coronary artery bypass)
Subjective:
Complaining of some incisional pain
Extubated on low rate supplemental oxygen
No major events overnight
Review of Systems
General: Fever (n)
Cardiopulmonary: Dyspnea (n)
GI: Abdominal Pain (n) and Nausea (n)
Neuro: Headache (n)
Objective Data
Data Reviewed
Vital Signs / I&O / Oxygen:
Vital Signs
Temp Pulse Resp BP Pulse Ox
98.6 F 88 21 114/57 97
04/05/24 12:00 04/05/24 13:00 04/05/24 12:00 04/05/24 12:00 04/05/24 12:25
Intake and Output
04/04/24 04/05/24 04/06/24
06:59 06:59 06:59
Intake Total 192 / 192 674.7 / 688.2 556.7 / 556.7
Output Total 2640 / 2660 120 / 120
Balance 192 / 192 -1965.3 / -1971.8 436.7 / 436.7
SaO2 [CPAP] 95
SaO2 [SIMV] 97
SaO2 97
Nasal Cannula flow liters per 4
minute
Physical Exam
General: Respiratory Distress (n) and Comfortable
HEENT: Normocephalic
Cardiovascular: S1-S2
Respiratory: Clear, Non-Labored Respirations and Chest Tube (No excessive drainage)
GI: Soft and Non Distended
Neurology: Awake, Alert, Oriented and No Motor Deficits
Labs/Micro/Reports
Lab Data
04/05/24 03:23
04/05/24 03:23
Laboratory Results
04/04/24 04/04/24 04/04/24
14:06 18:38 19:31
PT 16.5 H
INR 1.32
APTT 28.5
pH 7.29 L 7.31 L 7.34 L
pCO2 48 48 38
pO2 129 H 74 L 91
HCO3 23.1 24.2 20.5 L
O2 Delivery Level
[2024-04-05] MEDS: MUCINEX 600 MG PO ×2 (14:47→20:42)
[2024-04-05 14:55] LABS: Glucose - Point of Care 137 mg/dl (70-99)
[2024-04-05 16:52] LABS: Glucose - Point of Care 98 mg/dl (70-99)
[2024-04-05] MEDS: VENTOLIN NEBULES 2.5 MG INH ×2 (17:13→21:47)
[2024-04-05 18:03] LABS: Glucose - Point of Care 86 mg/dl (70-99)
[2024-04-05 20:29] LABS: Glucose - Point of Care 115 mg/dl (70-99)
--- NOTE | 2024-04-05 21:30 | PTCARENOTE ---
Patient received resting in bed watching television. Patient's girlfriend at bedside. Patient A+A+Ox3. No neurological deficits noted. Mildly anxious. Pain management - Roxicodone 5mg PO. O2 at 3L via NC. SaO2 96%. Occasional productive
cough. Four chest tubes - Mediastinal x2 and Right and Left Pleural - Intact and patent - 10-20 ml red drainage - No air leak, tidaling or crepitus noted. Chest tube dressing intact. Sinus Rhythm. Heart rate 90's. Blood pressure 114/63 (77).
No c/o chest pain, pressure or discomfort. Abdomen round, soft, nontender. Normoactive bowel sounds. No urge to void. Bladder scan 430 ml. Straight cath for 500 ml demario urine without difficulty. No BM. No c/o nausea. No vomiting. Patient
with no c/o back or flank pain. Sternal Aquacell dressing intact. Right I.J. Cordis - Intact and patent - Saline flush 10 ml/hr. Insulin gtt - Glycemic Protocol. Assessment as documented.
[2024-04-05 22:15] LABS: Glucose - Point of Care 100 mg/dl (70-99)
[2024-04-05] MEDS: DEPAKOTE (12 HR RELEASE) 1000 MG PO (22:27)
[2024-04-05] MEDS: LIPITOR 80 MG PO (22:28)
[2024-04-05] MEDS: DESYREL 100 MG PO (22:28)
[2024-04-05] MEDS: FLOMAX 0.400000000000000022 MG PO (23:48)
[2024-04-05 23:52] LABS: Glucose - Point of Care 101 mg/dl (70-99)
[2024-04-06] VITALS (14 sets, daily range): BP systolic 86–154; BP diastolic 50–103; PULSE 91; O2SAT 95–99; BMI 36.5
--- NOTE | 2024-04-06 00:30 | PTCARENOTE ---
Patient resting in bed. Pain management with Toradol and IV Dilaudid - Positive relief provided. Flomax 0.4 mg PO ordered and administered without difficulty. Patient requested breathing treatment - Respiratory therapist administered Ventolin 2.5
mg Neb. No further changes from previous assessment.
[2024-04-06 02:07] LABS: Glucose - Point of Care 112 mg/dl (70-99)
[2024-04-06] MEDS: DILAUDID 0.5 MG IV (02:10)
[2024-04-06] MEDS: NSS 500 IV (04:00)
[2024-04-06 04:05] LABS: Glucose - Point of Care 93 mg/dl (70-99)
[2024-04-06] MEDS: ROXICODONE 5 MG PO ×3 (04:29→20:18)
--- NOTE | 2024-04-06 04:30 | PTCARENOTE ---
Patient dozing intermittently. No urge to void at this time. AM lab work collected and sent. OOB to chair in AM. Assessment/Interventions as documented.
[2024-04-06 04:31] LABS: Hematocrit 28.6 % (39.0-52.0); Hemoglobin 9.4 g/dL (13.0-18.0); Mean Corp Hgb Conc. 32.9 g/dL (33.0-37.0); Mean Corpuscular Hgb 29.7 pg (27.0-31.0); Mean Corpuscular Volume 90.5 fL (80.0-94.0); Mean Platelet Volume 9.8 fL (7.4-10.4); Platelet Count 131 10^3/uL (130-400); Red Blood Cell Count 3.16 10^6/uL (4.70-6.10); Red Cell Dist. Width 14.8 % (11.5-14.5); White Blood Cell Count 13.7 10^3/uL (4.8-10.8)
[2024-04-06 04:54] LABS: Blood Urea Nitrogen 15 mg/dl (9-20); Calcium 9.1 mg/dl (8.4-10.2); Carbon Dioxide 28 mmol/L (22-30); Chloride 103 mmol/L (98-107); Estimated Creatinine Clearance 117 ml/min; Glucose 86 mg/dl (70-99); Magnesium 2.2 mg/dl (1.6-2.3); Potassium 4.3 mmol/L (3.5-5.1); Sodium 138 mmol/L (135-145); eGFR > 60.00
[2024-04-06] MEDS: TORADOL 15 MG IV (05:20)
[2024-04-06] MEDS: TYLENOL PO (05:22)
[2024-04-06 05:56] LABS: Glucose - Point of Care 119 mg/dl (70-99)
--- NOTE | 2024-04-06 06:43 | W.PN.CT ---
Today's Communication / Plan
-
-pod #2
-urinary retention, straight cath for 500 last night - started Flomax
-CT output: 2 meds 90/220, 2 pleur 40/90 in 12/24 hrs
-continue current meds
-encourage IS, OOB
Assessment / Plan
-
Assessment:
-CAD including 50-60% mid LM- s/p CABG x 2 (DEBRA to LAD; to OM) on 04/04/[address] Fernandes, pod #2
-NSTEMI (peak trop 0.20)
-Unstable Angina
-Hx CAD S/P PCI with SHANA to RCA and LCx 07/2016; mid LAD 07/2017; high-grade ostial OM2 03/2021 (all patent per cath 03/29)
-Plavix washout, last dose 03/29
-LVEF 55-60%
-No significant valvular disease
-HTN
-HLD
-T2DM (A1C 7.4)
-Class 2 obesity (BMI 36)
-Probable COLETTE
-Bipolar disorder
-Anxiety disorder
-S/P Repair of undescended testes
-Acute postop blood loss anemia- stable
-Acute postop atelectasis
-Acute postop 1st degree AVB
-Acute postop hyperkalemia - improved
-Acute postop hypovolemia with subsequent hypervolemia
-Acute postop urinary retention
Discussed patient care with: Nursing and Care Team
Subjective
Procedure
s/p CABG x 2 (DEBRA to LAD; to OM) on 04/04/[address] Fernandes
-
Date of Service: April 06, 2024
Objective Data
-
Lab Results
04/06/24 04:19
04/06/24 04:19
PT 16.5 Sec (11.4-14.6) H 04/04/24 14:06
INR 1.32 04/04/24 14:06
APTT 28.5 Sec (23.4-35.0) 04/04/24 14:06
Vital Signs
Vital Signs
Temp Pulse Resp BP Pulse Ox
98.9 F 108 18 113/77 96
04/06/24 04:00 04/06/24 06:15 04/06/24 04:00 04/06/24 04:00 04/06/24 05:30
CT Intake/Output/Weight
04/05/24 04/05/24 04/06/24
06:59 18:59 06:59
Intake Total 270.2 / 688.2 847.8 / 1474.3 626.5 / 1474.3
Output Total 1385 / 2660 180 / 810 630 / 810
Balance -1114.8 / -1971.8 667.8 / 664.3 -3.5 / 664.3
SaO2: 96
Physical Exam
-
General: Awake and AOx3
Cardiovascular: Regular rate & rhythm and No Murmurs
Respiratory: Decreased Breath Sounds
Sternum: Stable
Incision: Clean, Dry and Intact
Extremities: Edema +1
Data Reviewed
-
Lab Results: Results Reviewed
Medications: Active Meds Reviewed
Chest X-Ray: Report Reviewed and Image Reviewed
ECG: Report Reviewed and Image Reviewed
--- NOTE | 2024-04-06 07:47 | W.PN.CD ---
Today's Communication / Plan
-
-Postop care
-Beta-blockers continued.
-Chest tube removal as tolerated
Impression / Plan
-
Impression/Plan: 53 y/o male with HTN, HLD, NIDDM and prior CAD with PCI of the RCA/LCx/LAD now admitted with NSTEMI.
#NSTEMI status post coronary bypass graft.
-Cardiac catheterization shows severe LMCA disease (MLA 4.5 mm2 on IVUS). Prior SHANA to RCA, LCX, mid LAD and ostial OM2 (2020), all stable on cardiac catheterization.
-Has not been seen in the office for quite some time. There is suspicion for non-compliance.
-S/P CABG x2 (ORTIZ to LAD, free LAKESHA Y-graft from ORTIZ to OM), 04/04/2024 (Dr. Fernandes). Postop day #2
-Expectant post operative management.
-Likely chest tubes can be removed today
-Continue aspirin, atorvastatin, heparin and metoprolol.
#HTN
-Chronic, stable.
-Restart anti-hypertensives as BP normalizes.
#HLD
-Chronic.
-Total cholesterol = 163, LDL = 74, HDL = 40, Triglycerides = 246.
-Goal LDL < 55.
-Continue atorvastatin and ezetimibe.
-Repeat lipid panel in 3 months. He may need PCSK9i and/or icosapent ethyl.
#GERD
-New diagnosis.
-Chest pain resolved with addition of PPI.
-Maintain pantoprazole at this time. Transition to famotidine as an outpatient.
#NIDDM
-Chronic, stable.
-HbA1c pending.
-Metformin on hold given recent cath.
-SSI per hospitalist.
-He would benefit from GLP1 analog (Diabetes + CAD + obesity).
#Anxiety
-Chronic, stable.
-Continue meds per hospitalist.
Subjective/Interval History:
Patient de-lined. Chest tubes x [address]. Patient is feeling better. Out of the bed to chair
DATA:
Cardiac Catheterization, 03/29/2024:
CONCLUSIONS
1. Right dominant circulation with a hemodynamically significant 58-60%, hazy mid left main coronary artery lesion, patent stents in the LAD, circumflex and OM1 and proximal RCA, all without in-stent restenosis and minor luminal irregularities.
2. Top normal to mildly elevated filling pressures (LVEDP = 16 mmHg at 123.8 kg).
3. Diabetes mellitus.
TTE, 03/29/2024:
CONCLUSIONS
LV ejection fraction is 55-60% by visual assessment. No regional wall motion
abnormalities are seen.
Normal right ventricular size and function.
No significant valvular disease.
No significant change since the prior study of 12/26/2019.
Physical Exam
Vital Signs/Labs
Vital Signs
Temp Pulse Resp BP Pulse Ox
98.9 F 108 18 113/77 96
04/06/24 04:00 04/06/24 06:15 04/06/24 04:00 04/06/24 04:00 04/06/24 06:46
04/05/24 04/06/24 04/07/24
06:59 06:59 06:59
Actual Weight 111.2 kg 112 kg
04/06/24 04:19
04/06/24 04:19
PT 16.5 Sec (11.4-14.6) H 04/04/24 14:06
INR 1.32 04/04/24 14:06
APTT 28.5 Sec (23.4-35.0) 04/04/24 14:06
Magnesium 2.2 mg/dl (1.6-2.3) 04/06/24 04:19
Triglycerides 246 mg/dl (10-149) H 03/30/24 05:31
LDL Cholesterol, Calc 74 mg/dl 03/30/24 05:31
VLDL Cholesterol, Calc 49 mg/dl (0-30) H 03/30/24 05:31
HDL Cholesterol 40 mg/dl 03/30/24 05:31
Physical Exam
Constitutional: No acute distress and Comfortable
EENT: Anicteric and Moist mucous membranes
Cardiovascular: Rhythm & rate is regular, Pedal edema present, JVD present and Systolic murmur present
Respiratory: Respiratory effort normal, Wheeze Absent and Crackles Present
GI: Soft, Non tender and Normal bowel sounds
Neuro/Psych: Alert, Oriented and AO x 3
Data Reviewed
-
Date of Service: April 06, 2024
Medical Decision Making: Reviewed Test Results, Independent Historian Assessment, Test Interpretation and Review of Case with other Provider
EKG: Tracing Personally Visualized and interpreted
Echo: Report Reviewed by me
X-Ray/CT/US/MRI/NUC/PET: Image Personally Visualized and interpreted
Labs: Labs Reviewed by me
Old Records: Reviewed
Critical Care Time (in minutes): 31
[2024-04-06 07:57] LABS: Glucose - Point of Care 123 mg/dl (70-99)
--- NOTE | 2024-04-06 08:00 | PTCARENOTE ---
Received patient from prior shift. Pt assessment completed, see documentation in medical record. Pt education initiated about ISB use, cough and deep breathing with the heart pillow, mobility, nutrition, pain management, sternal precautions and rest
periods. Pt asked to demonstrate ISB, and patient education completed to correct technique. Pt demonstrated understanding of education using the teach back method. Proper technique with the incentive spirometer will be reinforced, and patient
instructed to use the ISB ten times per hour (minimum). Medication education including medication side effects provided for all 0800 medications prior to administering the meds. . Pt sitting in the chair and resting comfortably but complaining of
pain. Medication education will be reinforced throughout the day. IV site flushed and patent times two. Plan of care for the day discussed with the patient and his fiance.
[2024-04-06] MEDS: LIDOCAINE 4% PATCH 1 PATCH TOPICAL (08:10)
[2024-04-06] MEDS: WELLBUTRIN SR (12 hour sustained release) 200 MG PO (08:11)
[2024-04-06] MEDS: MAGNESIUM OXIDE 500 MG PO ×2 (08:11→20:18)
[2024-04-06] MEDS: PROTONIX 40 MG PO (08:11)
[2024-04-06] MEDS: FLOMAX 0.400000000000000022 MG PO (08:12)
[2024-04-06] MEDS: DEPAKOTE (12 HR RELEASE) 500 MG PO (08:13)
[2024-04-06] MEDS: LOW STRENGTH ASPIRIN 81 MG PO (08:13)
[2024-04-06] MEDS: LOPRESSOR 25 MG PO ×2 (08:13→20:18)
[2024-04-06] MEDS: SENOKOT-S 1 TABLET PO ×2 (08:13→20:19)
[2024-04-06] MEDS: PLAVIX 75 MG PO (08:13)
[2024-04-06] MEDS: KLONOPIN 1 MG PO ×2 (08:14→20:18)
[2024-04-06] MEDS: KCL 20 MEQ PO (08:14)
[2024-04-06] MEDS: LAMICTAL 100 MG PO (08:14)
[2024-04-06] MEDS: BACTROBAN 2% OINTMENT 1 APPLIC NASAL ×2 (08:15→20:19)
[2024-04-06] MEDS: LASIX 40 MG IV (08:15)
[2024-04-06] MEDS: PACERONE 200 MG PO ×3 (08:16→21:24)
[2024-04-06] MEDS: NOVOLOG FLEXPEN SC ×2 (08:16→11:47)
[2024-04-06] MEDS: MUCINEX 600 MG PO ×2 (08:16→20:18)
--- NOTE | 2024-04-06 09:30 | PTCARENOTE ---
Pt education reinforced regarding pain management. Pt instructed about the pain management goal to achieve a pain scale of 3 out of 10 pain or less. Pt education provided about pain medications and nonpharmaceutical pain management including
repositioning, rest, distraction, massage, imagery, hot or cold therapy, and exercise. Pt demonstrated an understanding of education using the teach back method.
--- NOTE | 2024-04-06 09:30 | PTCARENOTE ---
Pt had difficulty urinating with retention. Assisted to the bathroom to sit on the toilet per patient request. Pt was unable to void and bladder scan as documented. Pt stood to void and passed a large amount of urine on the floor (pt stated he
missed the urinal opening).
[2024-04-06 09:55] LABS: Glucose - Point of Care 164 mg/dl (70-99)
[2024-04-06] MEDS: TYLENOL 1000 MG PO ×2 (09:57→21:25)
--- NOTE | 2024-04-06 10:30 | PTCARENOTE ---
Patient education completed regarding DVT prevention in the post operative period and the risk for PE and/or stroke. Pt instructed about frequent movement, frequent ankle pumps, and the need to increase activity during recovery and after discharge.
Fall risk prevention reinforced, and pt instructed not to get up from the chair or bed without the assistance of the nurse. Pt demonstrated an understanding of education using the teach back method. Call dickson in reach of patient at all times.
[2024-04-06 11:41] LABS: Glucose - Point of Care 118 mg/dl (70-99)
--- NOTE | 2024-04-06 12:00 | PTCARENOTE ---
Prior patient assessment remains unchanged. Pt resting comfortably in the chair. Heart sounds S1S2 and lungs diminished but improved since this morning. Pain remains controlled at a 3 out of 10. Pt using ISB every hour, and ISB technique has not
improved. Pt has ambulated in the hallway with one person assist for balance. Demonstrates proper sternal precautions and heart pillow use. Aggressive pain management continues.
[2024-04-06] MEDS: ROXICODONE 2.5 MG PO ×2 (12:23→16:45)
--- NOTE | 2024-04-06 13:00 | PTCARENOTE ---
Insulin protocol d/c and insulin infusion stopped. Pt will receive sliding scale insulin.
--- NOTE | 2024-04-06 13:20 | PTCARENOTE ---
Chest tubes times four discontinued. Sutures tied and vaseline gauze applied to chest tube sites. Oxygen saturation on continuous monitoring and remains unchanged. Pt in bed resting comfortably and sleeping now. Tolerated well. Will monitor for
acute pain, shortness of breath or change in vital signs.
--- NOTE | 2024-04-06 15:26 | PTCARENOTE ---
Pt education completed about the modifiable and non-modifiable risk factors for CAD. Education included emphasis on modifiable risk factors like high BP; high blood cholesterol levels; smoking; diabetes; overweight or obesity; lack of physical
activity; unhealthy diet and stress. Specific risk factors
that apply to the patient were discussed like medication compliance (pt states he stopped taking ASA at home), diet, strict glucose management and activity. The patient will need education reinforcement due to pain.
--- NOTE | 2024-04-06 15:32 | PTCARENOTE ---
Prior assessment remains unchanged. Heart and lung sounds unchanged. Pt continues to increase activity level. Infection prevention education provided including hand hygiene, incision care at home, and signs/symptoms of infection.
--- NOTE | 2024-04-06 15:33 | PTCARENOTE ---
Pt in bed asleep, requires 2 liters nasal cannula when in bed, tolerates room air when up in chair.
[2024-04-06] MEDS: NOVOLOG FLEXPEN-HIGH RESISTANCE 2 UNITS SC (17:00)
[2024-04-06 17:01] LABS: Glucose - Point of Care 152 mg/dl (70-99)
--- NOTE | 2024-04-06 18:08 | PTCARENOTE ---
Mr Bam ambulated four times today, the furthest walk was 300 feet and the shortest walk was 25 feet. Pt needs encouragement to ambulate but completes incentive spirometer independently.
--- NOTE | 2024-04-06 19:59 | PTCARENOTE ---
Pt received from outgoing RN, Pt oob in a chair, NSR, RA, pain management, POD2, voiding in urinal, no bm, rt IJ cordis, PIV x2, family at bedside, Wires insulated.
[2024-04-06] MEDS: LIPITOR 80 MG PO (21:25)
[2024-04-06] MEDS: DEPAKOTE (12 HR RELEASE) 1000 MG PO (21:25)
[2024-04-06] MEDS: DESYREL 100 MG PO (21:25)
[2024-04-07] VITALS (11 sets, daily range): BP systolic 94–130; BP diastolic 63–84; BMI 36.5
--- NOTE | 2024-04-07 00:31 | PTCARENOTE ---
Pt reassessment unchanged from previous, vss, nsr, 2lnc, pain control, CT x4, rt Ij cordis, insulin gtt, IS
--- NOTE | 2024-04-07 00:32 | PTCARENOTE ---
Pt reassessment unchanged from previous, vss, 2lnc, Rt IJ cordis, insulated wires, pain management, NSR
[2024-04-07] MEDS: ROXICODONE 5 MG PO ×4 (03:01→23:34)
[2024-04-07 03:11] LABS: Hematocrit 25.2 % (39.0-52.0); Hemoglobin 8.8 g/dL (13.0-18.0); Mean Corp Hgb Conc. 34.9 g/dL (33.0-37.0); Mean Corpuscular Hgb 30.2 pg (27.0-31.0); Mean Corpuscular Volume 86.6 fL (80.0-94.0); Platelet Count 142 10^3/uL (130-400); Red Blood Cell Count 2.91 10^6/uL (4.70-6.10); Red Cell Dist. Width 14.9 % (11.5-14.5); White Blood Cell Count 12.1 10^3/uL (4.8-10.8)
[2024-04-07 03:26] LABS: Blood Urea Nitrogen 20 mg/dl (9-20); Calcium 9.2 mg/dl (8.4-10.2); Carbon Dioxide 25 mmol/L (22-30); Chloride 103 mmol/L (98-107); Estimated Creatinine Clearance 117 ml/min; Glucose 143 mg/dl (70-99); Magnesium 2.2 mg/dl (1.6-2.3); Potassium 4.3 mmol/L (3.5-5.1); Sodium 136 mmol/L (135-145); eGFR > 60.00
--- NOTE | 2024-04-07 04:40 | PTCARENOTE ---
pt reassessment unchanged from previous, vss, RA, NSR, pain management, passing gas, no BM this morning, Rt IJ cordis.
--- NOTE | 2024-04-07 06:03 | W.PN.CT ---
Today's Communication / Plan
-
-pod #3
-CTs out
-BB increased to 25 mg, tolerateing
-continue current meds
-encourage IS, OOB
Assessment / Plan
-
Assessment:
-CAD including 50-60% mid LM- s/p CABG x 2 (DEBRA to LAD; to OM) on 04/04/[address] Fernandes, pod #3
-NSTEMI (peak trop 0.20)
-Unstable Angina
-Hx CAD S/P PCI with SHANA to RCA and LCx 07/2016; mid LAD 07/2017; high-grade ostial OM2 03/2021 (all patent per cath 03/29)
-Plavix washout, last dose 03/29
-LVEF 55-60%
-No significant valvular disease
-HTN
-HLD
-T2DM (A1C 7.4)
-Class 2 obesity (BMI 36)
-Probable COLETTE
-Bipolar disorder
-Anxiety disorder
-S/P Repair of undescended testes
-Acute postop blood loss anemia- stable
-Acute postop atelectasis
-Acute postop 1st degree AVB
-Acute postop hyperkalemia - improved
-Acute postop hypovolemia with subsequent hypervolemia
-Acute postop urinary retention
Subjective
Procedure
s/p CABG x 2 (DEBRA to LAD; to OM) on 04/04/[address] Fernandes
-
Date of Service: April 07, 2024
Objective Data
-
Lab Results
04/07/24 02:57
04/07/24 02:57
PT 16.5 Sec (11.4-14.6) H 04/04/24 14:06
INR 1.32 04/04/24 14:06
APTT 28.5 Sec (23.4-35.0) 04/04/24 14:06
Vital Signs
Vital Signs
Temp Pulse Resp BP Pulse Ox
98 F 82 20 111/68 95
04/07/24 04:00 04/07/24 04:00 04/07/24 04:00 04/07/24 04:00 04/07/24 04:00
CT Intake/Output/Weight
04/06/24 04/06/24 04/07/24
06:59 18:59 06:59
Intake Total 626.5 / 1474.3 812 / 882 70 / 882
Output Total 630 / 810 1070 / 1420 350 / 1420
Balance -3.5 / 664.3 -258 / -538 -280 / -538
SaO2: 95
Physical Exam
-
General: Awake, Oriented and AOx3
Cardiovascular: Regular rate & rhythm and Murmur
Respiratory: Rales
Sternum: Stable
Incision: Clean, Dry and Intact
Extremities: Edema +1
Data Reviewed
-
Lab Results: Results Reviewed
Medications: Active Meds Reviewed
Chest X-Ray: Report Reviewed
ECG: Report Reviewed
[2024-04-07] MEDS: TYLENOL 1000 MG PO ×3 (06:13→21:59)
[2024-04-07 07:06] LABS: Glucose - Point of Care 157 mg/dl (70-99)
--- NOTE | 2024-04-07 07:30 | PTCARENOTE ---
Assumed care of patient from production shift supervisor RN. AAO x 3 sitting up in the chair. C/o pain , but states its better but needs pain meds sooner than later. SR on monitor. Room air 95%, using IS to 1000. Denies cough or sputum at present. Chest tubes
sites c,d,i. Abdomen obese, non tender, passing flatus. Voiding in bathroom w/o issue. NO overt edema appreciated. Pulses palpable. Much more motivated to day to get ambulating .
--- NOTE | 2024-04-07 07:31 | W.PN.CD ---
Today's Communication / Plan
-
-Continue aspirin, atorvastatin, heparin and metoprolol.
Impression / Plan
-
Impression/Plan: 53 y/o male with HTN, HLD, NIDDM and prior CAD with PCI of the RCA/LCx/LAD now admitted with NSTEMI.
#NSTEMI status post coronary bypass graft.
-Cardiac catheterization shows severe LMCA disease (MLA 4.5 mm2 on IVUS). Prior SHANA to RCA, LCX, mid LAD and ostial OM2 (2020), all stable on cardiac catheterization.
-Has not been seen in the office for quite some time. There is suspicion for non-compliance.
-S/P CABG x2 (ORTIZ to LAD, free LAKESHA Y-graft from ORTIZ to OM), 04/04/2024 (Dr. Fernandes). Postop day #3
-Expectant post operative management.
-chest tubes - removed.
-Continue aspirin, atorvastatin, heparin and metoprolol.
#HTN
-Chronic, stable.
-Restart anti-hypertensives as BP normalizes.
#HLD
-Chronic.
-Total cholesterol = 163, LDL = 74, HDL = 40, Triglycerides = 246.
-Goal LDL < 55.
-Continue atorvastatin and ezetimibe.
-Repeat lipid panel in 3 months. He may need PCSK9i and/or icosapent ethyl.
#GERD
-New diagnosis.
-Chest pain resolved with addition of PPI.
-Maintain pantoprazole at this time. Transition to famotidine as an outpatient.
#NIDDM
-Chronic, stable.
-HbA1c pending.
-Metformin on hold given recent cath.
-SSI per hospitalist.
-He would benefit from GLP1 analog (Diabetes + CAD + obesity).
#Anxiety
-Chronic, stable.
-Continue meds per hospitalist.
Subjective/Interval History:
Patient de-lined. Patient is feeling better. Out of the bed to chair
DATA:
Cardiac Catheterization, 03/29/2024:
CONCLUSIONS
1. Right dominant circulation with a hemodynamically significant 58-60%, hazy mid left main coronary artery lesion, patent stents in the LAD, circumflex and OM1 and proximal RCA, all without in-stent restenosis and minor luminal irregularities.
2. Top normal to mildly elevated filling pressures (LVEDP = 16 mmHg at 123.8 kg).
3. Diabetes mellitus.
TTE, 03/29/2024:
CONCLUSIONS
LV ejection fraction is 55-60% by visual assessment. No regional wall motion
abnormalities are seen.
Normal right ventricular size and function.
No significant valvular disease.
No significant change since the prior study of 12/26/2019.
Physical Exam
Vital Signs/Labs
Vital Signs
Temp Pulse Resp BP Pulse Ox
98 F 82 20 111/68 95
04/07/24 04:00 04/07/24 04:00 04/07/24 04:00 04/07/24 04:00 04/07/24 06:04
04/06/24 04/07/24 04/08/24
06:59 06:59 06:59
Actual Weight 112 kg 112.1 kg
04/07/24 02:57
04/07/24 02:57
PT 16.5 Sec (11.4-14.6) H 04/04/24 14:06
INR 1.32 04/04/24 14:06
APTT 28.5 Sec (23.4-35.0) 04/04/24 14:06
Magnesium 2.2 mg/dl (1.6-2.3) 04/07/24 02:57
Triglycerides 246 mg/dl (10-149) H 03/30/24 05:31
LDL Cholesterol, Calc 74 mg/dl 03/30/24 05:31
VLDL Cholesterol, Calc 49 mg/dl (0-30) H 03/30/24 05:31
HDL Cholesterol 40 mg/dl 03/30/24 05:31
Physical Exam
Constitutional: No acute distress and Comfortable
EENT: Anicteric and Moist mucous membranes
Cardiovascular: Rhythm & rate is regular, Pedal edema is absent and JVD pressure is normal
Respiratory: Respiratory effort normal, Wheeze Absent and Crackles Absent
GI: Soft, Distention absent and Normal bowel sounds
Neuro/Psych: Alert and Oriented
Other: Skin
Data Reviewed
-
Date of Service: April 07, 2024
Medical Decision Making: Reviewed Test Results, Independent Historian Assessment, Test Interpretation and Review of Case with other Provider
EKG: Tracing Personally Visualized and interpreted
Labs: Labs Reviewed by me
Old Records: Reviewed
[2024-04-07] MEDS: PROTONIX 40 MG PO (07:55)
[2024-04-07] MEDS: LASIX 40 MG IV ×2 (07:55→15:10)
[2024-04-07] MEDS: LOW STRENGTH ASPIRIN 81 MG PO (07:56)
[2024-04-07] MEDS: PLAVIX 75 MG PO (07:56)
[2024-04-07] MEDS: LOPRESSOR 25 MG PO ×2 (07:56→21:58)
[2024-04-07] MEDS: FLEXERIL 5 MG PO (07:57)
[2024-04-07] MEDS: LAMICTAL 100 MG PO (07:58)
[2024-04-07] MEDS: MAGNESIUM OXIDE 500 MG PO ×2 (07:58→21:59)
[2024-04-07] MEDS: KLONOPIN 1 MG PO ×2 (07:58→21:58)
[2024-04-07] MEDS: SENOKOT-S 1 TABLET PO ×2 (07:58→21:59)
[2024-04-07] MEDS: NOVOLOG FLEXPEN-HIGH RESISTANCE 2 UNITS SC (07:59)
[2024-04-07] MEDS: WELLBUTRIN SR (12 hour sustained release) 200 MG PO (07:59)
[2024-04-07] MEDS: FLOMAX 0.400000000000000022 MG PO (07:59)
[2024-04-07] MEDS: PACERONE 200 MG PO ×3 (07:59→21:59)
[2024-04-07] MEDS: MUCINEX 600 MG PO ×2 (07:59→21:59)
[2024-04-07] MEDS: DEPAKOTE (12 HR RELEASE) 500 MG PO (07:59)
[2024-04-07] MEDS: LIDOCAINE 4% PATCH TOPICAL (08:00)
[2024-04-07] MEDS: BACTROBAN 2% OINTMENT 1 APPLIC NASAL ×2 (08:00→21:58)
--- NOTE | 2024-04-07 11:52 | PTCARENOTE ---
Pt and significant other concerned about how 'they' will get home once time for discharge. Significant other asking if she can ride home with patient in his transportation. Will refer this issue to case management. Significant other tearful ,
emotional support provided.
[2024-04-07 13:15] LABS: Glucose - Point of Care 125 mg/dl (70-99)
[2024-04-07] MEDS: NOVOLOG FLEXPEN-HIGH RESISTANCE SC ×2 (13:16→17:46)
[2024-04-07] MEDS: NSS IV (13:16)
[2024-04-07] MEDS: KCL 20 MEQ PO (15:10)
[2024-04-07 16:47] LABS: Glucose - Point of Care 154 mg/dl (70-99)
[2024-04-07] MEDS: DESYREL 100 MG PO (21:59)
[2024-04-07] MEDS: LIPITOR 80 MG PO (21:59)
[2024-04-07] MEDS: DEPAKOTE (12 HR RELEASE) 1000 MG PO (21:59)
--- NOTE | 2024-04-07 23:30 | PTCARENOTE ---
assumed care of pt from previous RN. pt A&Ox4, resting in bed at time of assessment. pt c/o 03/01 pain, see DEC. SR on tele-monitor. trace generalized edema. palpable peripheral pulses. 2 L NC, POX 95%. lung diminished in b/l bases. abd s/n, round,
obese. +BS. pt voiding clear, yellow urine in bathroom. all surgical sites stable, CDI. PIV x2 intact.
[2024-04-08] VITALS (13 sets, daily range): BP systolic 97–124; BP diastolic 63–82; PULSE 78; O2SAT 94–97; BMI 36.5
[2024-04-08] MEDS: ROXICODONE 2.5 MG PO (01:22)
--- NOTE | 2024-04-08 04:30 | PTCARENOTE ---
assessment remains unchanged. VSS. AM labs collected and sent. pt assisted OOB to chair.
[2024-04-08 04:32] LABS: Hematocrit 23.8 % (39.0-52.0); Mean Corp Hgb Conc. 33.6 g/dL (33.0-37.0); Mean Corpuscular Volume 89.1 fL (80.0-94.0); Mean Platelet Volume 10.4 fL (7.4-10.4); Platelet Count 138 10^3/uL (130-400); Red Blood Cell Count 2.67 10^6/uL (4.70-6.10); Red Cell Dist. Width 14.6 % (11.5-14.5); White Blood Cell Count 7.3 10^3/uL (4.8-10.8)
[2024-04-08] MEDS: TYLENOL 1000 MG PO ×3 (04:43→22:56)
[2024-04-08] MEDS: FLEXERIL 5 MG PO ×2 (04:43→16:24)
--- NOTE | 2024-04-08 04:50 | W.PN.CT ---
Today's Communication / Plan
-
-pod #4
-s/p 40 mg IV lasix BID yesterday. UOP 1500/2900 in 12/24 hrs
-BB increased to 25 mg, tolerating
-Continue amio 200 mg TID, asa, atorvastatin, Plavix
-Continue tamsulosin
-continue Wellbutrin, clonazepam, Depakote, Lamictal, trazodone
-encourage IS, OOB, ambulate
Assessment / Plan
-
Assessment:
-CAD including 50-60% mid LM- s/p CABG x 2 (DEBRA to LAD; to OM) on 04/04/[address] Fernandes, pod #4
-NSTEMI (peak trop 0.20)
-Unstable Angina
-Hx CAD S/P PCI with SHANA to RCA and LCx 07/2016; mid LAD 07/2017; high-grade ostial OM2 03/2021 (all patent per cath 03/29)
-Plavix washout, last dose 03/29
-LVEF 55-60%
-No significant valvular disease
-HTN
-HLD
-T2DM (A1C 7.4)
-Class 2 obesity (BMI 36)
-Probable COLETTE
-Bipolar disorder
-Anxiety disorder
-S/P Repair of undescended testes
-Acute postop blood loss anemia- stable
-Acute postop atelectasis
-Acute postop 1st degree AVB
-Acute postop hyperkalemia - improved
-Acute postop hypovolemia with subsequent hypervolemia
-Acute postop urinary retention
Subjective
Procedure
s/p CABG x 2 (DEBRA to LAD; to OM) on 04/04/[address] Fernandes
-
Date of Service: April 08, 2024
Objective Data
-
Lab Results
04/08/24 04:02
PT 16.5 Sec (11.4-14.6) H 04/04/24 14:06
INR 1.32 04/04/24 14:06
APTT 28.5 Sec (23.4-35.0) 04/04/24 14:06
Vital Signs
Vital Signs
Temp Pulse Resp BP Pulse Ox
98.6 F 83 18 116/63 95
04/08/24 04:00 04/08/24 04:00 04/08/24 04:00 04/08/24 04:00 04/08/24 04:00
CT Intake/Output/Weight
04/07/24 04/07/24 04/08/24
06:59 18:59 06:59
Intake Total 70 / 882 1110 / 1110
Output Total 350 / 1420 1400 / 2900 1500 / 2900
Balance -280 / -538 -290 / -1790 -1500 / -1790
SaO2: 95
Physical Exam
-
General: Awake, Oriented and AOx3
Cardiovascular: Regular rate & rhythm
Respiratory: Clear and Equal
Sternum: Stable
Incision: Clean, Dry and Intact
Extremities: No Erythema
Data Reviewed
-
Lab Results: Results Reviewed
Medications: Active Meds Reviewed
Chest X-Ray: Report Reviewed
ECG: Report Reviewed
[2024-04-08 04:54] LABS: Blood Urea Nitrogen 18 mg/dl (9-20); Carbon Dioxide 26 mmol/L (22-30); Chloride 102 mmol/L (98-107); Estimated Creatinine Clearance 117 ml/min; Glucose 119 mg/dl (70-99); Magnesium 2.1 mg/dl (1.6-2.3); Potassium 4.3 mmol/L (3.5-5.1); Sodium 135 mmol/L (135-145); eGFR > 60.00
--- NOTE | 2024-04-08 07:00 | PTCARENOTE ---
Bedside walkimg rounds report received. Patient seen on rounds oob in chair and tolerating well. NSR. Needs reinforcement with technique of getting up and down from bed. Instructed that at this point, bedrest should be minimized during the day for
lung expansion and IS utilized hourly/and the importance of expectorating secretions. See flow record for remaining assessments.
[2024-04-08] MEDS: NOVOLOG FLEXPEN-HIGH RESISTANCE 2 UNITS SC (07:21)
[2024-04-08] MEDS: BACTROBAN 2% OINTMENT 1 APPLIC NASAL (07:21)
[2024-04-08 07:25] LABS: Glucose - Point of Care 151 mg/dl (70-99)
[2024-04-08] MEDS: LOW STRENGTH ASPIRIN 81 MG PO (08:42)
[2024-04-08] MEDS: PROTONIX 40 MG PO (08:42)
[2024-04-08] MEDS: LIDOCAINE 4% PATCH 1 PATCH TOPICAL (08:42)
[2024-04-08] MEDS: DEPAKOTE (12 HR RELEASE) 500 MG PO (08:43)
[2024-04-08] MEDS: MAGNESIUM OXIDE 500 MG PO ×2 (08:43→19:35)
[2024-04-08] MEDS: FLOMAX 0.400000000000000022 MG PO (08:43)
[2024-04-08] MEDS: LOPRESSOR 25 MG PO ×2 (08:43→19:35)
[2024-04-08] MEDS: WELLBUTRIN SR (12 hour sustained release) 200 MG PO (08:43)
[2024-04-08] MEDS: MUCINEX 600 MG PO ×2 (08:43→19:35)
[2024-04-08] MEDS: LAMICTAL 100 MG PO (08:43)
[2024-04-08] MEDS: SENOKOT-S 1 TABLET PO ×2 (08:43→19:35)
[2024-04-08] MEDS: PLAVIX 75 MG PO (08:43)
[2024-04-08] MEDS: KLONOPIN 1 MG PO ×2 (08:44→19:35)
[2024-04-08] MEDS: PACERONE 200 MG PO ×3 (08:44→22:56)
[2024-04-08] MEDS: GLUCOPHAGE 500 MG PO (09:48)
[2024-04-08] MEDS: ZESTRIL 5 MG PO (09:48)
--- NOTE | 2024-04-08 12:00 | PTCARENOTE ---
No acute changes. NSR.
[2024-04-08] MEDS: NOVOLOG FLEXPEN-HIGH RESISTANCE 1 UNITS SC ×2 (12:36→17:40)
[2024-04-08 12:40] LABS: Glucose - Point of Care 122 mg/dl (70-99)
--- NOTE | 2024-04-08 13:03 | W.PN.CD ---
Addendum entered and electronically signed by Robert Cordero MD 04/08/24 14:13:
monitor post op anemia
Addendum entered and electronically signed by Robert Cordero MD 04/08/24 14:12:
I saw and examined the patient.
The PEANUT SHELLER's note was reviewed and I agree with the note.
Comment: patient having chest wall pain and rib pain which he says is similar quality to yesterday
continued pain control directed by CT surgery
Original Note:
Today's Communication / Plan
-
-continue ASA, statin, BB
-encourage IS, ambulation as tolerated
Impression / Plan
-
Impression/Plan: 53 y/o male with HTN, HLD, NIDDM and prior CAD with PCI of the RCA/LCx/LAD admitted with NSTEMI, and now s/p CABG.
#NSTEMI status post coronary bypass graft.
-Cardiac catheterization shows severe LMCA disease (MLA 4.5 mm2 on IVUS). Prior SHANA to RCA, LCX, mid LAD and ostial OM2 (2020), all stable on cardiac catheterization.
-Has not been seen in the office for quite some time and there is suspicion for non-compliance; will need to follow-up moving forward.
-now S/P CABG x2 (ROTIZ to LAD, free LAKESHA Y-graft from ORTIZ to OM), 04/04/2024 (Dr. Fernandes).
-Continue aspirin, atorvastatin, and metoprolol.
#HTN
-stable
-continue BB and ACEI
#HLD
-Total cholesterol = 163, LDL = 74, HDL = 40, Triglycerides = 246.
-Goal LDL < 55.
-Continue atorvastatin and repeat lipid panel in 3 months.
#GERD
-Maintain pantoprazole at this time. Transition to famotidine as an outpatient.
#NIDDM
-hgb A1C 7.4
-on insulin here. On metformin as OP.
-He would benefit from GLP1 analog (Diabetes + CAD + obesity), can consider as OP
#Anxiety
-seems to be stable
Subjective/Interval History:
Looks well, OOB to chair. Ambulating and using IS.
DATA:
Cardiac Catheterization, 03/29/2024:
CONCLUSIONS
1. Right dominant circulation with a hemodynamically significant 58-60%, hazy mid left main coronary artery lesion, patent stents in the LAD, circumflex and OM1 and proximal RCA, all without in-stent restenosis and minor luminal irregularities.
2. Top normal to mildly elevated filling pressures (LVEDP = 16 mmHg at 123.8 kg).
3. Diabetes mellitus.
TTE, 03/29/2024:
CONCLUSIONS
LV ejection fraction is 55-60% by visual assessment. No regional wall motion
abnormalities are seen.
Normal right ventricular size and function.
No significant valvular disease.
No significant change since the prior study of 12/26/2019.
Physical Exam
Vital Signs/Labs
Vital Signs
Temp Pulse Resp BP Pulse Ox
97.9 F 78 18 116/68 95
04/08/24 12:34 04/08/24 12:34 04/08/24 12:34 04/08/24 12:34 04/08/24 12:34
04/07/24 04/08/24 04/09/24
06:59 06:59 06:59
Actual Weight 112.1 kg 111.9 kg
04/08/24 04:02
04/08/24 04:02
PT 16.5 Sec (11.4-14.6) H 04/04/24 14:06
INR 1.32 04/04/24 14:06
APTT 28.5 Sec (23.4-35.0) 04/04/24 14:06
Magnesium 2.1 mg/dl (1.6-2.3) 04/08/24 04:02
Triglycerides 246 mg/dl (10-149) H 03/30/24 05:31
LDL Cholesterol, Calc 74 mg/dl 03/30/24 05:31
VLDL Cholesterol, Calc 49 mg/dl (0-30) H 03/30/24 05:31
HDL Cholesterol 40 mg/dl 03/30/24 05:31
Physical Exam
Constitutional: No acute distress
EENT: Anicteric
Cardiovascular: Rhythm & rate is regular
Respiratory: Respiratory effort normal and Lungs clear to auscul.
Neuro/Psych: AO x 3
Other: Skin (midsternal incision intact)
Data Reviewed
-
Date of Service: April 08, 2024
EKG: Other (tele SR)
[2024-04-08] MEDS: ROXICODONE 5 MG PO ×2 (13:55→22:55)
--- NOTE | 2024-04-08 14:00 | PTCARENOTE ---
Having increased sternal pain: cardiology (Dr. Cordero) aware on rounds and Dr. Fernandes updated: new orders for 12 lead EKG and 2d echo at some point today.
[2024-04-08] MEDS: OCEAN, SALINE MIST 2 SPRAYS NASAL (14:10)
--- NOTE | 2024-04-08 15:50 | CARDSERVLU ---
Echocardiogram with [facility] completed after protocol screening completed. Allergies verified.
Patent IV site: __R wrist___
IV site flushed with 0.9% NaCl pre and post administration.
Diluted bolus method utilized to enhance visualization of ventricular bill.
Total volume given: __3.5__ mL
Patient tolerated all procedures well without complications.
[2024-04-08] MEDS: NSS IV (16:19)
--- NOTE | 2024-04-08 16:43 | CM ---
dc plans remain home when medically stable. and f/u visit from the ct transitional care nurse
[2024-04-08 17:26] LABS: Glucose - Point of Care 131 mg/dl (70-99)
--- NOTE | 2024-04-08 20:00 | PTCARENOTE ---
assumed care of patient @ 1900. recieved pt laying in bed, AOX3. NSR on tele HR 80s. +pulses, - edema. Lungs clear, diminished on room air. productive cough with thick white secretions. +Bm today. voiding spontaneiously in urinal. sternal aquacel
CDI, CT dressing cdi, SVG CDI ENERGY SALES CONSULTANT. pt resting comfortably in bed with call dickson within reach .
[2024-04-08] MEDS: DEPAKOTE (12 HR RELEASE) 1000 MG PO (22:55)
[2024-04-08] MEDS: DESYREL 100 MG PO (22:55)
[2024-04-08] MEDS: LIPITOR 80 MG PO (22:55)
[2024-04-08 23:00] LABS: Glucose - Point of Care 107 mg/dl (70-99)
--- NOTE | 2024-04-08 23:02 | PTCARENOTE ---
triny 5 given for moderate pain, no other change in assessment.
[2024-04-09] VITALS (9 sets, daily range): BP systolic 103–132; BP diastolic 61–79; PULSE 84; O2SAT 96–97; BMI 36.3
[2024-04-09 04:28] LABS: Hematocrit 26.7 % (39.0-52.0); Mean Corp Hgb Conc. 33.7 g/dL (33.0-37.0); Mean Corpuscular Hgb 30.1 pg (27.0-31.0); Mean Corpuscular Volume 89.3 fL (80.0-94.0); Mean Platelet Volume 9.7 fL (7.4-10.4); Platelet Count 185 10^3/uL (130-400); Red Blood Cell Count 2.99 10^6/uL (4.70-6.10); Red Cell Dist. Width 14.7 % (11.5-14.5); White Blood Cell Count 7.5 10^3/uL (4.8-10.8)
--- NOTE | 2024-04-09 04:32 | PTCARENOTE ---
labs drawn and sent, pt resting comfortably, no change in assessment .
--- NOTE | 2024-04-09 04:38 | W.PN.CT ---
Today's Communication / Plan
-
-No major issues overnight. Hemodynamically and neurologically intact
-Echo yesterday showed EF of 50%, mild inferoseptal and anteroseptal hypokinesis
-Cont. current meds (ASA, Plavix, switch Lopressor to Toprol XL, Amiodarone, Keppra, Lamictal; not sure if able tolerate Lisinopril given soft BP)
-Encourage use of IS
-OOB into chair/Ambulate
-No temporary PW
-D/C home
Assessment / Plan
-
Assessment:
-CAD including 50-60% mid LM- s/p CABG x 2 (DEBRA to LAD; to OM) on 04/04/[address] Fernandes, pod #5
-NSTEMI (peak trop 0.20)
-Unstable Angina
-Hx CAD S/P PCI with SHANA to RCA and LCx 07/2016; mid LAD 07/2017; high-grade ostial OM2 03/2021 (all patent per cath 03/29)
-Plavix washout, last dose 03/29
-LVEF 55-60%
-No significant valvular disease
-HTN
-HLD
-T2DM (A1C 7.4)
-Class 2 obesity (BMI 36)
-Probable COLETTE
-Bipolar disorder
-Anxiety disorder
-S/P Repair of undescended testes
-Acute postop blood loss anemia- stable
-Acute postop atelectasis
-Acute postop 1st degree AVB
-Acute postop hyperkalemia - improved
-Acute postop hypovolemia with subsequent hypervolemia
-Acute postop urinary retention
Discussed patient care with: Cardiology, Nursing, Respiratory Therapy, Pharmacy and Care Team
Subjective
Procedure
s/p CABG x 2 (DEBRA to LAD; to OM) on 04/04/[address] Fernandes
-
Date of Service: April 09, 2024
Pt c/o mild incisional pain, otherwise feels well. Ambulating halls without difficulty
Objective Data
-
Lab Results
04/09/24 04:14
PT 16.5 Sec (11.4-14.6) H 04/04/24 14:06
INR 1.32 04/04/24 14:06
APTT 28.5 Sec (23.4-35.0) 04/04/24 14:06
Vital Signs
Vital Signs
Temp Pulse Resp BP Pulse Ox
98.1 F 83 16 120/69 95
04/09/24 04:31 04/09/24 04:14 04/09/24 04:31 04/09/24 04:14 04/09/24 04:31
CT Intake/Output/Weight
04/08/24 04/08/24 04/09/24
06:59 18:59 06:59
Intake Total 1100 / 1580 480 / 1580
Output Total 1500 / 2900 1275 / 1275
Balance -1500 / -1790 -175 / 305 480 / 305
SaO2: 95 (RA)
Physical Exam
-
General: Awake, Oriented and AOx3
Cardiovascular: Regular rate & rhythm, No Murmurs, No Rub and No Gallop
Respiratory: Decreased Breath Sounds (at bases, otherwise clear)
Sternum: Stable
Incision: Clean, Dry, Intact and Dressing Intact
Extremities: Other (+trace edema)
Data Reviewed
-
Lab Results: Results Reviewed
Medications: Active Meds Reviewed
Chest X-Ray: Report Reviewed and Image Reviewed
ECG: Report Reviewed and Image Reviewed
[2024-04-09 05:00] LABS: Blood Urea Nitrogen 18 mg/dl (9-20); Calcium 9.4 mg/dl (8.4-10.2); Carbon Dioxide 25 mmol/L (22-30); Chloride 103 mmol/L (98-107); Estimated Creatinine Clearance 117 ml/min; Glucose 108 mg/dl (70-99); Potassium 4.5 mmol/L (3.5-5.1); Sodium 137 mmol/L (135-145); eGFR > 60.00
[2024-04-09] MEDS: TYLENOL 1000 MG PO (06:15)
--- NOTE | 2024-04-09 07:00 | PTCARENOTE ---
Bedside walking rounds report received. Patient seen on rounds oob in chair and tolerating well. Awake alert and oriented x 3. NSR. Room air. Clear for dc to home later this am. Vitals stable.
[2024-04-09] MEDS: LIDOCAINE 4% PATCH 1 PATCH TOPICAL (07:22)
[2024-04-09] MEDS: TOPROL XL 25 MG PO (07:23)
[2024-04-09] MEDS: LOW STRENGTH ASPIRIN 81 MG PO (07:23)
[2024-04-09] MEDS: GLUCOPHAGE 500 MG PO (07:23)
[2024-04-09] MEDS: PACERONE 200 MG PO (07:23)
[2024-04-09] MEDS: PROTONIX 40 MG PO (07:23)
[2024-04-09] MEDS: MUCINEX 600 MG PO (07:24)
[2024-04-09] MEDS: KLONOPIN 1 MG PO (07:24)
[2024-04-09] MEDS: FLOMAX 0.400000000000000022 MG PO (07:24)
[2024-04-09] MEDS: FLEXERIL 5 MG PO (07:24)
[2024-04-09] MEDS: WELLBUTRIN SR (12 hour sustained release) 200 MG PO (07:24)
[2024-04-09] MEDS: LAMICTAL 100 MG PO (07:24)
[2024-04-09] MEDS: PLAVIX 75 MG PO (07:24)
[2024-04-09] MEDS: ZESTRIL 5 MG PO (07:24)
[2024-04-09] MEDS: MAGNESIUM OXIDE 500 MG PO (07:24)
[2024-04-09] MEDS: DEPAKOTE (12 HR RELEASE) 500 MG PO (07:25)
--- NOTE | 2024-04-09 08:10 | W.DCSUMMARY ---
Discharge Summary
Discharge Data
Date of Admission: 03/29/24
Date of Discharge: 04/09/24
-
Pending Results: No
Hospital Course
Primary care physician: Jermaine Hager
Outpatient advertising material distributor: Garfield Fleming
Inpatient consultants: [facility] Cardiology
Procedures:
1. Coronary artery bypass grafting
Primary Diagnosis:
1. Coronary artery disease/NSTEMI
Secondary Diagnoses:
1. Morbid obesity (body mass index 36.1)
2. Non insulin-dependent diabetes mellitus (A1C 7.4)
3. Hypertension/hyperlipidemia
4. anxiety, bipolar depression
5. Acute surgical blood loss anemia�expected
HPI: 53-year-old male with known CAD and multiple stents, was admitted via the ED 03/29 with c/o chest pain for 1 week. Initially reported exertional midsternal chest pain that progressed to occasional rest pain. He admits to NOT taking
ASA 81mg daily for the last 6 months (doesn't remember to take meds) and has not been evaluated by advertising material distributor for more than 1 year. Initial troponin 0.200. Patient received Plavix dose in the emergency room. Echocardiogram reported a normal
ejection fraction. Patient taken to the cardiac catheterization lab and found to have significant left main disease.
Hospital course: Surgery was delayed for Plavix washout and patient underwent CABG x 2 (DEBRA to LAD; 'Y' JAS to OM) documented to office 04/04/2024. Patient received no intraoperative blood products and returned to CVICU on Levophed, insulin, and
Precedex. Patient did not have temporary epicardial pacing wires and was extubated the day of surgery at 2104. To be sent on a right and left pleural chest tube were removed on postoperative day #2. Patient was diuresed with Lasix 40 mg IV for
several days. Metformin was started resumed on postoperative day #4. TTE on 04/08 reported an EF of 50% with mild inferior septal and anteroseptal hypokinesis. Patient had no postoperative arrhythmias and prophylactic amiodarone was discontinued on
discharge. Lisinopril was continued at a reduced dose of 5 mg daily with systolic blood pressures in the low 100s and patient asymptomatic. Patient ambulated in the [facility] with cardiac rehab and deemed stable for discharge home.
Home medication changes:
See below
Discharge Plan
-
Patient Disposition: Home (Routine Discharge)
Discharge Diagnosis/Procedures: CABG
Condition: Good
Diet: Low Cholesterol and Diabetic, Carb Controlled
Activity: No strenuous activity
Driving Restrictions: Not until seen by your Dr
Bathing Restrictions: OK to Shower
Other Services: Cardiac Rehab
Specialty Instructions: Weigh Daily- Call MD for wt gain/loss 3 lbs overnight/5 lbs in 1 week
Stand Alone Forms: DC Instructions- Cath/EP Lab
Referrals:
Viviana Woodson CRNP [Specified Professional Personl] - 05/21/24 9:30 am
Jermaine Hager PA-C [Family Provider] -
Stepan Fernandes MD [Active] - 05/07/24 2:30 pm
Additional Discharge Medication Instructions: Hold Metformin post procedure, resume on Monday evening
Prescriptions:
New
aspirin [Children's Aspirin] 81 mg Tablet,Chewable
81 mg PO DAILY Qty: 0 0RF
tamsulosin 0.4 mg Capsule
0.4 mg PO DAILY Qty: 30 1RF
oxycodone 5 mg Tablet
5 mg PO Q6HPRN PRN (Reason: severe pain) Qty: 20 0RF
lisinopril 5 mg Tablet
5 mg PO DAILY Qty: 30 1RF
Continued
clopidogrel 75 MG tablet
75 mg PO DAILY Qty: 90 3RF
hydroxyzine HCl 10 MG tablet
10 mg PO HS
atorvastatin 80 MG tablet
80 mg PO HS
metoprolol succinate 50 MG tablet extended release 24 hr
50 mg PO HS
pantoprazole 40 MG tablet,delayed release (DR/EC)
40 mg PO HS
divalproex 500 MG tablet,delayed release (DR/EC)
1,000 mg PO HS
divalproex 500 MG tablet,delayed release (DR/EC)
500 mg PO DAILY
clonazepam 1 MG tablet
1 mg PO BID
metformin 500 mg Tablet
500 mg PO DAILY
acetaminophen 650 mg Tablet Extended Release
1,300 mg PO Q8HPRN PRN (Reason: mild pain)
trazodone 100 mg Tablet
100 mg PO HS
zolpidem 10 mg Tablet
10 mg PO HS
lamotrigine 100 mg Tablet
100 mg PO DAILY
bupropion HCl 200 mg Tablet Sustained-Release 12 Hr
200 mg PO DAILY
quetiapine 400 mg Tablet Extended Release 24 Hr
400 mg PO HS
Discontinued
lisinopril 40 MG tablet
20 mg PO HS
nitroglycerin 0.4 MG tablet, sublingual
0.4 mg sublingual [id number] PRN (Reason: chest pain)
isosorbide mononitrate 60 mg Tablet Extended Release 24 Hr
60 mg PO DAILY
Discharge Orders:
Discharge Patient (As Directed); Ordered 04/09/24
Ordered By: Bernie Walls
Care Plan Goals
Care Plan Goals:
Problem: Readiness for enhanced knowledge related to diagnosis and treatment plan
Goal: Understand your diagnosis and treatment plan needs, including medications if applicable.
Instructions: Know your diagnosis, underlying causes and treatment plan options, including medications if applicable. Consult with your health care team to learn about your diagnosis and treatment plan, including medications if applicable.
Discharge Date and Time
Print Language: MACEDONIAN
[2024-04-09] MEDS: SENOKOT-S PO (08:31)
[2024-04-09] MEDS: NOVOLOG FLEXPEN-HIGH RESISTANCE 1 UNITS SC ×2 (08:31→11:57)
[2024-04-09 08:34] LABS: Glucose - Point of Care 135 mg/dl (70-99)
--- NOTE | 2024-04-09 11:42 | PTCARENOTE ---
No acute changes. Vital sign stable. Patient is now doing steps with cardiac air compressor engineer.
[2024-04-09 12:08] LABS: Glucose - Point of Care 140 mg/dl (70-99)
--- NOTE | 2024-04-09 13:00 | PTCARENOTE ---
No acute changes. Ready for dc. Sternal aquacell removed: site is well approximated and without active drainage. Wants to shower at home: dc instructions regarding same given and patient verbalized understanding. Case management involved in getting
transported home via taxi as patient is unable to drive and family/significant other unable to drive. Arrangements made for same. All dc instructions and discharge medications list reviewed pharmacy location reviewed for new prescriptions
== END 2024-04-09 14:19 | disposition home or self-care (01) | DRG 234 ==
LOC: CVICU 17:08
PROVIDERS: Clinical Nurse Specialist Family Health; Emergency Medicine; Internal Medicine; Internal Medicine Cardiovascular Disease; Nurse Practitioner; Nurse Practitioner Gerontology; Physician Assistant Surgical; ADMITTING PHYSICIAN Internal Medicine; ATTENDING PHYSICIAN Thoracic Surgery (Cardiothoracic Vascular Surgery); CONSULT PHYSICIAN Internal Medicine; CONSULT PHYSICIAN Internal Medicine Critical Care Medicine; EMERGENCY PHYSICIAN Emergency Medicine; FAMILY PHYSICIAN Physician Assistant Medical
PROC: 4A023N7 Measurement of Cardiac Sampling and Pressure, Left Heart, Percutaneous Approach (ICD-10-PCS; 2024-03-29)
PROC: B2111ZZ Fluoroscopy of Multiple Coronary Arteries using Low Osmolar Contrast (ICD-10-PCS; 2024-03-29)
PROC: B240ZZ3 Ultrasonography of Single Coronary Artery, Intravascular (ICD-10-PCS; 2024-03-29)
PROC: 5A1221Z Performance of Cardiac Output, Continuous (ICD-10-PCS; 2024-04-04)
PROC: 02110ZC Bypass Coronary Artery, Two Arteries from Thoracic Artery, Open Approach (ICD-10-PCS; 2024-04-04)
DX: I21.4 Non-ST elevation (NSTEMI) myocardial infarction (principal); D62 Acute posthemorrhagic anemia; J98.11 Atelectasis; I25.110 Atherosclerotic heart disease of native coronary artery with unstable angina pectoris; I10 Essential (primary) hypertension; I44.0 Atrioventricular block, first degree; E87.5 Hyperkalemia; E86.1 Hypovolemia; E87.70 Fluid overload, unspecified; R33.8 Other retention of urine; E78.00 Pure hypercholesterolemia, unspecified; M19.90 Unspecified osteoarthritis, unspecified site; L30.9 Dermatitis, unspecified; F31.9 Bipolar disorder, unspecified; E66.01 Morbid (severe) obesity due to excess calories; E11.65 Type 2 diabetes mellitus with hyperglycemia; K21.9 Gastro-esophageal reflux disease without esophagitis; F41.9 Anxiety disorder, unspecified; F51.04 Psychophysiologic insomnia; Z68.36 Body mass index [BMI] 36.0-36.9, adult; Z79.02 Long term (current) use of antithrombotics/antiplatelets; Z79.82 Long term (current) use of aspirin; Z79.84 Long term (current) use of oral hypoglycemic drugs; Z79.899 Other long term (current) drug therapy; Z82.49 Family history of ischemic heart disease and other diseases of the circulatory system; Z86.16 Personal history of COVID-19; Z87.891 Personal history of nicotine dependence; Z95.5 Presence of coronary angioplasty implant and graft
CPT/HCPCS: 93308; 71045; 71046; 71250; 80048; 80053; 80061; 80076; 80164; 81003; 81015; 82330; 82565; 82805; 82947; 82962; 83036; 83735; 84132; 84302; 84484; 84520; 85014; 85018; 85025; 85027; 85049; 85347; 85379; 85610; 85730; 86850; 86900; 86901; 86920; 92978; 93005; 93306; 93312; 93320; 93325; 93458; 93880; 93931; 94002; 94010; 94640; 96365; 97162; 97165; 99291; C1713; C1753; C1894; P9045; Q9950; Q9967

== ENCOUNTER 2024-06-03 17:19 | Emergency (ER) | payer OTHER, SELFPAY ==
[2024-06-03 17:26] VITALS: BP 143/102
[2024-06-03 17:43] LABS: % Basophils 0.5 % (0-2); % Eosinophils 2.9 % (0-6); % Immature Granulocytes 0.5 % (0-0.5); % Lymphocytes 28.2 % (20.5-51.1); % Monocytes 9.5 % (1.7-9.3); % Neutrophils 58.4 % (42.2-75.2); Absolute Basophils 0.1 10^3/uL (0-0.2); Absolute Eosinophils 0.3 10^3/uL (0-0.7); Absolute Immature Granulocytes 0.1 10^3/uL (0-0.05); Absolute Lymphocytes 2.6 10^3/uL (1.2-3.4); Absolute Monocytes 0.9 10^3/uL (0.1-0.6); Absolute Neutrophils 5.3 10^3/uL (1.4-6.5); Hematocrit 39.3 % (39.0-52.0); Hemoglobin 12.9 g/dL (13.0-18.0); Mean Corp Hgb Conc. 32.8 g/dL (33.0-37.0); Mean Corpuscular Hgb 27.7 pg (27.0-31.0); Mean Corpuscular Volume 84.3 fL (80.0-94.0); Mean Platelet Volume 9.2 fL (7.4-10.4); Nucleated Red Blood Cells % 0 % (-); Platelet Count 262 10^3/uL (130-400); Red Blood Cell Count 4.66 10^6/uL (4.70-6.10); Red Cell Dist. Width 13.5 % (11.5-14.5); White Blood Cell Count 9.2 10^3/uL (4.8-10.8)
[2024-06-03 18:00] LABS: ALT (SGPT) 38 U/L (0-50); AST (SGOT) 35 U/L (17-59); Albumin 2.8 g/dl (3.5-5.0); Alkaline Phosphatase 74 U/L (38-126); Blood Urea Nitrogen 10 mg/dl (9-20); Calcium 9.8 mg/dl (8.4-10.2); Carbon Dioxide 26 mmol/L (22-30); Chloride 105 mmol/L (98-107); Glucose 95 mg/dl (70-99); Potassium 4.9 mmol/L (3.5-5.1); Sodium 137 mmol/L (135-145); Total Bilirubin 0.4 mg/dl (0.2-1.3); Total Protein 7.2 g/dl (6.3-8.2); eGFR > 60.00
[2024-06-03 18:06] LABS: Troponin I < 0.012 ng/ml
[2024-06-03 19:18] VITALS: BMI 36.0
[2024-06-03 19:22] VITALS: BP 142/101
--- NOTE | 2024-06-03 19:34 | ED.GENMED ---
History of Present Illness
General
Chief Complaint: Chest Pain
Source: patient
Exam Limitations: none
Time Seen by Provider: 06/03/24 19:14
History of Present Illness
History of Present Illness:
53-year-old male with history of coronary artery disease had double bypass surgery 6 weeks ago presents with the onset of chest discomfort around 4:30 PM today. He states he was carrying groceries and when this happened. He states the pain is
slightly pleuritic. The pain is slightly improved since the onset. He denies leg swelling or calf pain. No cough or fever. No known injury. This pain is different than what brought him in 6 weeks ago prior to having his double bypass surgery.
No other complaints at this time.
Past History
Past History
ED Past Medical History: CAD, HTN and Hypercholesterolemia
ED Past Surgical History: Cardiac (Stents X2)
Social History
Tobacco: Former smoker
Alcohol: None
Drug: Marijuana
Personal: Single
Living: alone
Family History
Family History: Early CAD, CAD and Sudden
Phy Exam
Physical Exam
Physical Exam:
General: Well-appearing male no acute respiratory distress
HEENT: Normal cephalic atraumatic
Heart: Regular rate and rhythm no murmurs
Lungs: Clear no wheeze or rales
Abdomen soft nontender nondistended
Extremities: No cyanosis
Skin: Warm no rash
Scores
Heart Score for Chest Pain Patients
STEMI patient?: No
History: Slightly or Non-Suspicious
ECG: Normal
Age: >45 - <65 years
Risk Factors: >/= 3 Risk Factors or History of CAD
Troponin: </= Normal Limit
Heart Score for Chest Pain Patients: 3
Heart Score Risk: 2.5% MACE over next 6 weeks
Course
Orders/Labs/Results
Orders:
Orders
08/12/24 17:21
Electrocardiogram (*1) Urgent
Reason for Study: Chest Pain
EKG- Treatment ONCE
06/03/24 17:31
Cardiac Monitoring- Treatment ONCE
IV Insert/Care/Rem.- Treatment PRN
O2 Therapy [RESP] Urgent
Titrate/Wean O2 to maintain O2 sat greater than (%): 90
Special Instructions: Maintain sats >/=90%
Pulse Ox/spot Check [RESP] Urgent
Quantity: 1
Special Instructions: ON ROOM AIR
06/03/24 17:34
Complete Blood Count/With Diff Urgent
Comprehensive Metabolic Panel Urgent
Troponin I Urgent
06/03/24 19:33
CT Chest Pe Study Urgent
Comment:
Reason For Exam: chest pain
06/03/24 20:37
Troponin I Urgent
Abnormal Lab Results
06/03/24
17:34
RBC 4.66 L 10^6/uL
(4.70-6.10)
Hgb 12.9 L g/dL
(13.0-18.0)
MCHC 32.8 L g/dL
(33.0-37.0)
Abs Immat Gran (auto) 0.1 H 10^3/uL
(0-0.05)
Absolute Monos (auto) 0.9 H 10^3/uL
(0.1-0.6)
Monocytes % 9.5 H %
(1.7-9.3)
Albumin 2.8 L g/dl
(3.5-5.0)
06/03/24 17:34
06/03/24 17:34
Vital Signs
Initial and Last Documented VS:
Initial Vital Signs
Temp Pulse Resp BP Pulse Ox
98.1 F 82 18 143/102 98
06/03/24 17:26 06/03/24 17:26 06/03/24 17:26 06/03/24 17:26 06/03/24 17:26
Last Documented Vital Signs
Temp Pulse Resp BP Pulse Ox
98.1 F 75 17 133/91 98
06/03/24 17:26 06/03/24 22:00 06/03/24 22:00 06/03/24 22:00 06/03/24 22:00
MDM/Problems Addressed
Differential Diagnosis Includes:
Chest pain. Patient does have history of coronary artery disease with bypass surgery 6 weeks ago. Consider ACS. Given recent surgery and pleuritic component, also consider PE. EKG shows sinus rhythm with a rate of 77 no acute ischemic changes
Initial troponin drawn 1 hour after symptom onset was undetectable. Repeat troponin is pending. PE study also ordered secondary to symptoms. Vital signs are currently stable.
*Critical Care Note
Total Time (30-74mins, 75-104mins- exclusive of procedures): Not Applicable
Update Note
Update Note:
Initial and repeat troponins both undetectable. CT scan of the chest PE study pending official radiology report. Patient reexamined notified patient of negative troponin values. Comfortable. Home with cardiology follow-up
ED Attending Note
-
Portions of this chart may have been created with voice recognition software.� Occasional wrong word or��sound alike� substitutions may have occurred due to the inherent limitations of voice recognition software.
Discharge Plan
Departure
Patient Disposition: Home (Routine Discharge)
Date of Disposition: 06/03/24
Time of Disposition: 22:26
Patient with high blood pressure during this ER visit?: No
Discharge Problem:
Chest pain
Instructions: Chest Pain CBC Follow Up
Prescriptions:
No Action
clopidogrel 75 MG tablet
75 mg PO DAILY Qty: 90 3RF
hydroxyzine HCl 10 MG tablet
10 mg PO HS
atorvastatin 80 MG tablet
80 mg PO HS
metoprolol succinate 50 MG tablet extended release 24 hr
50 mg PO HS
pantoprazole 40 MG tablet,delayed release (DR/EC)
40 mg PO HS
divalproex 500 MG tablet,delayed release (DR/EC)
1,000 mg PO HS
divalproex 500 MG tablet,delayed release (DR/EC)
500 mg PO DAILY
clonazepam 1 MG tablet
1 mg PO BID
metformin 500 mg Tablet
500 mg PO DAILY
acetaminophen 650 mg Tablet Extended Release
1,300 mg PO Q8HPRN PRN (Reason: mild pain)
trazodone 100 mg Tablet
100 mg PO HS
zolpidem 10 mg Tablet
10 mg PO HS
lamotrigine 100 mg Tablet
100 mg PO DAILY
bupropion HCl 200 mg Tablet Sustained-Release 12 Hr
200 mg PO DAILY
quetiapine 400 mg Tablet Extended Release 24 Hr
400 mg PO HS
aspirin [Children's Aspirin] 81 mg Tablet,Chewable
81 mg PO DAILY Qty: 0 0RF
tamsulosin 0.4 mg Capsule
0.4 mg PO DAILY Qty: 30 1RF
oxycodone 5 mg Tablet
5 mg PO Q6HPRN PRN (Reason: severe pain) Qty: 20 0RF
lisinopril 5 mg Tablet
5 mg PO DAILY Qty: 30 1RF
Referrals:
Jermaine Hager PA-C [Family Provider] -
Activity Restrictions/Additional Instructions:
Continue current medication regimen. Please return here for worsening symptoms otherwise follow-up with your supervisor electronics testing
Interventions
Interventions:
*Risk Screen - Suicide Last Done: 06/03/24 17:26
*General Assessment Last Done: 06/03/24 17:26
*Neglect/Abuse Screening Last Done: 06/03/24 17:26
ED- Fall Risk Assessment Last Done: 06/03/24 19:25
*ED COVID-19 Vaccine History Last Done: 06/03/24 19:19
ED- Cardiac Assessment Last Done: 06/03/24 19:24
Discharge Date and Time
Print Language: MALAY
[2024-06-03 20:00] VITALS: BP 137/81
[2024-06-03 21:00] VITALS: BP 138/87
[2024-06-03 21:15] LABS: Troponin I < 0.012 ng/ml
[2024-06-03 22:00] VITALS: BP 133/91
== END 2024-06-03 22:35 | disposition home or self-care (01) ==
LOC: EMR 17:19
PROVIDERS: Emergency Medicine; Physician Assistant; EMERGENCY PHYSICIAN Emergency Medicine; FAMILY PHYSICIAN Physician Assistant Medical
DX: R07.89 Other chest pain (principal); I25.10 Atherosclerotic heart disease of native coronary artery without angina pectoris; I10 Essential (primary) hypertension; E78.00 Pure hypercholesterolemia, unspecified; Z82.49 Family history of ischemic heart disease and other diseases of the circulatory system; Z87.891 Personal history of nicotine dependence; Z95.5 Presence of coronary angioplasty implant and graft
CPT/HCPCS: 99284; 71275; 80053; 84484; 85025; 93005; Q9967

== ENCOUNTER 2024-07-14 12:39 | Emergency (ER) | payer OTHER, SELFPAY ==
[2024-07-14 12:43] VITALS: BP 178/99
[2024-07-14 13:00] VITALS: BP 115/87
[2024-07-14 13:28] VITALS: BP 128/91
[2024-07-14 13:37] LABS: % Basophils 0.4 % (0-2); % Eosinophils 1.4 % (0-6); % Immature Granulocytes 0.4 % (0-0.5); % Lymphocytes 31.9 % (20.5-51.1); % Monocytes 7.2 % (1.7-9.3); % Neutrophils 58.7 % (42.2-75.2); Absolute Eosinophils 0.1 10^3/uL (0-0.7); Absolute Lymphocytes 2.4 10^3/uL (1.2-3.4); Absolute Monocytes 0.6 10^3/uL (0.1-0.6); Absolute Neutrophils 4.5 10^3/uL (1.4-6.5); Hematocrit 43.1 % (39.0-52.0); Hemoglobin 14.2 g/dL (13.0-18.0); Mean Corp Hgb Conc. 32.9 g/dL (33.0-37.0); Mean Corpuscular Hgb 27.4 pg (27.0-31.0); Mean Platelet Volume 9.2 fL (7.4-10.4); Nucleated Red Blood Cells % 0 % (-); Platelet Count 255 10^3/uL (130-400); Red Blood Cell Count 5.19 10^6/uL (4.70-6.10); Red Cell Dist. Width 13.2 % (11.5-14.5); White Blood Cell Count 7.6 10^3/uL (4.8-10.8)
[2024-07-14 13:51] LABS: ALT (SGPT) 28 U/L (0-50); AST (SGOT) 27 U/L (17-59); Albumin 4.4 g/dl (3.5-5.0); Alkaline Phosphatase 79 U/L (38-126); Blood Urea Nitrogen 16 mg/dl (9-20); Calcium 9.7 mg/dl (8.4-10.2); Carbon Dioxide 19 mmol/L (22-30); Chloride 103 mmol/L (98-107); Glucose 129 mg/dl (70-99); Potassium 4.6 mmol/L (3.5-5.1); Sodium 136 mmol/L (135-145); Total Bilirubin 0.5 mg/dl (0.2-1.3); Total Protein 7.3 g/dl (6.3-8.2); eGFR > 60.00
[2024-07-14 14:00] VITALS: BP 127/90
[2024-07-14 14:01] LABS: Troponin I < 0.012 ng/ml
--- NOTE | 2024-07-14 14:24 | ED.GENMED ---
History of Present Illness
General
Chief Complaint: Abdominal Pain
Source: patient and spouse
Time Seen by Provider: 07/14/24 12:51
History of Present Illness
History of Present Illness:
53-year-old male with a history of diabetes, coronary disease, myocardial infarction, CABG who presents with complaints of right side abdominal pain. The patient states that he has had this pain in the past but is only brief and mild. 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 The pain is now improved but still 5 out of 10. The patient admits also for the last week his had pain at a sternotomy scar. He states he is not sure if he hit it or not but he
feels like there is just pain right around the scar itself and is tender to touch. No shortness of breath. No fevers. No vomiting. No melena. No hematochezia. He is diabetic but does not check his sugars
Past History
Past History
ED Past Medical History: CAD, HTN, Hypercholesterolemia and [place]
ED Past Surgical History: Cardiac (Stents X2, CABG)
Social History
Tobacco: Former smoker
Alcohol: None
Drug: Marijuana
Personal: Single
Living: alone
Family History
Family History: Early CAD, CAD and Sudden
Phy Exam
Physical Exam
Physical Exam:
CONSTITUTIONAL Patient alert and oriented to person, place and time. Well-appearing. Vital signs reviewed.
HEAD atraumatic, normocephalic.
EYES eyelids normal to inspection, Pupils equally round and reactive to light, Extraocular muscles intact, Conjunctiva normal, Sclera normal.
NECK normal range of motion, Trachea midline, no jugular venous distention.
RESPIRATORY CHEST No respiratory distress noted, Chest expansion equal, Bilateral breath sounds clear.
CARDIOVASCULAR regular rate and rhythm, Heart sounds normal. Midline sternotomy scar noted with tenderness around and about the sternum
ABDOMEN moderate right lower quadrant tenderness, no distention.
BACK normal inspection, no obvious deformities
UPPER EXTREMITY range of motion normal, Motor strength normal, no cyanosis, no edema.
LOWER EXTREMITY range of motion normal, Motor strength normal, no cyanosis, no edema.
NEURO Speech normal, No focal motor deficits, [place] coma scale 15, Memory normal, Cranial Nerves intact to screening exam.
SKIN skin warm, dry, and normal in color.
PSYCHIATRIC patient oriented to person place and time, Normal affect.
Course
Orders/Labs/Results
Orders:
Orders
07/14/24 12:45
EKG [Electrocardiogram (*1)] Urgent
Reason for Study: Abdominal Pain
07/14/24 12:46
EKG- Treatment ONCE
07/14/24 13:18
Cardiac Monitoring- Treatment ONCE
IV Insert/Care/Rem.- Treatment PRN
O2 Therapy [RESP] Urgent
Titrate/Wean O2 to maintain O2 sat greater than (%): 90
Special Instructions: Maintain sats >/=90%
Pulse Ox/spot Check [RESP] Urgent
Quantity: 1
Special Instructions: ON ROOM AIR
07/14/24 13:26
Complete Blood Count/With Diff Urgent
Comprehensive Metabolic Panel Urgent
Troponin I Urgent
07/14/24 13:34
CR Chest - 2 Views Urgent
Comment:
Reason For Exam: cp, previous sternotomy
07/14/24 13:35
CT Abd/Pel (IV only)-DH only Urgent
Comment:
Reason For Exam: R sided abd pain
Abnormal Lab Results
07/14/24
13:26
MCHC 32.9 L g/dL
(33.0-37.0)
Carbon Dioxide 19 L mmol/L
(22-30)
Glucose 129 H mg/dl
(70-99)
07/14/24 13:26
07/14/24 13:26
Vital Signs
Initial and Last Documented VS:
Initial Vital Signs
Temp Pulse Resp BP Pulse Ox
97.8 F 69 18 178/99 99
07/14/24 12:43 07/14/24 12:43 07/14/24 12:43 07/14/24 12:43 07/14/24 12:43
Last Documented Vital Signs
Temp Pulse Resp BP Pulse Ox
97.8 F 75 18 128/91 98
07/14/24 12:43 07/14/24 14:20 07/14/24 13:30 07/14/24 13:28 07/14/24 13:30
MDM/Problems Addressed
MDM/Problems Addressed:
Abdominal pain
*Radiology
Radiology exam reviewed: preliminary read by ED provider (No free air noted by CT) and radiology read reviewed
*Pulse Oximetry
Patient hypoxic: no
*EKG
Interpreted by ED Provider?: Yes
Interpretation: abnormal
Rate: normal
Rhythm: sinus
Swisher: normal axis
Ischemia: non-specific ST changes
*Coffee Roaster Helper Interpretation
Rate: normal
Interpretation: normal
Rhythm: sinus
*Critical Care Note
Total Time (30-74mins, 75-104mins- exclusive of procedures): Not Applicable
Data Reviewed
Source: patient and significant other
Further Testing Considered But Not Given:
Consider repeat troponin but chest pain has been ongoing 1 week and initial troponin negative. Okay for discharge. CT negative. Patient otherwise appears well. Will recommend MiraLAX twice a day for the next 4 days.
ED Attending Note
-
Portions of this chart may have been created with voice recognition software.� Occasional wrong word or��sound alike� substitutions may have occurred due to the inherent limitations of voice recognition software.
Discharge Plan
Departure
Patient Disposition: Home (Routine Discharge)
Date of Disposition: 07/14/24
Time of Disposition: 15:06
Patient with high blood pressure during this ER visit?: Yes
Discharge Problem:
Abdominal pain, Chest wall pain
Instructions: Costochondritis, Abdominal Pain
Prescriptions:
No Action
clopidogrel 75 MG tablet
75 mg PO DAILY Qty: 90 3RF
hydroxyzine HCl 10 MG tablet
10 mg PO HS
atorvastatin 80 MG tablet
80 mg PO HS
metoprolol succinate 50 MG tablet extended release 24 hr
50 mg PO HS
pantoprazole 40 MG tablet,delayed release (DR/EC)
40 mg PO HS
divalproex 500 MG tablet,delayed release (DR/EC)
1,000 mg PO HS
divalproex 500 MG tablet,delayed release (DR/EC)
500 mg PO DAILY
clonazepam 1 MG tablet
1 mg PO BID
metformin 500 mg Tablet
500 mg PO DAILY
acetaminophen 650 mg Tablet Extended Release
1,300 mg PO Q8HPRN PRN (Reason: mild pain)
trazodone 100 mg Tablet
100 mg PO HS
zolpidem 10 mg Tablet
10 mg PO HS
lamotrigine 100 mg Tablet
100 mg PO DAILY
bupropion HCl 200 mg Tablet Sustained-Release 12 Hr
200 mg PO DAILY
quetiapine 400 mg Tablet Extended Release 24 Hr
400 mg PO HS
aspirin [Children's Aspirin] 81 mg Tablet,Chewable
81 mg PO DAILY Qty: 0 0RF
tamsulosin 0.4 mg Capsule
0.4 mg PO DAILY Qty: 30 1RF
oxycodone 5 mg Tablet
5 mg PO Q6HPRN PRN (Reason: severe pain) Qty: 20 0RF
lisinopril 5 mg Tablet
5 mg PO DAILY Qty: 30 1RF
Referrals:
Jermaine Hager PA-C [Family Provider] -
Activity Restrictions/Additional Instructions:
Please see your doctor in the next 2 to 3 days for follow-up and reevaluation. As discussed I do think it is important to monitor your blood glucose on a more regular basis. Please use MiraLAX twice a day for the next 4 days. Return immediately
for vomiting, fevers, weakness of any kind or any other concerns.
Interventions
Interventions:
*Risk Screen - Suicide Last Done: 07/14/24 12:45
*General Assessment Last Done: 07/14/24 12:45
*Neglect/Abuse Screening Last Done: 07/14/24 12:45
ED- Fall Risk Assessment Last Done: 07/14/24 13:35
*ED COVID-19 Vaccine History Last Done: 07/14/24 12:45
HA-[id number]-[id number] Assessment Last Done: 07/14/24 13:35
Discharge Date and Time
Print Language: MOROCCAN
== END 2024-07-14 15:33 | disposition home or self-care (01) ==
LOC: EMR 12:39
PROVIDERS: EMERGENCY PHYSICIAN Emergency Medicine; FAMILY PHYSICIAN Physician Assistant Medical
DX: R10.9 Unspecified abdominal pain (principal); R07.89 Other chest pain; I10 Essential (primary) hypertension; Z87.891 Personal history of nicotine dependence
CPT/HCPCS: 99285; 71046; 74177; 80053; 84484; 85025; 93005; Q9967

== ENCOUNTER 2024-11-08 09:36 | Emergency (ER) | payer OTHER, SELFPAY ==
[2024-11-08 09:47] VITALS: BP 179/98
--- NOTE | 2024-11-08 10:39 | ED.GENMED ---
History of Present Illness
General
Chief Complaint: Oral/Mouth Problem
Source: patient
Exam Limitations: none
Time Seen by Provider: 11/08/24 10:35
History of Present Illness
History of Present Illness:
See MDM
Past History
Past History
ED Past Medical History: CAD, HTN, Hypercholesterolemia and [place]
ED Past Surgical History: Cardiac (Stents X2, CABG)
Social History
Tobacco: Former smoker
Alcohol: None
Drug: Marijuana
Personal: Single
Living: alone
Family History
Family History: Early CAD, CAD and Sudden
Phy Exam
Physical Exam
Physical Exam:
See MDM
Course
Orders/Labs/Results
Orders:
Orders
11/08/24 10:39
Oxycodone/Acetaminophen [Percocet 5/325] 1 tablet PO NOW STA
Vital Signs
Initial and Last Documented VS:
Initial Vital Signs
Temp Pulse Resp BP Pulse Ox
97.6 F 94 16 179/98 98
11/08/24 09:47 11/08/24 09:47 11/08/24 09:47 11/08/24 09:47 11/08/24 09:47
Last Documented Vital Signs
Temp Pulse Resp BP Pulse Ox
97.6 F 94 16 179/98 98
11/08/24 09:47 11/08/24 09:47 11/08/24 09:47 11/08/24 09:47 11/08/24 09:47
MDM/Problems Addressed
Differential Diagnosis Includes:
HPI and MDM Narrative:
53-year-old male presenting with dental pain. Patient saw his dentist a few days ago and diagnosed with a dental infection. He was placed on amoxicillin and ibuprofen. Patient states he has no pain relief with the Motrin. He called his dentist
emergency department since they will not write for anything stronger
On exam, he has dental caries and erythema along left lower molars. No palpable abscess. Will start Percocet
Physical exam
General: Mildly uncomfortable
HEENT: protecting airway. Dental caries with erythema to gingiva to left lower molars. No palpable abscess
Neck: appears supple
CV: No evidence of cyanosis
Resp: No accessory muscle use
Abd: Non-distended
Extremities: No deformities
Neuro: alert
Psych: Normal affect
Skin: Intact
Problems Addressed including Acute and Chronic Conditions affecting care:
1. Dental pain
Acuity: acute
Prognosis: stable
Details: Pain uncontrolled with Motrin. We discussed continuing Motrin and amoxicillin and will write for short course of Percocet
Differential Diagnosis (but not limited to): Dental caries, apical abscess
Testing considered: CT maxillofacial
Drug therapy (if applicable): OTC meds, please see d/c instruction regarding Rx drugs
Amount and/or Complexity of Data Reviewed
Clinical info obtained from: Patient
External data reviewed: N/A
Labs I independently reviewed (but not limited to): N/A
Radiology: N/A
Pulse Ox: not hypoxic
EKG independently reviewed: N/A
Lease Administration Supervisor: N/A
Critical Care: N/A
Risk of Complication:
Social Determinants of health: Good social support
Discussed with other providers: N/A
Escalation of Care includes Admit/Obs: After being observed in the Emergency Department, pt stable for discharge.
Occasional wrong word or 'sound a like' substitutions may have occurred due to the inherent limitations of voice recognition software. Read the chart carefully and recognize, using context, where substitutions have occurred.
*Critical Care Note
Total Time (30-74mins, 75-104mins- exclusive of procedures): Not Applicable
ED Attending Note
-
Portions of this chart may have been created with voice recognition software.� Occasional wrong word or��sound alike� substitutions may have occurred due to the inherent limitations of voice recognition software.
Discharge Plan
Departure
Patient Disposition: Home (Routine Discharge)
Date of Disposition: 11/08/24
Time of Disposition: 10:40
Patient with high blood pressure during this ER visit?: Yes
Discharge Problem:
Pain, dental
Instructions: Dental Pain (DC)
Prescriptions:
New
oxycodone 5 mg tablet
5 mg PO Q8H PRN (Reason: Pain) Qty: 10 0RF
No Action
clopidogrel 75 MG tablet
75 mg PO DAILY Qty: 90 3RF
hydroxyzine HCl 10 MG tablet
10 mg PO HS
atorvastatin 80 MG tablet
80 mg PO HS
metoprolol succinate 50 MG tablet extended release 24 hr
50 mg PO HS
pantoprazole 40 MG tablet,delayed release (DR/EC)
40 mg PO HS
divalproex 500 MG tablet,delayed release (DR/EC)
1,000 mg PO HS
divalproex 500 MG tablet,delayed release (DR/EC)
500 mg PO DAILY
clonazepam 1 MG tablet
1 mg PO BID
metformin 500 mg Tablet
500 mg PO DAILY
acetaminophen 650 mg Tablet Extended Release
1,300 mg PO Q8HPRN PRN (Reason: mild pain)
trazodone 100 mg Tablet
100 mg PO HS
zolpidem 10 mg Tablet
10 mg PO HS
lamotrigine 100 mg Tablet
100 mg PO DAILY
bupropion HCl 200 mg Tablet Sustained-Release 12 Hr
200 mg PO DAILY
quetiapine 400 mg Tablet Extended Release 24 Hr
400 mg PO HS
aspirin [Children's Aspirin] 81 mg Tablet,Chewable
81 mg PO DAILY Qty: 0 0RF
tamsulosin 0.4 mg Capsule
0.4 mg PO DAILY Qty: 30 1RF
oxycodone 5 mg Tablet
5 mg PO Q6HPRN PRN (Reason: severe pain) Qty: 20 0RF
lisinopril 5 mg Tablet
5 mg PO DAILY Qty: 30 1RF
Activity Restrictions/Additional Instructions:
Please return for any worsening symptoms.
You may return at any time if you have further concerns.
Please follow up with your dentist at the first available appointment, preferably this week.
Thank you for choosing [facility].
Interventions
Interventions:
*Risk Screen - Suicide Last Done: 11/08/24 09:47
*General Assessment Last Done: 11/08/24 09:47
*Neglect/Abuse Screening Last Done: 11/08/24 09:47
Discharge Date and Time
Print Language: SRI LANKAN
[2024-11-08] MEDS: PERCOCET 5/325 1 TABLET PO (10:54)
== END 2024-11-08 11:05 | disposition home or self-care (01) ==
LOC: EMR 09:36
PROVIDERS: EMERGENCY PHYSICIAN Student in an Organized Health Care Education/Training Program; FAMILY PHYSICIAN Physician Assistant Medical
DX: K08.89 Other specified disorders of teeth and supporting structures (principal); I10 Essential (primary) hypertension; Z87.891 Personal history of nicotine dependence
CPT/HCPCS: 99283

== ENCOUNTER 2025-03-30 01:37 | Observation (INO) | payer OTHER, SELFPAY ==
[2025-03-29 20:16] VITALS: BP 154/85
[2025-03-29 20:27] VITALS: BP 128/76
[2025-03-29 20:30] LABS: % Basophils 0.3 % (0-2); % Eosinophils 3.8 % (0-6); % Immature Granulocytes 0.9 % (0-0.5); % Lymphocytes 28.4 % (20.5-51.1); % Monocytes 5.7 % (1.7-9.3); % Neutrophils 60.9 % (42.2-75.2); Absolute Eosinophils 0.5 10^3/uL (0-0.7); Absolute Immature Granulocytes 0.1 10^3/uL (0-0.05); Absolute Lymphocytes 3.3 10^3/uL (1.2-3.4); Absolute Monocytes 0.7 10^3/uL (0.1-0.6); Absolute Neutrophils 7.1 10^3/uL (1.4-6.5); Hemoglobin 13.8 g/dL (13.0-18.0); Mean Corp Hgb Conc. 34.5 g/dL (33.0-37.0); Mean Corpuscular Hgb 29.2 pg (27.0-31.0); Mean Corpuscular Volume 84.7 fL (80.0-94.0); Mean Platelet Volume 9.4 fL (7.4-10.4); Nucleated Red Blood Cells % 0 % (-); Platelet Count 212 10^3/uL (130-400); Red Blood Cell Count 4.72 10^6/uL (4.70-6.10); Red Cell Dist. Width 14.9 % (11.5-14.5); White Blood Cell Count 11.7 10^3/uL (4.8-10.8)
[2025-03-29 20:43] LABS: ALT (SGPT) 22 U/L (0-50); AST (SGOT) 21 U/L (17-59); Albumin 4.2 g/dl (3.5-5.0); Alkaline Phosphatase 57 U/L (38-126); Blood Urea Nitrogen 9 mg/dl (9-20); Calcium 9.6 mg/dl (8.4-10.2); Carbon Dioxide 25 mmol/L (22-30); Chloride 110 mmol/L (98-107); Glucose 125 mg/dl (70-99); Potassium 4.5 mmol/L (3.5-5.1); Sodium 141 mmol/L (135-145); Total Bilirubin 0.3 mg/dl (0.2-1.3); Total Protein 6.9 g/dl (6.3-8.2); eGFR > 60.00
[2025-03-29 20:53] LABS: Troponin I < 0.012 ng/ml
[2025-03-29 21:00] VITALS: BP 117/82
--- NOTE | 2025-03-29 21:12 | ED.GENMED ---
History of Present Illness
General
Chief Complaint: Chest Pain
Source: patient
Exam Limitations: none
Time Seen by Provider: 03/29/25 20:35
Nursing documentation reviewed up to this point in time: agreed with
History of Present Illness
History of Present Illness:
Patient is a 54-year-old male with history of hypertension hyperlipidemia AK NSTEMI , stents, CABGx2, NIDDM presents to the ER for evaluation. Patient has had intermittent chest pain for the past 1 month however today it has been persistent since 1
PM. He denies any injury. He has had increasing shortness of breath with exertion also for the past month. He is due to see cardiology Dr. Lino 04/21. He is on ASA/plavix and his other medications. He took one SL Ntg and this did not help.
He did take his 1 baby aspirin today
Past History
Past History
ED Past Medical History: CAD, HTN, Hypercholesterolemia and AK
ED Past Surgical History: Cardiac (Stents X2, CABG)
Social History
Tobacco: Former smoker
Alcohol: None
Drug: Marijuana
Personal: Single
Living: alone
Family History
Family History: Early CAD, CAD and Sudden
Review of Systems
Review of Systems
Allergies reviewed?: Yes
All Other Systems: ROS reviewed and negative except as documented in HPI and ROS
Constitutional: Reports no symptoms; Denies fever, fatigue or chills
Respiratory: Reports trouble breathing
Cardiac: Reports chest pain
ABD/GI: Reports no symptoms
: Reports no symptoms
Musculoskeletal: Reports no symptoms
Skin: Reports no symptoms
Neurological: Reports no symptoms
Psychiatric: Reports no symptoms
Phy Exam
General Physical Exam
General Presentation: no apparent distress
General age: appears stated age
General Skin: warm and dry
General Habitus: obese
General Mental: alert
General Hydration: appears well hydrated
Cardiovascular Exam
Cardiovascular Exam: regular rate/rhythm, no murmur and normal peripheral pulses
Pulmonary Exam
Pulmonary Exam: lungs clear and no respiratory distress
Neurological Exam
Neurological Exam: alert and oriented x3
Musculoskeletal Exam
Musculoskeletal Exam: full ROM
Skin Exam
Skin Exam: normal color and warm/dry
Psychiatric Exam
Psychiatric Exam: normal mood/affect
Scores
Heart Score for Chest Pain Patients
STEMI patient?: Not applicable
Course
Orders/Labs/Results
Orders:
Orders
03/29/25 20:11
Electrocardiogram (*1) Urgent
Reason for Study: Chest Pain
03/29/25 20:12
EKG- Treatment ONCE
03/29/25 20:22
Complete Blood Count/With Diff Urgent
Comprehensive Metabolic Panel Urgent
Troponin I Urgent
03/29/25 21:05
Chest [CR Chest - 2 Views ] Urgent
Comment:
Reason For Exam: cp
03/29/25 21:29
EKG- Treatment ONCE
03/29/25 23:00
Electrocardiogram (*1) Stat
Reason for Study: Other
Other Reason for Exam: chest pain
03/29/25 23:02
Troponin I Urgent
Abnormal Lab Results
03/29/25
20:22
WBC 11.7 H 10^3/uL
(4.8-10.8)
RDW 14.9 H %
(11.5-14.5)
Abs Immat Gran (auto) 0.1 H 10^3/uL
(0-0.05)
Absolute Neuts (auto) 7.1 H 10^3/uL
(1.4-6.5)
Absolute Monos (auto) 0.7 H 10^3/uL
(0.1-0.6)
Immature Gran % 0.9 H %
(0-0.5)
Chloride 110 H mmol/L
(98-107)
Glucose 125 H mg/dl
(70-99)
03/29/25 20:22
03/29/25 20:22
Vital Signs
Initial and Last Documented VS:
Initial Vital Signs
Temp Pulse Resp BP Pulse Ox
98.0 F 74 17 154/85 99
03/29/25 20:16 03/29/25 20:16 03/29/25 20:16 03/29/25 20:16 03/29/25 20:16
Last Documented Vital Signs
Temp Pulse Resp BP Pulse Ox
98.0 F 71 19 117/82 95
03/29/25 20:16 03/29/25 21:00 03/29/25 21:00 03/29/25 21:00 03/29/25 21:00
MDM/Problems Addressed
MDM/Problems Addressed:
As documented patient is a 54-year-old male with past medical history of CABG x2 24 March 2024 diabetes hypertension hypercholesteremia presents to the ER for chest pain off-and-on for the past month however patient reports it was more constant today
and this is the similar pain that brought him in when he needed his bypass surgery. He does report that he took his aspirin today and did take a nitro without relief. He was given additional aspirin here will try another nitro. He had 2 cardiac
troponins which were negative here however with concerning story of pain similar to his previous type pain would recommend admission cases and the attending
Chronic conditions affecting care:
CABG htn diabetes high cholesterol
*Radiology
Radiology exam reviewed: radiology read reviewed
*Pulse Oximetry
Patient hypoxic: no
*EKG
Interpreted by ED Provider?: Yes
Heart Rate: 75
Rate: normal
Rhythm: sinus
Ischemia: non-specific ST changes
*Critical Care Note
Total Time (30-74mins, 75-104mins- exclusive of procedures): Not Applicable
Data Reviewed
Review of Other/Old Records Reveals: Operative Reports and Discharge Summary
Source: patient
ED Attending Note
-
Portions of this chart may have been created with voice recognition software.� Occasional wrong word or��sound alike� substitutions may have occurred due to the inherent limitations of voice recognition software.
Discharge Plan
Departure
Patient Disposition: Admit
Date of Disposition: 03/30/25
Time of Disposition: 00:00
Admit to: Telemetry
Admit to doctor: hospitalist
Presentation/result/management discussed w/ accepting MD/DO: Hospitalist
Patient with high blood pressure during this ER visit?: No
Condition: Fair
Covid-19: Not Applicable
Discharge Problem:
Chest pain
Prescriptions:
No Action
clopidogrel 75 MG tablet
75 mg PO DAILY Qty: 90 3RF
hydroxyzine HCl 10 MG tablet
10 mg PO HS
atorvastatin 80 MG tablet
80 mg PO HS
metoprolol succinate 50 MG tablet extended release 24 hr
50 mg PO HS
pantoprazole 40 MG tablet,delayed release (DR/EC)
40 mg PO HS
divalproex 500 MG tablet,delayed release (DR/EC)
1,000 mg PO HS
divalproex 500 MG tablet,delayed release (DR/EC)
500 mg PO DAILY
clonazepam 1 MG tablet
1 mg PO BID
metformin 500 mg Tablet
500 mg PO DAILY
acetaminophen 650 mg Tablet Extended Release
1,300 mg PO Q8HPRN PRN (Reason: mild pain)
trazodone 100 mg Tablet
100 mg PO HS
zolpidem 10 mg Tablet
10 mg PO HS
lamotrigine 100 mg Tablet
100 mg PO DAILY
bupropion HCl 200 mg Tablet Sustained-Release 12 Hr
200 mg PO DAILY
quetiapine 400 mg Tablet Extended Release 24 Hr
400 mg PO HS
aspirin [Children's Aspirin] 81 mg Tablet,Chewable
81 mg PO DAILY Qty: 0 0RF
tamsulosin 0.4 mg Capsule
0.4 mg PO DAILY Qty: 30 1RF
oxycodone 5 mg Tablet
5 mg PO Q6HPRN PRN (Reason: severe pain) Qty: 20 0RF
lisinopril 5 mg Tablet
5 mg PO DAILY Qty: 30 1RF
oxycodone 5 mg tablet
5 mg PO Q8H PRN (Reason: Pain) Qty: 10 0RF
Referrals:
Yosvany Cagle MD [Primary Care Provider, Family Practice]
Interventions
Interventions:
*Risk Screen - Suicide Last Done: 03/29/25 20:17
*General Assessment Last Done: 03/29/25 20:17
*Neglect/Abuse Screening Last Done: 03/29/25 20:17
*ED COVID-19 Vaccine History Last Done: 03/29/25 20:17
ED- Cardiac Assessment Last Done: 03/29/25 21:13
Discharge Date and Time
Print Language: GERMAN
[2025-03-29 21:13] VITALS: BMI 37.9
[2025-03-29 23:51] LABS: Troponin I < 0.012 ng/ml
[2025-03-30] MEDS: NITROSTAT (SUBLINGUAL) 0.4 MG SL (00:12)
[2025-03-30] MEDS: NSS 500 IV (00:12)
[2025-03-30] MEDS: LOW STRENGTH ASPIRIN 243 MG PO (00:13)
--- NOTE | 2025-03-30 00:35 | HPS.HSE ---
Family Physician
-
Family Physician: Yosvany Cagle
Chief Complaint
-
Chest pain
History of Present Illness
This is a 54-year-old with past medical history significant for bipolar disorder, hypertension, diabetes, hyperlipidemia, CAD status post multiple stents in the past and most recently two-vessel CABG in March 2024 in the setting of chest pain with
NSTEMI presenting to the emergency department with episode of chest pain.
Reports chest pain for the last 1 months which has been intermittent but was constant today. It has been slowly getting worse. He did take nitroglycerin at home without relief. Reports dyspnea on exertion. States that this is similar to his
episode of KS a year ago with resultant CABG.
Patient reports that today's chest pain has ranged from 328. No known exacerbating or relieving factors. He reports that is substernal and radiating bilaterally to the sides. Denies any radiation to the arm back or jaws shoulders etc. He denies
any nausea or vomiting. He denies diaphoresis. He reports chronic dyspnea on exertion since his surgery which has not changed. He denies any edema in his lower extremities. Denies palpitations lightheadedness or dizziness. He says the pain
again is reminiscent of his presentation a year ago for which she had a CABG.
Patient reports compliance with his medication including his Plavix aspirin and statin as well as these beta-blockade.
In the emergency department he was afebrile, blood pressure was 126/74 with a pulse of 71 satting 98% on room air.
Troponin was negative. ECG showed normal sinus rhythm with a rate of [address] or T wave changes. Second troponin was also negative.
Electrolytes were within normal limits. BUN/creatinine were normal. CBC was normal. chest x-ray shows no acute infiltrate.
Medical History
Past Medical History
Past Medical History: Reports Other
Additional Past Medical History:
HTN
HLD
CAD/stent circumflex, RCA, 2016, OM 24 March 2021, history of CAD with LAD disease
Former smoker 35-year 1 pack a day quit 10 years ago
arthritis
eczema
bipolar disorder
depression
Morbid obesity
history of COVID
hemorrhoids
Past Surgical History: Reports Other
Additional Past Surgical History:
CABG x 2 (DEBRA to LAD; Y JAS to OM)
Knee arthroscopy 20 years ago
Undescended testicle repair 35 years ago
PTCA/stent circumflex, RCA 08/08/2016, stent OM 11/28/2020
Left knee meniscus repair 2020
Social History
Tobacco: Former Smoker (Former smoker 35-year 1 pack a day quit 10 years ago)
Drug: None
Personal: Other (Girlfriend Marianela)
Living: With Family (Girlfriend Marianela)
Family History
Family History: CAD (Mother and father CAD/CABG both 74) and Other (Brother history multiple CVA starting at age 30 age 65, brother drug overdose, 1 brother/1 sister estranged from)
Allergies / Home Medications
Allergies reflects when Allergies were last updated in [facility].
Home Medications with original date entered in [facility]
Allergy/Medication List:
Allergies
Allergy/AdvReac Type Severity Reaction Status Date / Time
No Known Allergies Allergy Verified 03/29/24 13:17
Home Medications
clopidogrel 75 mg tablet 75 mg PO DAILY ##90 08/09/16
hydroxyzine HCl 10 mg tablet 10 mg PO HS 03/30/17
lisinopril 40 mg tablet 20 mg PO HS 03/30/17
atorvastatin 80 mg tablet 80 mg PO HS 08/21/17
metoprolol succinate 50 mg tablet,extended release 24 hr 50 mg PO HS 08/21/17
nitroglycerin 0.4 mg sublingual tablet 0.4 mg sublingual [id number] PRN chest pain 09/14/18
pantoprazole 40 mg tablet,delayed release 40 mg PO HS 09/14/18
clonazepam 1 mg tablet 1 mg PO BID 04/12/21
divalproex 500 mg tablet,delayed release 1,000 mg PO HS 04/12/21
divalproex 500 mg tablet,delayed release 500 mg PO DAILY 04/12/21
acetaminophen 650 mg tablet,extended release 1,300 mg PO Q8HPRN PRN mild pain 03/29/24
bupropion HCl 200 mg tablet,12 hr sustained-release 200 mg PO DAILY 03/29/24
isosorbide mononitrate 60 mg tablet,extended release 24 hr 60 mg PO DAILY 03/29/24
lamotrigine 100 mg tablet 100 mg PO DAILY 03/29/24
metformin 500 mg tablet 500 mg PO DAILY 03/29/24
quetiapine 400 mg tablet,extended release 24 hr 400 mg PO HS 03/29/24
trazodone 100 mg tablet 100 mg PO HS 03/29/24
zolpidem 10 mg tablet 10 mg PO HS 03/29/24
Review of Systems
-
History Source: Patient
A 12 point ROS was completed and negative except as noted: Yes
Constitutional: Denies Fever, Fatigue or Chills
EENT: Denies Sore Throat or Runny Nose
Respiratory: Denies Cough or Trouble Breathing
Cardiac: Reports Chest Pain (Midsternal); Denies Diaphoresis, Palpitations or Syncope
Abdomen/GI: Reports Other (Indigestion today); Denies Abdominal Pain, Nausea, Vomiting, Diarrhea, Constipated, Bloody Stools or Black Stools
: Denies Dysuria, Frequency, Flank Pain, Incontinence, Difficulty Voiding or Urgency
Musculoskeletal: Denies Joint Pain or Edema
Skin: Denies Itching or Rash
Neurological: Denies Dizzy, Headache or Weakness
Endocrine: Reports No Symptoms
Hematologic/Lymphatic: Reports No Symptoms
Psych: Reports Calm
Physical Exam
Vital Signs
Vital Signs
Temp Pulse Resp BP Pulse Ox
98.0 F 71 19 126/74 95
03/29/25 20:16 03/29/25 21:00 03/29/25 21:00 03/30/25 00:12 03/29/25 21:00
Physical Exam
General: Conversant, Pain (2/10) and Morbidly Obese; No Chills
HEENT: NormoCephalic, Anicteric, Moist mucous membranes, PERRLA, [place] Conjunctivae and No Ptosis
Respiratory: Clear; No Wheezes, Rales or Rhonchi
Cardiac: S1/S2 and Regular Rhythm; No Murmur, Rub, Gallop or Peripheral Edema
Breast: Deferred by me
GI: Soft, Non Tender, Non Distended, Normal Bowel Sounds and No Hepatosplenomegaly
Genito-urinary: Deferred by me
Musculoskeletal: No Clubbing, No Cyanosis and No Edema
Skin: Warm and Dry; No Rash
Neuro: AO x 3, No Motor Deficits, Nonfocal/grossly intact, Cranial Nerves Intact and No Sensory Deficits; No Slurred Speech, Facial Droop or Tremors
Psych: Calm
Laboratory Results
-
03/29/25 20:22
03/29/25 20:22
Laboratory Results
Total Bilirubin 0.3 mg/dl (0.2-1.3) 03/29/25 20:22
AST 21 U/L (17-59) 03/29/25 20:22
ALT 22 U/L (0-50) 03/29/25 20:22
Alkaline Phosphatase 57 U/L (38-126) 03/29/25 20:22
Troponin I < 0.012 ng/ml 03/29/25 23:02
Data Reviewed
-
Diagnostic Radiology: Report Reviewed by me
Medical Tests (Nuc Med, Echo, EKG etc): Image Personally Visualized and interpreted
Lab Data: Labs Reviewed by me
Old Records: Reviewed
Impression/Plan
-
IMPRESSION:
54-year-old with history of CAD status post stenting, recent CABG for NSTEMI in 2023 presenting to the emergency department with intermittent chest pain for the last month and a more persistent chest pain today for the last 24 hours. He says the
pain has ranged from 328 and currently a fall and not improved after sublingual nitroglycerin. The pain is nonradiating substernal. There is no diaphoresis or nausea or vomiting. While having a discussion with me the patient did appear
comfortable and not in any acute distress. ECG shows normal sinus rhythm rate of 66 and no ischemia. Troponin is negative x 2. Chest x-ray is clear. Electrolytes were normal BUN/creatinine normal and CBC normal without any new anemia. Given
history patient is highly suspicious for CAD but does not appear to have any ischemic damage at this time. Cannot rule out GERD or peptic ulcer disease but pain seems atypical for that.
PLAN:
Chest pain -atypical chest pain in patient with severe coronary artery disease status post CABG and prior stenting
-Admit to telemetry observation
-Cycle cardiac enzymes
-Continue dual antiplatelet therapy with aspirin and Plavix, continue statin
-Patient did not improve with nitroglycerin, will give Dilaudid analgesia
-Nitroglycerin if chest pain recurs
-Will continue low-cholesterol diet for now, if negative troponin, consider echo and stress test versus going straight to invasive ischemic testing depending on cardiology recommendations
-Cardiology consultation
Diabetes
-Continue metformin 500 daily for now
Bipolar
-Continue his Depakote 500 3 times daily
-Continue Wellbutrin 200 daily
-Continue lamotrigine 100
-Hydroxyzine 10
-Clonazepam 1.5
DVT prophylaxis�Lovenox subcu
CODE STATUS�full code
--- NOTE | 2025-03-30 01:00 | EDRN ---
Patient ambulated to the restroom and back in bed resting comfortably at this time, waiting on admission and bed
--- NOTE | 2025-03-30 02:49 | PTCARENOTE ---
Patient arrived from ED to 321 via stretcher, alert and oriented, pleasant, girlfriend at bedside. Patient reports chest pain is better and has subsided some. At worst, pain has been an 8 at home. Now reports chest pain is sitting at a 2. Also c/o
B/L chronic shoulder pain that is tolerable at this time. VSS. Call dickson at bedside. Will monitor.
[2025-03-30 03:32] VITALS: BP 168/87
[2025-03-30] MEDS: DILAUDID 0.5 MG IV (05:12)
[2025-03-30 05:18] LABS: HDL Cholesterol 30 mg/dl; LDL Cholesterol, Calculated 21 mg/dl; Total Cholesterol 87 mg/dl (50-199); Triglyceride 180 mg/dl (10-149); Very Low Density Lipoprotein 36 mg/dl (0-30)
[2025-03-30 05:29] LABS: Troponin I < 0.012 ng/ml
[2025-03-30 06:00] VITALS: BMI 37.0
[2025-03-30 07:37] VITALS: BP 141/80
[2025-03-30] MEDS: LOW STRENGTH ASPIRIN 81 MG PO (08:00)
[2025-03-30] MEDS: GLUCOPHAGE 500 MG PO (08:00)
[2025-03-30] MEDS: ZETIA 10 MG PO (08:00)
[2025-03-30] MEDS: KLONOPIN 1 MG PO ×2 (08:00→21:40)
[2025-03-30] MEDS: DEPAKOTE (12 HR RELEASE) 1000 MG PO ×3 (08:00→21:41)
[2025-03-30] MEDS: PLAVIX 75 MG PO (08:00)
[2025-03-30] MEDS: WELLBUTRIN SR (12 hour sustained release) 200 MG PO (08:01)
[2025-03-30] MEDS: LAMICTAL 100 MG PO (08:01)
--- NOTE | 2025-03-30 08:49 | CON.CAR ---
Addendum entered and electronically signed by Kraig Chapa MD 03/30/25 12:32:
Patient seen and examined in collaboration with PGY 2 resident; agree with below.
- 54-year-old male with coronary artery disease status-post stenting and two-vessel CABG in 2023, hypertension, hyperlipidemia, diabetes, obesity, bipolar disorder, and significant anxiety presenting with chest pain.
- The patient states that the chest pain is similar to the pain he experienced prior to undergoing CABG, but less intense.
- Cardiac examination: Heart regular rate and rhythm, normal S1 and S2, no murmurs/rubs/gallops; lungs clear to auscultation bilaterally; no edema.
- The patient's cardiac enzymes are negative; EKG unremarkable/unchanged.
- Given the patient's extensive cardiac history, recommend that the patient undergo a repeat echocardiogram (primarily to rule out pericardial effusion if his symptoms are related to pericarditis) and a stress test for ischemic evaluation.
- NPO after midnight.
- shelter monitor.
- Will follow.
Original Note:
Documented by User: Stephane Medina MD, Resident 03/30/25 12:14
Consultation
Consultation Request
Date/Time Consultation Requested: 03-30-25
Date/Time Consultation Performed: 03-30-25
Requesting Provider: Dr. Reuben Fuentes
Performing Provider: Dr. Kraig Cahpa
Reason for Consultation: Chest pain
Medical History
-
Chief Complaint: Intermittent chest pain for the past month, now persistent
History of Present Illness:
Jermaine Kuhn, 54-year-old male with medical history significant for CAD s/p multiple stents, 2-vessel CABG in 2023, unmedicated hypothyroidism and poorly controlled anxiety disorder, is admitted to the hospital for evaluation of chest pains. He
started experiencing non-radiating intermittent chest pains a month ago, which have continued to become more frequent. Notes that these are similar to how he felt prior to the CABG. Previously would come and go in about 5 minutes but now is
persistent. Not associated with activity, deep inspiration, laying flat, foods, or any discernable triggers. Not improved with nitroglycerin, rest, tums, or any thing else. He is able to walk a mile or so following his bypass, and this does not
bring on the pain. Neither does doing activities at home. The pain tends to come on randomly with no clear triggers. Got worse over the past week, and has now been persistent for the past day. The patient notes that the pain seems to have coincided
with the tapering of clonazepam, which was started about 5-weeks ago. Last week, he was getting on-boarded for a new job and that made him feel 'shaky all over', and reportedly made his chest pains worse. Of note, he does not take levothyroxine
because he has breakfast after he wakes without taking the medication, which is supposed to be taken on an empty stomach. The pain has improved since he has been admitted.
Past Medical History
Past Medical History: CAD (CAD/stent circumflex, RCA, 2016, OM 24 March 2021, history of CAD with LAD disease) and Other (former smoker [id number]; arthritis; eczema; severe anxiety; panic disorder; bipolar disorder; depression; Morbid obesity;
hemorrhoids)
Past Surgical History: Cardiac (2-vessel CABG in 2023) and Orthopedic (left knee)
Social History
Tobacco: Former Smoker (quit 10 years ago; [id number] hx)
Alcohol: None
Personal: Single
Living: With Family (girlfriend)
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
Family History
Family History: Reviewed & Not Pertinent
Allergies / Home Medications
Allergy/AdvReac Type Severity Reaction Status Date / Time
No Known Allergies Allergy Verified 11/08/24 09:47
�Medication �Instructions �Recorded �Confirmed �Type
clopidogrel 75 mg tablet 75 mg PO DAILY ##90 08/09/16 03/30/25 Rx
hydroxyzine HCl 10 mg tablet 10 mg PO HS Mental Health/Anxiety 03/30/17 03/30/25 History
atorvastatin 80 mg tablet 80 mg PO HS High Cholesterol 08/21/17 03/30/25 History
metoprolol succinate 50 mg 50 mg PO HS Heart Disease/Condition 08/21/17 03/30/25 History
tablet,extended release 24 hr
pantoprazole 40 mg tablet,delayed 40 mg PO HS Gastrointestinal Issue 09/14/18 03/30/25 History
release
clonazepam 1 mg tablet 1 mg PO BID Mental Health/Anxiety 04/12/21 03/30/25 History
divalproex 500 mg tablet,delayed 1,000 mg PO HS Mental 04/12/21 03/30/25 History
release Health/Anxiety
divalproex 500 mg tablet,delayed 500 mg PO DAILY Mental 04/12/21 03/30/25 History
release Health/Anxiety
bupropion HCl 200 mg tablet,12 hr 200 mg PO DAILY Mental 03/29/24 03/30/25 History
sustained-release Health/Anxiety
lamotrigine 100 mg tablet 100 mg PO DAILY Mental 03/29/24 03/30/25 History
Health/Anxiety
metformin 500 mg tablet 500 mg PO DAILY Diabetes 03/29/24 03/30/25 History
aspirin 81 mg chewable tablet 81 mg PO DAILY Heart 04/08/24 03/30/25 Rx
(Children's Aspirin) disease/condition #0 tabs
ezetimibe 10 mg tablet (Zetia) 10 mg PO HS 03/30/25 03/30/25 History
Review of Systems
-
History Source: Patient
Constitutional: No Symptoms
EENT: No Symptoms
Respiratory: No Symptoms
Cardiac: Chest Pain (per HPI)
Abdomen/GI: No Symptoms
: No Symptoms
Musculoskeletal: No Symptoms
Skin: No Symptoms
Neurological: No Symptoms
Endocrine: No Symptoms
Hematologic/Lymphatic: No Symptoms
Physical Exam
Vital Signs
Temp Pulse Resp BP Pulse Ox
97.6 F 66 16 141/80 97
03/30/25 07:37 03/30/25 07:37 03/30/25 07:37 03/30/25 07:37 03/30/25 07:37
Lab Results
03/29/25 20:22
03/29/25 20:22
Troponin I < 0.012 ng/ml 03/30/25 04:42
Physical Exam
General: No Apparent Distress and Comfortable
HEENT: Normocephalic, Anicteric, Moist Mucous Membranes and Atraumatic
Respiratory: Clear and Non Labored Respirations
Cardiac: S1/S2 and Regular Rhythm; Negative Murmur or Rub
GI: Soft, Non Tender and Non Distended
Genito-urinary: No Costovertebral Tender
Musculoskeletal: No Clubbing, No Cyanosis and No Edema
Skin: Warm and Dry
Neuro: Awake, Alert, Oriented, No Motor Deficits and Nonfocal/Grossly Intact
Hematologic/Lymphatic: No Lymphadenopathy
Psych: Other (anxious appearing; pressured speech)
Impression / Plan
-
Atypical chest pain
- Similar to how he felt before requiring CABG.
- Troponin x3 negative; ECG x2 with no changes suggestive of ischemia.
- Blood work broadly unremarkable except for thyroid dysfunction.
- LDL at goal of <55.
- Pain is not worsened by exertion, deep inspiration, laying flat, activity, positional, or with foods.
- Not improved with nitroglycerin, rest, tums, or anything else.
- No recent changes to his health except for the taper of clonazepam.
- Differential includes an ischemic etiology and pericarditis.
- Possible that this is due to increased anxiety secondary to the taper of clonazepam, but cannot rule out a cardiac process.
- Possible that the uncontrolled hypothyroidism might be contributory.
- Will get echocardiography to evaluate for pericardial effusion.
- Also check nuclear stress test to rule out ischemic process; NPO after midnight.
Coronary artery disease s/p multiple stents
2-vessel CABG in 2023
Hyperlipidemia
- Echo on 04-08-24: EF 50% with mild inferoseptal and anteroseptal hypokinesis.
- Appears to be stable with negative trops and ECG.
- LDL at goal <55.
- Will get outpatient echo, per above.
Hypothyroidism, unmedicated: Can take levothyroxine on an empty stomach any time during the day; does not need to be in the morning; patient expressed understanding.
Severe anxiety, poorly controlled
Bipolar disorder
Tobacco use disorder, [id number]-[id number] history, quit
Arthritis
Eczema
GERD
Obesity secondary to excess calorie intake
Hemorrhoids

Documented by User: Kraig Chapa MD 03/30/25 12:30
Impression / Plan
-
Chest pain
- Similar to how he felt before requiring CABG.
- Troponin x3 negative; ECG x2 with no changes suggestive of ischemia.
- Blood work broadly unremarkable except for thyroid dysfunction.
- LDL at goal of <55.
- Pain is not worsened by exertion, deep inspiration, laying flat, activity, positional, or with foods.
- Not improved with nitroglycerin, rest, tums, or anything else.
- No recent changes to his health except for the taper of clonazepam.
- Differential includes an ischemic etiology and pericarditis.
- Possible that this is due to increased anxiety secondary to the taper of clonazepam, but cannot rule out a cardiac process.
- Possible that the uncontrolled hypothyroidism might be contributory.
- Will get echocardiography to evaluate for pericardial effusion.
- Also check nuclear stress test to rule out ischemic process; NPO after midnight.
Coronary artery disease s/p multiple stents
2-vessel CABG in 2023
Hyperlipidemia
- Echo on 04-08-24: EF 50% with mild inferoseptal and anteroseptal hypokinesis.
- Appears to be stable with negative trops and ECG.
- LDL at goal <55.
- Will get outpatient echo, per above.
Hypothyroidism, unmedicated: Can take levothyroxine on an empty stomach any time during the day; does not need to be in the morning; patient expressed understanding.
Severe anxiety, poorly controlled
Bipolar disorder
Tobacco use disorder, [id number] history, quit
Arthritis
Eczema
GERD
Obesity secondary to excess calorie intake
Hemorrhoids
Data Reviewed
-
EKG: Tracing Personally Visualized and interpreted (EKG: Sinus rhythm at [address]/T wave abnormality.)
Radiology: Report Reviewed by me (Chest x-ray (03/29/2025): No acute cardiopulmonary process.)
Labs: Labs Reviewed by me
[2025-03-30 09:04] LABS: Free T4 1.04 ng/dl (0.78-2.19)
[2025-03-30 09:51] LABS: Glycohemoglobin (HgbA1c) 6.7 % (4.0-5.6)
[2025-03-30 11:12] VITALS: BP 133/87
--- NOTE | 2025-03-30 11:28 | W.PN.UPDATE ---
Update Note
Progress Note Update
Seen and examined
Overnight physician. Patient states of significant decrease in chest pain. States he has never been same after surgery. Currently under increasing with of stress and anxiety. Working with outpatient psychiatry and his Klonopin dose has been
slowly down titrating. States currently deciding to switch jobs. Denies any palpitation. Does states of intermittent shortness of breath. He denies any heavy trauma or significant exercise. Currently does look comfortable
General: Conversant, Pain (11/01 today) and Morbidly Obese;
HEENT: NormoCephalic, Anicteric, Moist mucous membranes, [employer] Conjunctivae and No Ptosis
Respiratory: Clear; No Wheezes, Rales or Rhonchi
Cardiac: S1/S2 and Regular Rhythm; No Murmur, Rub, Gallop or Peripheral Edema
GI: Soft, Non Tender, Non Distended, Normal Bowel Sounds and No Hepatosplenomegaly
Genito-urinary: Deferred by me
Musculoskeletal: No Clubbing, No Cyanosis and No Edema
Skin: Warm and Dry; No Rash
Neuro: AO x 3, No Motor Deficits, Nonfocal/grossly intact, Cranial Nerves Intact and No Sensory Deficits; No Slurred Speech, Facial Droop or Tremors
Psych: Calm
54-year-old with history of CAD status post stenting, recent CABG for NSTEMI in 2023 presenting to the emergency department with intermittent chest pain for the last month and a more persistent chest pain today for the last 24 hours. He says the
pain has ranged from 328 and currently a fall and not improved after sublingual nitroglycerin. The pain is nonradiating substernal. There is no diaphoresis or nausea or vomiting. While having a discussion with me the patient did appear
comfortable and not in any acute distress. ECG shows normal sinus rhythm rate of 66 and no ischemia. Troponin is negative x 2. Chest x-ray is clear. Electrolytes were normal BUN/creatinine normal and CBC normal without any new anemia. Given
history patient is highly suspicious for CAD but does not appear to have any ischemic damage at this time. Cannot rule out GERD or peptic ulcer disease but pain seems atypical for that.
PLAN:
Chest pain -atypical chest pain in patient with severe coronary artery disease status post CABG and prior stenting
-Cycle cardiac enzymes-troponin was negative x 3.
-Continue dual antiplatelet therapy with aspirin and Plavix, continue statin
-Patient did not improve with nitroglycerin, will give Dilaudid analgesia
-Nitroglycerin if chest pain recurs. ECHO.
-Will continue low-cholesterol diet for now, consider echo and stress test versus going straight to invasive ischemic testing depending on cardiology recommendations
-Cardiology consultation
Diabetes melitis type II
- Hold metformin for now in case plan for invasive procedure
Bipolar
Severe anxiety disorder
-Continue his Depakote 500 3 times daily
-Continue Wellbutrin 200 daily
-Continue lamotrigine 100
-Hydroxyzine 10
-Clonazepam 1 milligram twice daily
Morbid obesity due to excess calories
Primary hypertension
Continue with Toprol
Hyperlipidemia
Continue with statin
Hypothyroidism
TSH 13.1
Start patient on Synthroid 25 mcg
Repeat TFTs as outpatient for 6 weeks
DVT prophylaxis�Lovenox subcu
CODE STATUS�full code
Discussed with family about bedside in detail
[2025-03-30 12:57] LABS: D-Dimer < 0.27 ug/mlFEU (0.00-0.50)
[2025-03-30 15:36] VITALS: BP 147/96
[2025-03-30] MEDS: LOVENOX 40 MG SC (16:14)
[2025-03-30] MEDS: KLONOPIN 0.5 MG PO (16:14)
[2025-03-30 19:34] VITALS: BP 127/71
[2025-03-30] MEDS: ATARAX 10 MG PO (21:41)
[2025-03-30] MEDS: TOPROL XL 50 MG PO (21:42)
[2025-03-30] MEDS: LIPITOR 80 MG PO (21:42)
[2025-03-30 23:26] VITALS: BP 125/83
[2025-03-31 03:45] VITALS: BP 98/71; BMI 36.0
[2025-03-31] MEDS: SYNTHROID PO (06:07)
[2025-03-31 07:09] LABS: Blood Urea Nitrogen 7 mg/dl (9-20); Calcium 9.3 mg/dl (8.4-10.2); Carbon Dioxide 22 mmol/L (22-30); Chloride 110 mmol/L (98-107); Estimated Creatinine Clearance > 125 ml/min; Glucose 102 mg/dl (70-99); Potassium 4.2 mmol/L (3.5-5.1); Sodium 140 mmol/L (135-145); eGFR > 60.00
[2025-03-31 07:26] LABS: % Basophils 0.3 % (0-2); % Eosinophils 3.7 % (0-6); % Immature Granulocytes 0.5 % (0-0.5); % Lymphocytes 28.2 % (20.5-51.1); % Monocytes 5.7 % (1.7-9.3); % Neutrophils 61.6 % (42.2-75.2); Absolute Eosinophils 0.3 10^3/uL (0-0.7); Absolute Lymphocytes 2.4 10^3/uL (1.2-3.4); Absolute Monocytes 0.5 10^3/uL (0.1-0.6); Absolute Neutrophils 5.3 10^3/uL (1.4-6.5); Hematocrit 39.3 % (39.0-52.0); Hemoglobin 13.2 g/dL (13.0-18.0); Mean Corp Hgb Conc. 33.6 g/dL (33.0-37.0); Mean Corpuscular Hgb 28.4 pg (27.0-31.0); Mean Corpuscular Volume 84.7 fL (80.0-94.0); Mean Platelet Volume 9.6 fL (7.4-10.4); Nucleated Red Blood Cells % 0 % (-); Platelet Count 169 10^3/uL (130-400); Red Blood Cell Count 4.64 10^6/uL (4.70-6.10); Red Cell Dist. Width 14.8 % (11.5-14.5); White Blood Cell Count 8.6 10^3/uL (4.8-10.8)
[2025-03-31 07:34] VITALS: BP 132/78
[2025-03-31 12:10] VITALS: BP 156/92
[2025-03-31] MEDS: DEPAKOTE (12 HR RELEASE) 1000 MG PO (12:18)
[2025-03-31] MEDS: LAMICTAL 100 MG PO (12:18)
[2025-03-31] MEDS: ZETIA 10 MG PO (12:18)
[2025-03-31] MEDS: PLAVIX 75 MG PO (12:19)
[2025-03-31] MEDS: LOW STRENGTH ASPIRIN 81 MG PO (12:19)
[2025-03-31] MEDS: WELLBUTRIN SR (12 hour sustained release) 200 MG PO (12:19)
[2025-03-31] MEDS: KLONOPIN 1 MG PO ×2 (12:19→21:02)
--- NOTE | 2025-03-31 12:23 | STATUS ---
SITUATION:
BACKGROUND:
ASSESSMENT:
RECOMMENDATION:
--- NOTE | 2025-03-31 12:24 | CM ---
Patient seen at bedside with SO
OBS status - form explained & signed. In chart
IA completed
Lives in 2 story home with SO, 1 step to enter, flight to bed/bath
PLOF: Independent, no device
DME: [employer]
Denies insecurities
Has had [facility] in past, has had [facility] in past
PCP: Alison Davis
Pharmacy: [facility]
PLAN: home, no needs anticipated
SO to transport
--- NOTE | 2025-03-31 13:49 | W.PN.HOSP.TC ---
Addendum entered and electronically signed by Juan Francisco Ray MD 03/31/25 14:51:
Regarding abnormal TSH-patient possibly could have subclinical hypothyroidism but with no prior values to compare her would follow TSH in 4 to 6 weeks and if persistently high then consider evaluation and treatment. His free T4 and T3 is normal.
Original Note:
Today's Communication/Plan
-
Follow-up with the cardiology recommendations
Check lipase.
Assessment / Plan
Assessment / Plan
IMPRESSION:
54-year-old with history of CAD status post stenting, recent CABG for NSTEMI in 2023 presenting to the emergency department with intermittent chest pain for the last month and a more persistent chest pain today for the last 24 hours. He says the
pain has ranged from 328 and currently a fall and not improved after sublingual nitroglycerin. The pain is nonradiating substernal. There is no diaphoresis or nausea or vomiting. While having a discussion with me the patient did appear
comfortable and not in any acute distress. ECG shows normal sinus rhythm rate of 66 and no ischemia. Troponin are negative x 2. Chest x-ray is clear. Electrolytes were normal BUN/creatinine normal and CBC normal without any new anemia. Given
history patient is highly suspicious for CAD but does not appear to have any ischemic damage at this time. Cannot rule out GERD or peptic ulcer disease.
PLAN:
Chest pain -atypical chest pain in patient with severe coronary artery disease status post CABG and prior stenting
- Negative for MD
- Low grade pain persists. Echocardiogram shows mild hypokinesis of the inferior septal wall, normal EF, no significant valvular heart disease. Stress test from today small area of mildly decreased perfusion is partially reversible in the apical
lateral wall, consistent with infarct and lencho-infarct ischemia.There is also a small fixed defect in the basal to mid inferoseptal wall with associated wall motion abnormality. Consistent with prior infarct.
-Await cardiology input regarding stress test. Thank atypical for cardiac then consider CT of the abdomen pelvis to rule out infradiaphragmatic process.
-Continue dual antiplatelet therapy with aspirin and Plavix, continue statin
-Check lipase.
- Continue with the PPI
Diabetes
-Continue metformin 500 daily for now
Bipolar
-Continue his Depakote 500 3 times daily
-Continue Wellbutrin 200 daily
-Continue lamotrigine 100
-Hydroxyzine 10
-Clonazepam 1.5
DVT prophylaxis�Lovenox subcu
CODE STATUS�full code
Anticipated Discharge: Within 24 hours
Subjective/Interval History
-
Date of Service: March 31, 2025
Chest pain persisted all day yesterday and then self subsided later in the night. This morning it was 1 out of 10 and after stress test became 3 out of 10. Localized to left lower chest send is not sure is coming from his abdomen and points
towards the epigastric area. He has been having this for many days now. No association with oral diet. Not pleuritic in nature.
He on dual antiplatelet agents for many years apparently. He has history of CAD on Protonix but no history of ulcerations or need of endoscopy upper GI.
Objective Data
-
Labs:
Laboratory Results
03/31/25
06:05
WBC 8.6
Hgb 13.2
Hct 39.3
Plt Count 169 D
Sodium 140
Potassium 4.2
Chloride 110 H
Carbon Dioxide 22
BUN 7 L
Creatinine 0.8
Glucose 102 H
Calcium 9.3
Vital Signs:
Vital Signs
Temp Pulse Resp BP Pulse Ox
97.5 F 61 16 156/92 98
03/31/25 12:10 03/31/25 12:10 03/31/25 12:10 03/31/25 12:10 03/31/25 12:10
I&O
03/30/25 03/31/25 04/01/25
06:59 06:59 06:59
Intake Total 1440 / 1440
Balance 1440 / 1440
Physical Exam
-
General: Comfortable
HEENT: Moist Mucous Membranes
Respiratory: Clear to Auscultation, Non Labored Respirations and Accessory Resp Muscle Use
Cardiac: Regular Rhythm and S1/S2; Negative Tachycardic
GI: Soft, Nondistended, Normal Bowel Sounds and Tender (In the mid to left upper quadrant area but no rebound guarding tenderness)
Neuro: AO x 3
Psych: Calm
Data Reviewed
-
Labs: Labs Reviewed by me
[2025-03-31 15:06] LABS: Lipase 57 U/L (23-300)
[2025-03-31 15:37] VITALS: BP 110/74
[2025-03-31] MEDS: OMNIPAQUE 50 ML PO (15:38)
--- NOTE | 2025-03-31 15:44 | W.PN.CD ---
Today's Communication / Plan
-
Stress test with small area of infarct and lencho-infarct ischemia
Follow-up CTAP
Optimize antianginals if no other cause of chest pain is found
Impression / Plan
-
Chest pain
- Similar to how he felt before requiring CABG. Troponin x3 negative; ECG x2 with no changes suggestive of ischemia.
- LDL at goal of <55.
- TTE 03/31/2025: LVEF 60-65%, hypokinesis of the inferoseptal wall, no valvular disease
- Lexiscan 03/31/2025: Small apical lateral infarct with lencho-infarct ischemia, small infarct in the inferoseptal wall
- Chest pain is most likely noncardiac. Primary team planning for CTA/P
- If no other etiology found, will optimize antianginal therapy and see how he does
Coronary artery disease s/p multiple stents
2-vessel CABG in 2023
Hyperlipidemia
- TTE 03/31/2025: LVEF 60-65%, hypokinesis of the inferoseptal wall, no valvular disease (stable)
- LDL at goal <55.
- Can stop Plavix. Has been 1 year since CABG.
Hypothyroidism, unmedicated: Can take levothyroxine on an empty stomach any time during the day; does not need to be in the morning; patient expressed understanding.
Severe anxiety, poorly controlled
Bipolar disorder
Tobacco use disorder, [id number] history, quit
Arthritis
Eczema
GERD
Obesity secondary to excess calorie intake
Hemorrhoids
Subjective: Chest pain is still 11/01.
Physical Exam
Vital Signs/Labs
Vital Signs
Temp Pulse Resp BP Pulse Ox
97.5 F 80 16 110/74 96
03/31/25 15:37 03/31/25 15:37 03/31/25 15:37 03/31/25 15:37 03/31/25 15:37
03/30/25 03/31/25 04/01/25
06:59 06:59 06:59
Actual Weight 243 lb 7 oz 236 lb 11.2 oz
03/31/25 06:05
03/31/25 06:05
Triglycerides 180 mg/dl (10-149) H 03/30/25 04:42
LDL Cholesterol, Calc 21 mg/dl 03/30/25 04:42
VLDL Cholesterol, Calc 36 mg/dl (0-30) H 03/30/25 04:42
HDL Cholesterol 30 mg/dl 03/30/25 04:42
TSH 13.10 uIU/ml (0.47-4.68) H 03/30/25 04:42
Free T4 1.04 ng/dl (0.78-2.19) 03/30/25 04:42
LAB Results
03/29/25 03/29/25 03/30/25
20:22 23:02 04:42
Troponin I < 0.012 < 0.012 < 0.012
Physical Exam
Constitutional: No acute distress and Comfortable
Cardiovascular: Rhythm & rate is regular, Pedal edema is absent, S1S2 is normal and Murmur/rub/gallop absent
Respiratory: Respiratory effort normal
Neuro/Psych: AO x 3
Data Reviewed
-
Date of Service: March 31, 2025
Medical Decision Making: Reviewed Test Results, Independent Historian Assessment, Test Interpretation and Review of Case with other Provider
EKG: Tracing Personally Visualized and interpreted
Echo: Tracing Personally Visualized and interpreted
X-Ray/CT/US/MRI/NUC/PET: Image Personally Visualized and interpreted
Labs: Labs Reviewed by me
[2025-03-31] MEDS: DEPAKOTE (12 HR RELEASE) PO (15:55)
[2025-03-31] MEDS: LOVENOX 40 MG SC (18:34)
[2025-03-31 19:26] VITALS: BP 132/88
[2025-03-31] MEDS: TOPROL XL 50 MG PO (22:40)
[2025-03-31] MEDS: LIPITOR 80 MG PO (22:44)
[2025-03-31] MEDS: ATARAX 10 MG PO (22:44)
[2025-03-31] MEDS: DEPAKOTE (12 HR RELEASE) 500 MG PO (22:44)
[2025-03-31 23:23] VITALS: BP 141/92
[2025-04-01 03:18] VITALS: BP 126/83
[2025-04-01] MEDS: SYNTHROID 25 MCG PO (06:10)
[2025-04-01 07:00] VITALS: BP 129/81
[2025-04-01] MEDS: WELLBUTRIN SR (12 hour sustained release) 200 MG PO (08:32)
[2025-04-01] MEDS: DEPAKOTE (12 HR RELEASE) 1000 MG PO (08:32)
[2025-04-01] MEDS: ZETIA 10 MG PO (08:32)
[2025-04-01] MEDS: LOW STRENGTH ASPIRIN 81 MG PO (08:32)
[2025-04-01] MEDS: LAMICTAL 100 MG PO (08:33)
[2025-04-01] MEDS: KLONOPIN 1 MG PO (08:33)
--- NOTE | 2025-04-01 09:19 | W.PN.CD ---
Today's Communication / Plan
-
Increase metoprolol to 100 mg daily
He should get up and walk around today and see how he feels
If chest pain persists, potential catheterization tomorrow
Impression / Plan
-
Chest pain
- Similar to how he felt before requiring CABGbut SL nitro did not help. Troponin x3 negative; ECG x2 with no changes suggestive of ischemia.
- TTE 03/31/2025: LVEF 60-65%, hypokinesis of the inferoseptal wall, no valvular disease (stable from prior)
- Lexiscan 03/31/2025: Small apical lateral infarct with lencho-infarct ischemia, small infarct in the inferoseptal wall
- Chest pain is most likely noncardiac given stress test with only small area of lencho-infarct ischemia but we will try to optimize meds and see how he feels.
- Increase Metoprolol to 100mg daily
Coronary artery disease s/p multiple stents
2-vessel CABG in 2023
Hyperlipidemia
- TTE 03/31/2025: LVEF 60-65%, hypokinesis of the inferoseptal wall, no valvular disease (stable)
- LDL at goal <55.
- Can stop Plavix. Has been 1 year since CABG.
- Continue aspirin, statin, and beta-marika
Hypothyroidism, unmedicated: Can take levothyroxine on an empty stomach any time during the day; does not need to be in the morning; patient expressed understanding.
Severe anxiety, poorly controlled
Bipolar disorder
Tobacco use disorder, [id number] history, quit
Arthritis
Eczema
GERD
Obesity secondary to excess calorie intake
Hemorrhoids
Subjective: Chest pain was better yesterday and almost completely gone today.
Physical Exam
Vital Signs/Labs
Vital Signs
Temp Pulse Resp BP Pulse Ox
97.8 F 72 20 129/81 98
04/01/25 07:00 04/01/25 07:00 04/01/25 07:00 04/01/25 07:00 04/01/25 07:00
03/31/25 04/01/25 04/02/25
06:59 06:59 06:59
Actual Weight 236 lb 11.2 oz
03/31/25 06:05
03/31/25 06:05
Triglycerides 180 mg/dl (10-149) H 03/30/25 04:42
LDL Cholesterol, Calc 21 mg/dl 03/30/25 04:42
VLDL Cholesterol, Calc 36 mg/dl (0-30) H 03/30/25 04:42
HDL Cholesterol 30 mg/dl 03/30/25 04:42
TSH 13.10 uIU/ml (0.47-4.68) H 03/30/25 04:42
Free T4 1.04 ng/dl (0.78-2.19) 03/30/25 04:42
LAB Results
03/29/25 03/29/25 03/30/25
20:22 23:02 04:42
Troponin I < 0.012 < 0.012 < 0.012
Physical Exam
Constitutional: No acute distress and Comfortable
Cardiovascular: Rhythm & rate is regular, Pedal edema is absent, S1S2 is normal and Murmur/rub/gallop absent
Respiratory: Respiratory effort normal and Lungs clear to auscul.
Neuro/Psych: AO x 3
Data Reviewed
-
Date of Service: April 01, 2025
Medical Decision Making: Reviewed Test Results, Independent Historian Assessment, Test Interpretation and Review of Case with other Provider
EKG: Tracing Personally Visualized and interpreted
Echo: Report Reviewed by me
X-Ray/CT/US/MRI/NUC/PET: Report Reviewed by me
Labs: Labs Reviewed by me
[2025-04-01] MEDS: PROTONIX 40 MG PO (10:04)
[2025-04-01] MEDS: LOPRESSOR 50 MG PO (10:05)
[2025-04-01 11:15] VITALS: BP 138/88
--- NOTE | 2025-04-01 12:22 | W.PN.HOSP.TC ---
Today's Communication/Plan
-
Off of Plavix now. Continue with aspirin
Dose of beta-marika increased by cardiology today
PPI twice daily added today
Assessment / Plan
Assessment / Plan
IMPRESSION:
54-year-old with history of CAD status post stenting, recent CABG for NSTEMI in 2023 presenting to the emergency department with intermittent chest pain for the last month and a more persistent chest pain today for the last 24 hours. He says the
pain has ranged from 328 and currently a fall and not improved after sublingual nitroglycerin. The pain is nonradiating substernal. There is no diaphoresis or nausea or vomiting. While having a discussion with me the patient did appear
comfortable and not in any acute distress. ECG shows normal sinus rhythm rate of 66 and no ischemia. Troponin are negative x 2. Chest x-ray is clear. Electrolytes were normal BUN/creatinine normal and CBC normal without any new anemia. Given
history patient is highly suspicious for CAD but does not appear to have any ischemic damage at this time. Cannot rule out GERD or peptic ulcer disease.
PLAN:
Chest pain -atypical chest pain in patient with severe coronary artery disease status post CABG and prior stenting
- Negative for RI
- Echocardiogram shows mild hypokinesis of the inferior septal wall, normal EF, no significant valvular heart disease. Stress test from today small area of mildly decreased perfusion is partially reversible in the apical lateral wall, consistent
with infarct and lencho-infarct ischemia.There is also a small fixed defect in the basal to mid inferoseptal wall with associated wall motion abnormality. Consistent with prior infarct.
-CT of the abdomen pelvis shows no acute pathology to account for his chest pain. LFTs and lipase normal.
- Patient on dual antiplatelet agents which raises gastric pathology but does not seem to be symptomatic with his acute symptoms or dyspepsia. He had vague tenderness yesterday in the upper abdomen but none today. CT abdomen pelvis as above. With
no continued indication for dual antiplatelet agents Plavix is discontinued by cardiology. Will give a trial of PPI as well to see if this is a gastric in nature.
-Continue dual antiplatelet therapy with aspirin , continue statin
-Dose of beta-marika increased by cardiology
- Still persistent symptoms plan for left heart catheter tomorrow noted.
Diabetes
-Continue metformin 500 daily for now
Bipolar
-Continue his Depakote 500 3 times daily
-Continue Wellbutrin 200 daily
-Continue lamotrigine 100
-Hydroxyzine 10
-Clonazepam 1.5
DVT prophylaxis�Lovenox subcu
CODE STATUS�full code
Anticipated Discharge: Within 24 hours
Subjective/Interval History
-
Date of Service: April 01, 2025
He denied any chest pain to me currently. No shortness of breath.
No nausea vomiting. Tolerating diet.
Objective Data
-
Vital Signs:
Vital Signs
Temp Pulse Resp BP Pulse Ox
97.8 F 66 20 138/88 97
04/01/25 11:15 04/01/25 11:15 04/01/25 11:15 04/01/25 11:15 04/01/25 11:15
I&O
03/31/25 04/01/25 04/02/25
06:59 06:59 06:59
Intake Total 1440 / 1440 480 / 480
Balance 1440 / 1440 480 / 480
Review of Systems
-
Constitutional: Denies Fever
EENT: Denies Sore Throat
Abdomen/GI: Denies Abdominal Pain, Nausea or Vomiting
Neuro: Denies Dizzy
Physical Exam
-
General: No Apparent Distress
HEENT: Moist Mucous Membranes
Respiratory: Clear to Auscultation
Cardiac: Regular Rhythm and S1/S2
GI: Soft and Nontender (today)
Neuro: AO x 3
Data Reviewed
-
CT Scan: Report Reviewed by me (CT of abdomen pelvis)
--- NOTE | 2025-04-01 13:50 | CM ---
Patient chart reviewed
metoprolol increased, encourage ambulation
PLAN: home, no needs anticipated when stable
[2025-04-01 15:20] VITALS: BP 123/81
--- NOTE | 2025-04-01 15:59 | W.DCSUMMARY ---
Discharge Summary
Discharge Data
Date of Admission: 03/30/25
Date of Discharge: 04/01/25
-
Pending Results: No
Hospital Course
Primary diagnosis:
Atypical chest pain
Secondary diagnosis:
Coronary artery disease status post prior coronary stents
Two-vessel CABG in 2023
Hyperlipidemia
Hypothyroidism
Bipolar disorder
Gastroesophageal reflux disease
Diabetes mellitus type 2
Hospital course:
Patient with history of CAD status post prior coronary stents and CABG presented with chest pain. The patient stated that his chest pain is similar to the pain he experienced prior to undergoing CABG but less intense. It has been present for 1
month and has been intermittent and was constant on the day of admission. He was taking nitroglycerin at home without relief. No known aggravating or relieving factors. No relation to oral intake.
His EKG and troponins did not support a cardiac event. Echocardiogram showed normal EF 60 to 65%. Mild hypokinesis of the inferior septal wall, no significant valvular heart disease noted and no changes compared to echocardiogram from March 2024.
Lexiscan 03/31/2025: Small apical lateral infarct with lencho-infarct ischemia, small infarct in the inferoseptal wall. Chest pain is felt most likely noncardiac by cardiology given stress test with only small area of lencho-infarct ischemia but we will
try to optimize meds and see how he feels. Increase Metoprolol to 100mg daily.
He also had some nonspecific epigastric/left lower quadrant discomfort for which he had a CT of the abdomen pelvis with IV contrast which was negative for any acute findings. With the chest pain being atypical I increased the PPI as well to twice a
day.
He was on dual antiplatelet agents and felt Plavix is no more indicated at this point after his surgery and was stopped by cardiology.
With above measures he had resolution of his pains and cardiology cleared for discharge from their standpoint today.
Patient advised to return to the ER if any recurrent chest pain.
Consultants on board:
Cardiology-Dae Chavis
Discharge Plan
-
Patient Disposition: Home (Routine Discharge)
Discharge Diagnosis/Procedures: Atypical Chest pain
Diet: Low Cholesterol
Activity: As tolerated
Driving Restrictions: As prior to admission
Bathing Restrictions: None
Blood Work: Repeat thyroid function testing in 4 to 6 weeks per primary doctor.
Referrals:
Yosvany Cagle MD [Primary Care Provider, [facility]] - in less than 1 week
Prescriptions:
New
metoprolol succinate 100 mg Tablet Extended Release 24 Hr
100 mg PO HS Qty: 30 0RF
pantoprazole 40 mg Tablet,Delayed Release (Dr/Ec)
40 mg PO BID Qty: 30 0RF
Rx Instructions:
Take it twice a day for 2 weeks and after that once a day
Continued
hydroxyzine HCl 10 MG tablet
10 mg PO HS
atorvastatin 80 MG tablet
80 mg PO HS
divalproex 500 MG tablet,delayed release (DR/EC)
500 mg PO HS
divalproex 500 MG tablet,delayed release (DR/EC)
1,000 mg PO DAILY
clonazepam 1 MG tablet
1 mg PO BID
metformin 500 mg Tablet
500 mg PO DAILY
lamotrigine 100 mg Tablet
100 mg PO DAILY
bupropion HCl 200 mg Tablet Sustained-Release 12 Hr
200 mg PO DAILY
aspirin [Children's Aspirin] 81 mg Tablet,Chewable
81 mg PO DAILY Qty: 0 0RF
ezetimibe [Zetia] 10 mg Tablet
10 mg PO HS
Discontinued
clopidogrel 75 MG tablet
75 mg PO DAILY Qty: 90 3RF
metoprolol succinate 50 MG tablet extended release 24 hr
50 mg PO HS
pantoprazole 40 MG tablet,delayed release (DR/EC)
40 mg PO HS
Discharge Orders:
Discharge Patient (As Directed); Ordered 04/01/25
Ordered By: uJan Francisco Ray
Discharge Date and Time
Print Language: KYRGYZ
== END 2025-04-01 17:20 | disposition home or self-care (01) ==
LOC: 3 WEST ACU 01:37
PROVIDERS: Hospitalist; Nurse Practitioner; Student in an Organized Health Care Education/Training Program; ADMITTING PHYSICIAN Internal Medicine; ATTENDING PHYSICIAN Internal Medicine; CONSULT PHYSICIAN Internal Medicine; EMERGENCY PHYSICIAN Student in an Organized Health Care Education/Training Program; PRIMARYCARE PHYSICIAN Family Medicine
DX: R07.89 Other chest pain (principal); R06.09 Other forms of dyspnea; F41.9 Anxiety disorder, unspecified; I10 Essential (primary) hypertension; E78.00 Pure hypercholesterolemia, unspecified; E11.9 Type 2 diabetes mellitus without complications; I25.10 Atherosclerotic heart disease of native coronary artery without angina pectoris; E03.9 Hypothyroidism, unspecified; K21.9 Gastro-esophageal reflux disease without esophagitis; R94.31 Abnormal electrocardiogram [ECG] [EKG]; F31.9 Bipolar disorder, unspecified; M19.90 Unspecified osteoarthritis, unspecified site; L30.9 Dermatitis, unspecified; E66.01 Morbid (severe) obesity due to excess calories; I25.2 Old myocardial infarction; Z95.1 Presence of aortocoronary bypass graft; Z95.5 Presence of coronary angioplasty implant and graft; Z79.82 Long term (current) use of aspirin; Z79.02 Long term (current) use of antithrombotics/antiplatelets; Z82.49 Family history of ischemic heart disease and other diseases of the circulatory system; Z82.41 Family history of sudden cardiac death; Z79.84 Long term (current) use of oral hypoglycemic drugs; Z79.899 Other long term (current) drug therapy; Z86.16 Personal history of COVID-19; Z87.19 Personal history of other diseases of the digestive system; Z68.36 Body mass index [BMI] 36.0-36.9, adult; Z87.891 Personal history of nicotine dependence; Z82.3 Family history of stroke; Z81.3 Family history of other psychoactive substance abuse and dependence
CPT/HCPCS: 71046; 74177; 78452; 80048; 80053; 80061; 83036; 83690; 84439; 84443; 84481; 84484; 85025; 85379; 93005; 93017; 93306; 96360; 99285; A9500; G0378; Q9967

== ENCOUNTER 2025-06-22 11:16 | Emergency (ER) | payer OTHER, SELFPAY ==
[2025-06-22 11:22] VITALS: BP 176/110
--- NOTE | 2025-06-22 11:32 | ED.GENMED ---
History of Present Illness
General
Chief Complaint: Chest Pain
Source: patient
Exam Limitations: none
Time Seen by Provider: 06/22/25 11:31
Nursing documentation reviewed up to this point in time: agreed with
History of Present Illness
History of Present Illness:
Patient with history of CAD, with multiple previous cardiac stents, as well as recent bypass surgery in 2023, presents to ED secondary to recurrent chest pain, starting last night. Chest pain described as 'discomfort', which has been intermittent.
Denies alleviating or exacting factors. Patient also reports waking up at night, in sweats. Patient was concerned that previous chest pain, which is present at least once a week, may be getting worse, with duration and sweatiness last night.
Patient was admitted to the hospital earlier this year, during which time, his counseling center manager told him that there is 1 additional blockage, which will be treated medically. Patient is currently on aspirin and Plavix. Unfortunately, for the past 2
days, patient has forgot to take his medications.
Past History
Past History
ED Past Medical History: CAD, HTN, Hypercholesterolemia and GA
ED Past Surgical History: Cardiac (Stents X2, CABG)
Social History
Tobacco: Former smoker
Alcohol: None
Drug: Marijuana
Personal: Single
Living: alone
Family History
Family History: Early CAD, CAD and Sudden
Review of Systems
Review of Systems
Allergies reviewed?: Yes
All Other Systems: ROS reviewed and negative except as documented in HPI and ROS
Constitutional: Reports no symptoms
EENT: Reports no symptoms
Respiratory: Reports no symptoms
Cardiac: Reports chest pain and diaphoresis
ABD/GI: Reports no symptoms
: Reports no symptoms
Musculoskeletal: Reports no symptoms
Skin: Reports no symptoms
Neurological: Reports no symptoms
Phy Exam
Physical Exam
Physical Exam:
Physical Exam
General: no apparent distress, not acutely ill. afebrile
Head: nc/at. eomi
Neck: supple. no meningeal signs.
Heart: s1/s2 regular rate and rhythm
Lungs: no acute respiratory distress. clear bilaterally
Abdomen: normal bowel sounds. not tender.
: erythema/tenderness noted at base of penile head, without open drainage.
Neuro: alert and oriented x 3. no focal neurological deficits
Skin: no rash
Psychiatric: well kept. interactive and cooperative
Extremities: no edema. no calf tenderness.
Scores
Heart Score for Chest Pain Patients
STEMI patient?: No
History: Slightly or Non-Suspicious
ECG: Normal
Age: >45 - <65 years
Risk Factors: >/= 3 Risk Factors or History of CAD
Troponin: </= Normal Limit
Heart Score for Chest Pain Patients: 3
Heart Score Risk: 2.5% MACE over next 6 weeks
Course
Orders/Labs/Results
Orders:
Orders
06/22/25 11:22
ECG [Electrocardiogram (*1)] Urgent
Reason for Study: Chest Pain
EKG- Treatment ONCE
06/22/25 11:45
0.9% Sodium Chloride 250 ml [Nss] 250 ml IV BOLUS
Aspirin Chewable [Low Strength Aspirin] 81 mg PO NOW STA
Clopidogrel Bisulfate [Plavix] 75 mg PO NOW STA
Nitroglycerin Sublingual [Nitrostat (Sublingual)] 0.4 mg SL NOW STA
06/22/25 11:53
Aspirin Chewable [Low Strength Aspirin] 81 mg .ROUTE .STK-MED ONE
06/22/25 11:54
Complete Blood Count/No Diff Urgent
Comprehensive Metabolic Panel Urgent
Magnesium Urgent
Troponin I Urgent
Abnormal Lab Results
06/22/25
11:54
BUN 8 L mg/dl
(9-20)
Glucose 230 H mg/dl
(70-99)
06/22/25 11:54
06/22/25 11:54
Vital Signs
Initial and Last Documented VS:
Initial Vital Signs
Temp Pulse Resp BP Pulse Ox
98.3 F 73 22 176/110 98
06/22/25 11:22 06/22/25 11:22 06/22/25 11:22 06/22/25 11:22 06/22/25 11:22
Last Documented Vital Signs
Temp Pulse Resp BP Pulse Ox
98.3 F 75 16 152/86 97
06/22/25 11:22 06/22/25 12:45 06/22/25 12:45 06/22/25 12:17 06/22/25 12:45
MDM/Problems Addressed
MDM/Problems Addressed:
Patient remains comfortable during observation ED, along with unremarkable workup, including EKG and troponin. Discussed with on-call cardiology, Dr. Justin, who recommends either discharging patient home on Imdur, with negative workup despite
duration of symptoms. However, feels that it is also reasonable to offer him admission to the patient, if he feels uncomfortable. After discussion, patient feels comfortable going home at this time, as he already has an appointment with his
primary counseling center manager next week. Patient states that he will return to ED with recurrent or worsening symptoms. Prescription for Imdur, along with antifungal cream for clinical balanitis, sent to patient's pharmacy. In addition, advised the
patient to not miss any more of his daily medications, including antihypertensive medication, aspirin, and Plavix. Patient expressed understanding at time of discharge.
*Pulse Oximetry
SaO2: 98
Oxygen Mode of Delivery: Room air
Patient hypoxic: no
*EKG
Interpreted by ED Provider?: Yes
EKG Intrepretation Date: 06/22/25
Heart Rate: 68
Rate: normal
Rhythm: sinus
Boyds: normal axis
Interval: normal interval
*Critical Care Note
Total Time (30-74mins, 75-104mins- exclusive of procedures): Not Applicable
ED Attending Note
-
Portions of this chart may have been created with voice recognition software.� Occasional wrong word or��sound alike� substitutions may have occurred due to the inherent limitations of voice recognition software.
Discharge Plan
Departure
Patient Disposition: Home (Routine Discharge)
Date of Disposition: 06/22/25
Time of Disposition: 13:36
Patient with high blood pressure during this ER visit?: Yes
Condition: Fair
Discharge Problem:
Chest pain, Balanitis
Instructions: Balanitis in adults, Chest Pain DCA Follow Up
Prescriptions:
New
isosorbide mononitrate 30 mg tablet extended release 24 hr
30 mg PO DAILY Qty: 20 0RF
clotrimazole 1 % cream
1 applic topical BID 14 Days Qty: 30 0RF
No Action
hydroxyzine HCl 10 MG tablet
10 mg PO HS
atorvastatin 80 MG tablet
80 mg PO HS
divalproex 500 MG tablet,delayed release (DR/EC)
500 mg PO HS
divalproex 500 MG tablet,delayed release (DR/EC)
1,000 mg PO DAILY
clonazepam 1 MG tablet
1 mg PO BID
metformin 500 mg Tablet
500 mg PO DAILY
lamotrigine 100 mg Tablet
100 mg PO DAILY
bupropion HCl 200 mg Tablet Sustained-Release 12 Hr
200 mg PO DAILY
aspirin [Children's Aspirin] 81 mg Tablet,Chewable
81 mg PO DAILY Qty: 0 0RF
ezetimibe [Zetia] 10 mg Tablet
10 mg PO HS
metoprolol succinate 100 mg Tablet Extended Release 24 Hr
100 mg PO HS Qty: 30 0RF
pantoprazole 40 mg Tablet,Delayed Release (Dr/Ec)
40 mg PO BID Qty: 30 0RF
Rx Instructions:
Take it twice a day for 2 weeks and after that once a day
Referrals:
Feliberto Ruffin MD [Active, Cardiology]
Carrington Thakur MD [Active, Urology]
UNKNOWN - PT DOES,NOT KNOW [Unknown Provider]
Stand Alone Forms: Return to Work
Activity Restrictions/Additional Instructions:
As discussed, please follow-up with your counseling center manager as scheduled on Monday for reevaluation. In addition, return recommend outpatient consultation with referred urologist regarding inflammation noted on your genitalia. Your prescriptions have
been sent electronically to [facility] pharmacy in [place].
Interventions
Interventions:
*Risk Screen - Suicide Last Done: 06/22/25 11:22
*General Assessment Last Done: 06/22/25 11:22
*Neglect/Abuse Screening Last Done: 06/22/25 11:22
*ED- Fall Risk Assessment Last Done: 06/22/25 11:42
*ED COVID-19 Vaccine History Last Done: 06/22/25 11:42
*Nursing Disposition Last Done: 06/22/25 13:56
ED- Cardiac Assessment Last Done: 06/22/25 11:42
Discharge Date and Time
Discharge Date/Time: 06/22/25 13:50
Print Language: BELIZEAN
[2025-06-22 11:46] VITALS: BMI 38.2
[2025-06-22] MEDS: LOW STRENGTH ASPIRIN 81 MG PO (11:49)
[2025-06-22] MEDS: PLAVIX 75 MG PO (11:49)
[2025-06-22] MEDS: NITROSTAT (SUBLINGUAL) 0.4 MG SL (11:49)
[2025-06-22] MEDS: NSS 250 IV (11:50)
[2025-06-22 12:15] LABS: Hematocrit 39.3 % (39.0-52.0); Hemoglobin 13.4 g/dL (13.0-18.0); Mean Corp Hgb Conc. 34.1 g/dL (33.0-37.0); Mean Corpuscular Volume 82.9 fL (80.0-94.0); Platelet Count 227 10^3/uL (130-400); Red Cell Dist. Width 13.4 % (11.5-14.5)
[2025-06-22 12:17] VITALS: BP 152/86
[2025-06-22 12:25] LABS: ALT (SGPT) 35 U/L (0-50); AST (SGOT) 27 U/L (17-59); Albumin 4.3 g/dl (3.5-5.0); Alkaline Phosphatase 69 U/L (38-126); Blood Urea Nitrogen 8 mg/dl (9-20); Calcium 9.4 mg/dl (8.4-10.2); Carbon Dioxide 25 mmol/L (22-30); Chloride 106 mmol/L (98-107); Estimated Creatinine Clearance > 125 ml/min; Glucose 230 mg/dl (70-99); Magnesium 1.7 mg/dl (1.6-2.3); Potassium 4.5 mmol/L (3.5-5.1); Sodium 135 mmol/L (135-145); Total Protein 7.0 g/dl (6.3-8.2); eGFR > 60.00
[2025-06-22 12:37] LABS: Troponin I < 0.012 ng/ml
== END 2025-06-22 13:50 | disposition home or self-care (01) ==
LOC: EMR 11:16
PROVIDERS: EMERGENCY PHYSICIAN Emergency Medicine; FAMILY PHYSICIAN Nurse Practitioner Family
DX: R07.89 Other chest pain (principal); N48.1 Balanitis; I25.10 Atherosclerotic heart disease of native coronary artery without angina pectoris; I10 Essential (primary) hypertension; E78.00 Pure hypercholesterolemia, unspecified; I25.2 Old myocardial infarction; Z79.02 Long term (current) use of antithrombotics/antiplatelets; Z79.82 Long term (current) use of aspirin; Z82.49 Family history of ischemic heart disease and other diseases of the circulatory system; Z87.891 Personal history of nicotine dependence; Z95.1 Presence of aortocoronary bypass graft; Z95.5 Presence of coronary angioplasty implant and graft
CPT/HCPCS: 99283; 96360; 80053; 83735; 84484; 85027; 93005